=== PATIENT | male | born 1965 | race Hispanic/Latino ===

== ENCOUNTER 2017-08-18 05:31 | Emergency (ER) | payer OTHER ==
[~2017-08-18 05:31] MED LIST: ALBU90AE IH; ALPR0.255 PO; BENZ200C53 PO; BUDE0.5A3 IH; CODE10LI PO; DILT120T15 PO; ENOX40DI9 SQ; FAMO20TA8 PO; INSLAN SQ; LEVO750P7 IV; PIPE3.379 IV; POLY17PO3 PO; PRED20TA3 PO; TIOT18CA3 IH; TRAZ150T79 PO
[2017-08-18] MEDS ORDERED: ONDANSETRON HCL 4 MG/2 ML VIAL ONE (05:44)
[2017-08-18] MEDS ORDERED: METHYLPREDNISOLONE SOD SUCC 125MG/2ML VIAL ONE (05:44)
[2017-08-18] MEDS ORDERED: IPRATROPIUM/ALBUTEROL SULFATE 3 ML SOLUTION IH ONE ×2 (05:49→06:21)
[2017-08-18 05:55] LABS: BASOPHILS % (AUTO) 0.5 % (0.0-5.0); EOSINOPHILS % (AUTO) 0.4 % (0.0-8.0); HEMATOCRIT 38.7 % (42-54); LYMPHOCYTES % (AUTO) 16.2 % (21.0-51.0); MEAN CORPUSCULAR HEMOGLOBIN 30.5 pg (27.0-33.0); MEAN CORPUSCULAR HGB CONC 34.5 g/dL (32.0-36.0); MEAN CORPUSCULAR VOLUME 88.3 fL (79-99); MONOCYTES % (AUTO) 13.1 % (3.0-13.0); NEUTROPHILS % (AUTO) 69.8 % (40.0-77.0); NUCLEATED RED BLOOD CELLS 0.1 % (0.0-0.19); PLATELET COUNT (AUTO) 183 K/uL (130-400); RED BLOOD CELL COUNT(AUTO) 4.39 MIL/uL (4.50-6.20); RED CELL DISTRIBUTION WIDTH 16.9 % (11.0-15.5); WHITE BLOOD COUNT (AUTO) 6.8 K/uL (4.8-10.8)
[2017-08-18 06:07] LABS: CREATININE 0.8 mg/dL (0.5-1.5); POTASSIUM 4.5 mmol/L (3.5-5.1)
[2017-08-18 06:15] LABS: B-TYPE NATRIURETIC PEPTIDE 43 pg/mL (0-100)
[2017-08-18] MEDS ORDERED: MORPHINE SULFATE 4 MG/1ML SYG ONE (06:22)
[2017-08-18] MEDS ORDERED: LEVOFLOXACIN 750 MG/D5W 150 ML 150 ML ONE (07:41)
[2017-08-18] MEDS ORDERED: ALBUTEROL SULFATE 0.083% 2.5 MG/3 ML INH IH ONE (07:54)
[2017-08-18] MEDS ORDERED: ACETAMINOPHEN-CODEINE ELIXIR 5 ML UDCUP ONE (08:00)
[2017-12-27] MEDS ORDERED: TRAZ-147 PO (11:13)
== END 2017-08-18 10:31 | disposition home or self-care (01) ==
LOC: EDH 05:31
DX: J44.1 Chronic obstructive pulmonary disease with (acute) exacerbation (principal); I11.0 Hypertensive heart disease with heart failure; I50.9 Heart failure, unspecified; E11.9 Type 2 diabetes mellitus without complications; Z98.890 Other specified postprocedural states; Z88.8 Allergy status to other drugs, medicaments and biological substances
CPT/HCPCS: 36415; 71010; 80048; 83880; 84484; 85025; 87804 ×2; 93005; 94640 ×3; 96365; 96374; 96375; 99285; J1956; J2270; J2405; J2930

== ENCOUNTER 2017-08-23 13:04 | Inpatient (IN) | payer OTHER ==
[~2017-08-23] VITALS: Ht 182.9 cm; Wt 120.8 kg
[2017-08-23 13:38] LABS: BASOPHILS % (AUTO) 0.1 % (0.0-5.0); HEMATOCRIT 42.2 % (42-54); LYMPHOCYTES % (AUTO) 3.5 % (21.0-51.0); MEAN CORPUSCULAR HEMOGLOBIN 29.6 pg (27.0-33.0); MEAN CORPUSCULAR HGB CONC 33.9 g/dL (32.0-36.0); MEAN CORPUSCULAR VOLUME 87.2 fL (79-99); MONOCYTES % (AUTO) 10.5 % (3.0-13.0); NEUTROPHILS % (AUTO) 85.9 % (40.0-77.0); PLATELET COUNT (AUTO) 170 K/uL (130-400); RED BLOOD CELL COUNT(AUTO) 4.84 MIL/uL (4.50-6.20); WHITE BLOOD COUNT (AUTO) 9.1 K/uL (4.8-10.8)
[2017-08-23 13:45] LABS: POTASSIUM 3.9 mmol/L (3.5-5.1)
[2017-08-23 13:52] LABS: ABG BASE EXCESS 3.5 mmol/L (-2.0-3.0); ABG HCO3 27.6 mmol/L (21.0-28.0); ABG OXYGEN SATURATION 97.2 % (95.0-99.0); ABG PCO2 40 mmHg (35-48)
[2017-08-23] MEDS ORDERED: 1/2 NORMAL SALINE 1,000 ML IV ONE (15:00)
[2017-08-23] MEDS ORDERED: LEVOFLOXACIN 750 MG/D5W 150 ML 150 ML ONE (15:00)
[2017-08-23] MEDS ORDERED: IPRATROPIUM 0.5 MG/2.5 ML INH IH ONE (15:09)
[2017-08-23] MEDS ORDERED: ALBUTEROL SULFATE 0.083% 2.5 MG/3 ML INH IH ONE (15:09)
[2017-08-23] MEDS ORDERED: VANCOMYCIN 1GM+NS 250ML 250 ML IV ONE (16:35)
[2017-08-23] MEDS ORDERED: HYDROMORPHONE HCL 0.5 MG/0.5 ML ML ONE ×2 (17:07→21:18)
[2017-08-23] MEDS ORDERED: IPRATROPIUM/ALBUTEROL SULFATE 3 ML SOLUTION IH ONE ×2 (18:12→23:40)
[2017-08-23 19:27] LABS: APPEARANCE,URINE Clear (CLEAR); BILIRUBIN,URINE Negative (NEGATIVE); COLOR,URINE Yellow (YELLOW); GLUCOSE, URINE (UA) 250 mg/dL (NEGATIVE); KETONES,URINE Negative (NEGATIVE); LEUKOCYTE ESTERASE ,URINE Negative (NEGATIVE); NITRATE,URINE Negative (NEGATIVE); OCCULT BLOOD,URINE Negative (NEGATIVE); PROTEIN,URINE Negative (NEGATIVE)
[2017-08-23 19:36] LABS: BACTERIA,URINE None Seen /HPF (None Seen); RBC,URINE None Seen /HPF (0-1); SQUAMOUS EPITHELIAL CELL,UR 0-2 /LPF (0-2); WBC,URINE 0-1 /HPF (0-1)
[2017-08-24] MEDS ORDERED: HYDROMORPHONE HCL 0.5 MG/0.5 ML ML ONE ×2 (01:27→04:59)
[2017-08-24] MEDS ORDERED: ISOVUE-370 50ML VIAL IV ONE (03:52)
[2017-08-24 05:42] LABS: BASOPHILS % (AUTO) 0.5 % (0.0-5.0); EOSINOPHILS % (AUTO) 0.7 % (0.0-8.0); HEMATOCRIT 41.2 % (42-54); LYMPHOCYTES % (AUTO) 11.7 % (21.0-51.0); MEAN CORPUSCULAR HEMOGLOBIN 29.6 pg (27.0-33.0); MEAN CORPUSCULAR HGB CONC 33.9 g/dL (32.0-36.0); MEAN CORPUSCULAR VOLUME 87.4 fL (79-99); MONOCYTES % (AUTO) 14.7 % (3.0-13.0); NEUTROPHILS % (AUTO) 72.4 % (40.0-77.0); NUCLEATED RED BLOOD CELLS 0.1 % (0.0-0.19); PLATELET COUNT (AUTO) 149 K/uL (130-400); RED BLOOD CELL COUNT(AUTO) 4.72 MIL/uL (4.50-6.20); RED CELL DISTRIBUTION WIDTH 17.3 % (11.0-15.5); WHITE BLOOD COUNT (AUTO) 7.2 K/uL (4.8-10.8)
[2017-08-24 05:51] LABS: CREATININE 0.8 mg/dL (0.5-1.5)
[2017-08-24] MEDS ORDERED: SODIUM CHLORIDE 3% FOR INHALATION 4 ML/AMP VIAL.NEB IH ONE (06:43)
[2017-08-24] MEDS ORDERED: IPRATROPIUM 0.5 MG/2.5 ML INH IH ONE ×2 (06:52→11:24)
[2017-08-24] MEDS ORDERED: ALBUTEROL SULFATE 0.083% 2.5 MG/3 ML INH IH ONE ×2 (06:52→11:24)
[2017-08-24] MEDS ORDERED: DOCUSATE SODIUM 100 MG CAP PO PRN (07:30)
[2017-08-24] MEDS: INSULIN R PO SSI SQ SCH ×4 (07:30→21:00)
[2017-08-24] MEDS ORDERED: DEXTROSE 50%-WATER 50 ML DISP.SYRIN IV PRN (07:30)
[2017-08-24] MEDS ORDERED: GLUCAGON 1MG KIT 1 MG ML IM PRN (07:30)
[2017-08-24] MEDS ORDERED: HYDROMORPHONE 1 MG/1 ML AMP ONE ×2 (08:41→12:43)
[2017-08-24] MEDS ORDERED: ACETAMINOPHEN 325 MG TAB ONE (10:34)
[2017-08-24] MEDS ORDERED: IPRATROPIUM/ALBUTEROL SULFATE 3 ML SOLUTION IH ONE (11:25)
[2017-08-24] MEDS: IPRATROPIUM/ALBUTEROL SULFATE 3 ML SOLUTION IH SCH ×2 (11:29→18:52)
[2017-08-24 14:30] VITALS: BP 118/72
[2017-08-24 16:00] VITALS: BP 108/70
[2017-08-24] MEDS ORDERED: HYDROMORPHONE HCL 0.5 MG/0.5 ML ML IVP PRN (18:00)
[2017-08-24 19:39] VITALS: BP 132/82
[2017-08-24] MEDS: 1/2 NORMAL SALINE 1,000 ML IV SCH (20:37)
[2017-08-24] MEDS: ACETAMINOPHEN 325 MG TAB PO PRN (20:44)
[2017-08-24] MEDS ORDERED: MORPHINE SULFATE 2 MG/ML 1ML SYG IM PRN (23:30)
[2017-08-24 23:48] VITALS: BP 118/73
[2017-08-25] MEDS: IPRATROPIUM/ALBUTEROL SULFATE 3 ML SOLUTION IH SCH ×5 (00:07→23:14)
[2017-08-25] MEDS ORDERED: SODIUM CHLORIDE 0.9% 1000ML 1,000 ML IV ONE ×2 (03:15→04:02)
[2017-08-25 03:40] VITALS: BP 104/64
[2017-08-25] MEDS: 1/2 NORMAL SALINE 1,000 ML IV SCH ×2 (05:56→15:34)
[2017-08-25] MEDS: INSULIN R PO SSI SQ SCH ×4 (05:57→20:28)
[2017-08-25] MEDS: MORPHINE SULFATE 2 MG/ML 1ML SYG IV PRN ×5 (06:43→22:19)
[2017-08-25] MEDS ORDERED: DILTIAZEM 125MG+100 ML NS 125 ML IV SCH (06:45)
[2017-08-25 07:25] VITALS: BP 126/76
[2017-08-25] MEDS: LEVOFLOXACIN 750 MG/D5W 150 ML 150 ML IV SCH (10:05)
[2017-08-25 11:01] VITALS: BP 90/57
[2017-08-25] MEDS ORDERED: TRAZODONE HCL 100 MG TABLET PO PRN (14:15)
[2017-08-25] MEDS ORDERED: DILTIAZEM HCL 120 MG CAP.SR.24H PO ONE (14:49)
[2017-08-25] MEDS ORDERED: LEVOFLOXACIN 750 MG/D5W 150 ML 150 ML IV SCH (15:00)
[2017-08-25] MEDS ORDERED: DILTIAZEM HCL 120 MG CAP.SR.24H PO SCH (15:00)
[2017-08-25 16:37] VITALS: BP 132/59
[2017-08-25] MEDS ORDERED: PHARMACY COMMUNICATION MISC SCH (17:15)
[2017-08-25] MEDS: ALPRAZOLAM 0.25 MG TABLET PO SCH ×2 (17:32→20:42)
[2017-08-25] MEDS: ACETAMINOPHEN 325 MG TAB PO PRN ×2 (17:33→20:42)
[2017-08-25] MEDS: GUAIFENESIN-CODEINE 5 ML SYRUP PO SCH ×2 (17:33→20:43)
[2017-08-25] MEDS: DILTIAZEM HCL 120 MG CAP.SR.24H PO SCH (17:33)
[2017-08-25] MEDS ORDERED: OSELTAMIVIR PHOSPHATE 75 MG CAP PO SCH (18:30)
[2017-08-25 18:52] LABS: APPEARANCE,URINE Clear (CLEAR); BILIRUBIN,URINE Negative (NEGATIVE); COLOR,URINE Yellow (YELLOW); GLUCOSE, URINE (UA) Negative (NEGATIVE); KETONES,URINE Negative (NEGATIVE); LEUKOCYTE ESTERASE ,URINE Trace (NEGATIVE); NITRATE,URINE Negative (NEGATIVE); OCCULT BLOOD,URINE Negative (NEGATIVE); PH,URINE 7.5 (5.0-8.0); PROTEIN,URINE Negative (NEGATIVE)
[2017-08-25 19:18] LABS: BACTERIA,URINE None Seen /HPF (None Seen); RBC,URINE None Seen /HPF (0-1); SQUAMOUS EPITHELIAL CELL,UR 0-2 /LPF (0-2); WBC,URINE 0-1 /HPF (0-1)
[2017-08-25 19:33] VITALS: BP 108/56
[2017-08-25] MEDS ORDERED: CEFEPIME 1GM+NS 50ML 50 ML IV SCH ×2 (20:00→22:00)
[2017-08-25] MEDS: FAMOTIDINE 20MG TAB 20 MG TAB PO SCH (20:41)
[2017-08-25] MEDS: PREDNISONE 20 MG TABLET PO SCH (20:42)
[2017-08-25] MEDS: OSELTAMIVIR PHOSPHATE 75 MG CAP PO SCH (20:42)
[2017-08-25] MEDS: BENZONATATE 100 MG CAPSULE PO SCH (20:43)
[2017-08-25] MEDS: CEFEPIME HCL 1 GM VIAL IVP SCH (22:19)
[2017-08-25 23:32] VITALS: BP 121/71
[2017-08-26] VITALS (7 sets, daily range): BP systolic 109–154; BP diastolic 62–91
[2017-08-26] MEDS: 1/2 NORMAL SALINE 1,000 ML IV SCH ×2 (01:00→21:00)
[2017-08-26] MEDS: IPRATROPIUM/ALBUTEROL SULFATE 3 ML SOLUTION IH SCH ×5 (01:58→23:33)
[2017-08-26 04:31] LABS: HEMATOCRIT 41.7 % (42-54); MEAN CORPUSCULAR HEMOGLOBIN 29.7 pg (27.0-33.0); MEAN CORPUSCULAR HGB CONC 33.9 g/dL (32.0-36.0); MEAN CORPUSCULAR VOLUME 87.6 fL (79-99); PLATELET COUNT (AUTO) 105 K/uL (130-400); RED BLOOD CELL COUNT(AUTO) 4.76 MIL/uL (4.50-6.20); RED CELL DISTRIBUTION WIDTH 17.5 % (11.0-15.5); WHITE BLOOD COUNT (AUTO) 6.3 K/uL (4.8-10.8)
[2017-08-26] MEDS: CEFEPIME HCL 1 GM VIAL IVP SCH ×3 (04:33→22:32)
[2017-08-26] MEDS: MORPHINE SULFATE 2 MG/ML 1ML SYG IV PRN ×5 (04:34→22:44)
[2017-08-26 05:03] LABS: POTASSIUM 4.5 mmol/L (3.5-5.1)
[2017-08-26] MEDS: INSULIN R PO SSI SQ SCH ×4 (07:06→21:00)
[2017-08-26] MEDS: ALPRAZOLAM 0.25 MG TABLET PO SCH ×4 (08:19→22:33)
[2017-08-26] MEDS: DILTIAZEM HCL 120 MG CAP.SR.24H PO SCH ×2 (08:20→17:05)
[2017-08-26] MEDS: SPIRIVA IH SCH (08:20)
[2017-08-26] MEDS: PREDNISONE 20 MG TABLET PO SCH ×2 (08:20→22:33)
[2017-08-26] MEDS: GUAIFENESIN-CODEINE 5 ML SYRUP PO SCH ×4 (08:20→22:34)
[2017-08-26] MEDS: OSELTAMIVIR PHOSPHATE 75 MG CAP PO SCH ×2 (08:20→22:33)
[2017-08-26] MEDS: BENZONATATE 100 MG CAPSULE PO SCH ×3 (08:20→22:33)
[2017-08-26] MEDS: INSULIN GLARGINE 100 UNITS/ML 10 ML VIAL SQ SCH (08:37)
[2017-08-26] MEDS: LEVOFLOXACIN 750 MG/D5W 150 ML 150 ML IV SCH (09:38)
[2017-08-26] MEDS: FAMOTIDINE 20MG TAB 20 MG TAB PO SCH (22:33)
[2017-08-27 04:00] VITALS: BP 117/84
[2017-08-27] MEDS: 1/2 NORMAL SALINE 1,000 ML IV SCH ×3 (04:13→22:20)
[2017-08-27] MEDS: MORPHINE SULFATE 2 MG/ML 1ML SYG IV PRN ×5 (04:14→20:45)
[2017-08-27] MEDS: CEFEPIME HCL 1 GM VIAL IVP SCH ×3 (06:02→22:21)
[2017-08-27] MEDS: INSULIN R PO SSI SQ SCH ×4 (06:15→20:49)
[2017-08-27] MEDS: INSULIN GLARGINE 100 UNITS/ML 10 ML VIAL SQ SCH (06:16)
[2017-08-27] MEDS ORDERED: INSULIN GLARGINE 100 UNITS/ML 10 ML VIAL SQ ONE (06:19)
[2017-08-27] MEDS: IPRATROPIUM/ALBUTEROL SULFATE 3 ML SOLUTION IH SCH ×3 (06:20→19:25)
[2017-08-27 07:01] LABS: HEMATOCRIT 40.6 % (42-54); MEAN CORPUSCULAR HEMOGLOBIN 29.8 pg (27.0-33.0); MEAN CORPUSCULAR HGB CONC 33.7 g/dL (32.0-36.0); MEAN CORPUSCULAR VOLUME 88.4 fL (79-99); PLATELET COUNT (AUTO) 104 K/uL (130-400); RED BLOOD CELL COUNT(AUTO) 4.59 MIL/uL (4.50-6.20); RED CELL DISTRIBUTION WIDTH 17.3 % (11.0-15.5); WHITE BLOOD COUNT (AUTO) 5.9 K/uL (4.8-10.8)
[2017-08-27 07:26] LABS: ALBUMIN 2.6 g/dL (3.5-5.0); BILIRUBIN,TOTAL 0.3 mg/dL (0.2-1.0); CREATININE 0.8 mg/dL (0.5-1.5); POTASSIUM 4.5 mmol/L (3.5-5.1); TOTAL PROTEIN, SERUM 5.8 g/dL (6.0-8.3)
[2017-08-27 08:00] VITALS: BP 125/77
[2017-08-27] MEDS: SPIRIVA IH SCH (09:00)
[2017-08-27] MEDS: GUAIFENESIN-CODEINE 5 ML SYRUP PO SCH ×4 (09:03→20:44)
[2017-08-27] MEDS: LEVOFLOXACIN 750 MG/D5W 150 ML 150 ML IV SCH (09:04)
[2017-08-27] MEDS: BENZONATATE 100 MG CAPSULE PO SCH ×3 (09:04→20:44)
[2017-08-27] MEDS: ALPRAZOLAM 0.25 MG TABLET PO SCH ×4 (09:04→20:45)
[2017-08-27] MEDS: PREDNISONE 20 MG TABLET PO SCH ×2 (09:04→20:45)
[2017-08-27] MEDS: DILTIAZEM HCL 120 MG CAP.SR.24H PO SCH ×2 (09:04→17:33)
[2017-08-27] MEDS: OSELTAMIVIR PHOSPHATE 75 MG CAP PO SCH ×2 (09:04→20:44)
[2017-08-27 12:00] VITALS: BP 130/86
[2017-08-27 16:00] VITALS: BP 134/71
[2017-08-27 20:00] VITALS: BP 122/70
[2017-08-27] MEDS: FAMOTIDINE 20MG TAB 20 MG TAB PO SCH (20:45)
[2017-08-27 23:45] VITALS: BP 122/76
[2017-08-28] MEDS: IPRATROPIUM/ALBUTEROL SULFATE 3 ML SOLUTION IH SCH ×5 (00:38→23:52)
[2017-08-28] MEDS: MORPHINE SULFATE 2 MG/ML 1ML SYG IV PRN ×8 (00:50→22:38)
[2017-08-28] MEDS: 1/2 NORMAL SALINE 1,000 ML IV SCH ×3 (03:00→20:22)
[2017-08-28 03:54] VITALS: BP 127/75
[2017-08-28] MEDS: CEFEPIME HCL 1 GM VIAL IVP SCH ×3 (06:07→22:29)
[2017-08-28] MEDS: INSULIN R PO SSI SQ SCH ×4 (06:08→20:30)
[2017-08-28 08:00] VITALS: BP 128/85
[2017-08-28] MEDS: GUAIFENESIN-CODEINE 5 ML SYRUP PO SCH ×4 (08:46→20:23)
[2017-08-28] MEDS: PREDNISONE 20 MG TABLET PO SCH ×2 (08:47→20:24)
[2017-08-28] MEDS: ALPRAZOLAM 0.25 MG TABLET PO SCH ×4 (08:47→20:23)
[2017-08-28] MEDS: OSELTAMIVIR PHOSPHATE 75 MG CAP PO SCH ×2 (08:47→20:23)
[2017-08-28] MEDS: BENZONATATE 100 MG CAPSULE PO SCH ×3 (08:47→20:23)
[2017-08-28] MEDS: DILTIAZEM HCL 120 MG CAP.SR.24H PO SCH ×2 (08:47→17:29)
[2017-08-28] MEDS: SPIRIVA IH SCH (08:48)
[2017-08-28] MEDS: LEVOFLOXACIN 750 MG/D5W 150 ML 150 ML IV SCH (09:00)
[2017-08-28] MEDS: INSULIN GLARGINE 100 UNITS/ML 10 ML VIAL SQ SCH (09:09)
[2017-08-28 12:00] VITALS: BP 128/84
[2017-08-28 16:00] VITALS: BP 136/79
[2017-08-28 20:00] VITALS: BP 117/65
[2017-08-28] MEDS: FAMOTIDINE 20MG TAB 20 MG TAB PO SCH (20:23)
[2017-08-28 23:40] VITALS: BP 122/76
[2017-08-29] MEDS: MORPHINE SULFATE 2 MG/ML 1ML SYG IV PRN ×5 (03:23→14:44)
[2017-08-29 03:54] VITALS: BP 110/86
[2017-08-29] MEDS: CEFEPIME HCL 1 GM VIAL IVP SCH ×3 (05:31→22:19)
[2017-08-29] MEDS: 1/2 NORMAL SALINE 1,000 ML IV SCH ×2 (05:31→17:54)
[2017-08-29] MEDS: INSULIN R PO SSI SQ SCH ×4 (06:13→20:56)
[2017-08-29] MEDS: INSULIN GLARGINE 100 UNITS/ML 10 ML VIAL SQ SCH (06:14)
[2017-08-29] MEDS: IPRATROPIUM/ALBUTEROL SULFATE 3 ML SOLUTION IH SCH ×4 (07:01→23:48)
[2017-08-29 08:00] VITALS: BP 134/81
[2017-08-29] MEDS: DILTIAZEM HCL 120 MG CAP.SR.24H PO SCH ×2 (08:35→17:42)
[2017-08-29] MEDS: ALPRAZOLAM 0.25 MG TABLET PO SCH ×4 (08:35→20:12)
[2017-08-29] MEDS: OSELTAMIVIR PHOSPHATE 75 MG CAP PO SCH ×2 (08:35→20:11)
[2017-08-29] MEDS: BENZONATATE 100 MG CAPSULE PO SCH ×3 (08:35→20:11)
[2017-08-29] MEDS: GUAIFENESIN-CODEINE 5 ML SYRUP PO SCH ×4 (08:36→20:12)
[2017-08-29] MEDS: PREDNISONE 20 MG TABLET PO SCH (08:36)
[2017-08-29] MEDS: LEVOFLOXACIN 750 MG/D5W 150 ML 150 ML IV SCH (08:36)
[2017-08-29] MEDS: SPIRIVA IH SCH (08:41)
[2017-08-29 12:00] VITALS: BP 141/84
[2017-08-29 16:00] VITALS: BP 140/92
[2017-08-29] MEDS ORDERED: HYDROMORPHONE HCL 2 MG/ML VIAL ONE (17:14)
[2017-08-29] MEDS: HYDROMORPHONE HCL 2 MG/ML VIAL IVP PRN ×3 (17:43→23:57)
[2017-08-29 20:00] VITALS: BP 150/89
[2017-08-29] MEDS: FAMOTIDINE 20MG TAB 20 MG TAB PO SCH (20:11)
[2017-08-29] MEDS: PREDNISONE 10 MG TABLET PO SCH (20:11)
[2017-08-29 23:38] VITALS: BP 130/78
[2017-08-30] VITALS (21 sets, daily range): BP systolic 104–152; BP diastolic 58–104
[2017-08-30] MEDS: HYDROMORPHONE HCL 2 MG/ML VIAL IVP PRN ×5 (03:22→22:55)
[2017-08-30 05:21] LABS: INR 0.94 (0.85-1.15); PARTIAL THROMBOPLASTIN TIME 25.3 SEC (26.3-35.5); PROTHROMBIN TIME 9.9 SEC (9.6-11.6)
[2017-08-30 05:39] LABS: CREATININE 0.9 mg/dL (0.5-1.5); POTASSIUM 4.2 mmol/L (3.5-5.1)
[2017-08-30] MEDS: INSULIN R PO SSI SQ SCH ×4 (05:55→21:00)
[2017-08-30] MEDS: 1/2 NORMAL SALINE 1,000 ML IV SCH (05:56)
[2017-08-30] MEDS: CEFEPIME HCL 1 GM VIAL IVP SCH ×3 (05:56→21:53)
[2017-08-30 06:02] LABS: HEMATOCRIT 41.5 % (42-54); MEAN CORPUSCULAR HEMOGLOBIN 29.5 pg (27.0-33.0); MEAN CORPUSCULAR HGB CONC 33.8 g/dL (32.0-36.0); MEAN CORPUSCULAR VOLUME 87.4 fL (79-99); PLATELET COUNT (AUTO) 125 K/uL (130-400); RED BLOOD CELL COUNT(AUTO) 4.75 MIL/uL (4.50-6.20); WHITE BLOOD COUNT (AUTO) 11.8 K/uL (4.8-10.8)
[2017-08-30] MEDS: METOCLOPRAMIDE 10 MG/2 ML VIAL IVP PRN (06:06)
[2017-08-30] MEDS: IPRATROPIUM/ALBUTEROL SULFATE 3 ML SOLUTION IH SCH ×4 (06:12→23:30)
[2017-08-30] MEDS: INSULIN GLARGINE 100 UNITS/ML 10 ML VIAL SQ SCH (08:00)
[2017-08-30] MEDS: LEVOFLOXACIN 750 MG/D5W 150 ML 150 ML IV SCH (08:59)
[2017-08-30] MEDS: SPIRIVA IH SCH (09:00)
[2017-08-30] MEDS: DILTIAZEM HCL 120 MG CAP.SR.24H PO SCH ×2 (09:08→17:56)
[2017-08-30] MEDS: OSELTAMIVIR PHOSPHATE 75 MG CAP PO SCH (09:09)
[2017-08-30] MEDS: ALPRAZOLAM 0.25 MG TABLET PO SCH ×4 (09:09→21:42)
[2017-08-30] MEDS: BENZONATATE 100 MG CAPSULE PO SCH ×3 (09:09→21:42)
[2017-08-30] MEDS: GUAIFENESIN-CODEINE 5 ML SYRUP PO SCH ×5 (09:09→21:42)
[2017-08-30] MEDS: PREDNISONE 10 MG TABLET PO SCH ×2 (09:09→21:42)
[2017-08-30] MEDS ORDERED: MIDAZOLAM HCL 1 MG/ML 2ML VIAL ONE (12:40)
[2017-08-30] MEDS ORDERED: SUCCINYLCHOLINE 200MG/10ML SYR ONE (12:40)
[2017-08-30] MEDS ORDERED: ONDANSETRON HCL 4 MG/2 ML VIAL ONE (12:40)
[2017-08-30] MEDS ORDERED: FENTANYL CITRATE PF 50 MCG/1 ML 2ML VIAL ONE (12:40)
[2017-08-30] MEDS ORDERED: LIDOCAINE PF 2% 5ML ABBOJECT ONE (12:40)
[2017-08-30] MEDS ORDERED: NEOSTIGMINE METHYLSULFATE 1MG/ML IV ONE (12:40)
[2017-08-30] MEDS ORDERED: DEXAMETHASONE SOD PHOSPHATE 10MG/ML 1ML VIAL ONE (12:40)
[2017-08-30] MEDS ORDERED: GLYCOPYRROLATE 0.2 MG/ML 5 ML VIAL ONE (12:40)
[2017-08-30] MEDS ORDERED: PROPOFOL 10 MG/ML 20ML VIAL IV ONE ×2 (12:40→13:02)
[2017-08-30 18:25] LABS: APPEARANCE BODY FLUID CLOUDY (CLEAR); COLOR,BODY FLUID LT YELLOW (LT YELLOW); SPECIMENTYPE,BODY FLUID LAVAGE; TOTAL VOLUME,BODY FLUID 28 mL
[2017-08-30 18:26] LABS: BODY FLUID RBC 33 /cu. mm.; BODY FLUID WBC 182 /cu. mm.
[2017-08-30 18:41] LABS: BF EOSINOPHIL 4 %; BF LYMPHOCYTE 4 %; BF MONOCYTE 1 %
[2017-08-30] MEDS: FAMOTIDINE 20MG TAB 20 MG TAB PO SCH (21:41)
[2017-08-31] MEDS: HYDROMORPHONE HCL 2 MG/ML VIAL IVP PRN ×5 (01:37→14:01)
[2017-08-31 03:00] VITALS: BP 137/81
[2017-08-31] MEDS: INSULIN R PO SSI SQ SCH ×4 (05:29→21:00)
[2017-08-31] MEDS: IPRATROPIUM/ALBUTEROL SULFATE 3 ML SOLUTION IH SCH ×4 (06:14→23:45)
[2017-08-31] MEDS: CEFEPIME HCL 1 GM VIAL IVP SCH ×3 (06:38→22:06)
[2017-08-31 08:00] VITALS: BP 113/82
[2017-08-31] MEDS: SPIRIVA IH SCH (09:00)
[2017-08-31] MEDS: PREDNISONE 10 MG TABLET PO SCH ×2 (09:18→22:05)
[2017-08-31] MEDS: ALPRAZOLAM 0.25 MG TABLET PO SCH ×4 (09:18→22:05)
[2017-08-31] MEDS: GUAIFENESIN-CODEINE 5 ML SYRUP PO SCH ×3 (09:18→22:05)
[2017-08-31] MEDS: BENZONATATE 100 MG CAPSULE PO SCH ×3 (09:19→22:05)
[2017-08-31] MEDS: LEVOFLOXACIN 750 MG/D5W 150 ML 150 ML IV SCH (09:19)
[2017-08-31] MEDS: DILTIAZEM HCL 120 MG CAP.SR.24H PO SCH ×2 (09:19→16:46)
[2017-08-31] MEDS: INSULIN GLARGINE 100 UNITS/ML 10 ML VIAL SQ SCH (10:37)
[2017-08-31 11:00] VITALS: BP 126/76
[2017-08-31 12:12] LABS: HEMATOCRIT 42.6 % (42-54); MEAN CORPUSCULAR HEMOGLOBIN 29.2 pg (27.0-33.0); MEAN CORPUSCULAR HGB CONC 33.7 g/dL (32.0-36.0); MEAN CORPUSCULAR VOLUME 86.7 fL (79-99); PLATELET COUNT (AUTO) 124 K/uL (130-400); RED BLOOD CELL COUNT(AUTO) 4.91 MIL/uL (4.50-6.20); RED CELL DISTRIBUTION WIDTH 16.9 % (11.0-15.5); WHITE BLOOD COUNT (AUTO) 14.2 K/uL (4.8-10.8)
[2017-08-31 12:21] LABS: POTASSIUM 3.7 mmol/L (3.5-5.1)
[2017-08-31 16:00] VITALS: BP 137/76
[2017-08-31] MEDS: HYDROCODONE/ACETAMINOPHEN 7.5/325 MG TAB PO PRN (16:03)
[2017-08-31] MEDS ORDERED: MORPHINE SULFATE 4 MG/1ML SYG ONE ×2 (17:40→21:04)
[2017-08-31 19:00] VITALS: BP 136/75
[2017-08-31] MEDS: FAMOTIDINE 20MG TAB 20 MG TAB PO SCH (22:05)
[2017-08-31] MEDS: GABAPENTIN 100 MG CAPSULE PO SCH (22:05)
[2017-08-31 23:00] VITALS: BP 133/77
[2017-09-01 03:00] VITALS: BP 124/74
[2017-09-01] MEDS: INSULIN R PO SSI SQ SCH ×4 (06:08→21:00)
[2017-09-01] MEDS: CEFEPIME HCL 1 GM VIAL IVP SCH ×3 (06:09→22:36)
[2017-09-01] MEDS: MORPHINE SULFATE 4 MG/1ML SYG ONE ×2 (06:41→06:43)
[2017-09-01] MEDS: IPRATROPIUM/ALBUTEROL SULFATE 3 ML SOLUTION IH SCH ×4 (07:07→23:49)
[2017-09-01 08:00] VITALS: BP 133/84
[2017-09-01] MEDS: INSULIN GLARGINE 100 UNITS/ML 10 ML VIAL SQ SCH (08:00)
[2017-09-01] MEDS: SPIRIVA IH SCH (09:00)
[2017-09-01] MEDS: LEVOFLOXACIN 750 MG/D5W 150 ML 150 ML IV SCH (09:58)
[2017-09-01] MEDS: GUAIFENESIN-CODEINE 5 ML SYRUP PO SCH ×4 (09:58→20:09)
[2017-09-01] MEDS: METOCLOPRAMIDE 10 MG/2 ML VIAL IVP PRN ×2 (09:59→16:57)
[2017-09-01] MEDS: BENZONATATE 100 MG CAPSULE PO SCH ×3 (09:59→20:08)
[2017-09-01] MEDS: GABAPENTIN 100 MG CAPSULE PO SCH ×3 (10:00→20:08)
[2017-09-01] MEDS: DILTIAZEM HCL 120 MG CAP.SR.24H PO SCH ×2 (10:00→16:57)
[2017-09-01] MEDS: PREDNISONE 10 MG TABLET PO SCH ×2 (10:00→20:08)
[2017-09-01] MEDS: ALPRAZOLAM 0.25 MG TABLET PO SCH ×4 (10:00→20:08)
[2017-09-01] MEDS: HYDROCODONE/ACETAMINOPHEN 7.5/325 MG TAB PO PRN ×3 (10:13→20:13)
[2017-09-01 12:00] VITALS: BP 103/51
[2017-09-01 16:00] VITALS: BP 134/85
[2017-09-01] MEDS: FAMOTIDINE 20MG TAB 20 MG TAB PO SCH (20:08)
[2017-09-01 20:37] VITALS: BP 125/85
[2017-09-02] VITALS (7 sets, daily range): BP systolic 118–137; BP diastolic 74–89
[2017-09-02] MEDS: HYDROCODONE/ACETAMINOPHEN 7.5/325 MG TAB PO PRN ×6 (00:29→21:54)
[2017-09-02] MEDS: CEFEPIME HCL 1 GM VIAL IVP SCH ×3 (05:43→21:28)
[2017-09-02] MEDS: METOCLOPRAMIDE 10 MG/2 ML VIAL IVP PRN (05:43)
[2017-09-02] MEDS: IPRATROPIUM/ALBUTEROL SULFATE 3 ML SOLUTION IH SCH ×3 (06:40→19:45)
[2017-09-02] MEDS: INSULIN R PO SSI SQ SCH ×4 (07:29→21:00)
[2017-09-02] MEDS: SPIRIVA IH SCH (09:00)
[2017-09-02] MEDS: BENZONATATE 100 MG CAPSULE PO SCH ×3 (10:12→19:50)
[2017-09-02] MEDS: LEVOFLOXACIN 750 MG/D5W 150 ML 150 ML IV SCH (10:12)
[2017-09-02] MEDS: GUAIFENESIN-CODEINE 5 ML SYRUP PO SCH ×4 (10:12→19:51)
[2017-09-02] MEDS: GABAPENTIN 100 MG CAPSULE PO SCH ×3 (10:13→19:57)
[2017-09-02] MEDS: DILTIAZEM HCL 120 MG CAP.SR.24H PO SCH ×2 (10:13→17:43)
[2017-09-02] MEDS: ALPRAZOLAM 0.25 MG TABLET PO SCH ×4 (10:13→19:57)
[2017-09-02] MEDS: PREDNISONE 10 MG TABLET PO SCH ×2 (10:13→19:50)
[2017-09-02] MEDS: INSULIN GLARGINE 100 UNITS/ML 10 ML VIAL SQ SCH (10:32)
[2017-09-02] MEDS: FAMOTIDINE 20MG TAB 20 MG TAB PO SCH (19:56)
[2017-09-03] MEDS: IPRATROPIUM/ALBUTEROL SULFATE 3 ML SOLUTION IH SCH ×3 (00:57→11:24)
[2017-09-03] MEDS: HYDROCODONE/ACETAMINOPHEN 7.5/325 MG TAB PO PRN ×2 (01:58→05:56)
[2017-09-03 03:00] VITALS: BP 115/74
[2017-09-03] MEDS: CEFEPIME HCL 1 GM VIAL IVP SCH (05:36)
[2017-09-03] MEDS: INSULIN R PO SSI SQ SCH (06:44)
[2017-09-03 07:00] VITALS: BP_SYST 137; BP_SYST 141; BP_DIAS 67; BP_DIAS 84
[2017-09-03] MEDS: SPIRIVA IH SCH (09:00)
[2017-09-03] MEDS: INSULIN GLARGINE 100 UNITS/ML 10 ML VIAL SQ SCH (10:38)
[2017-09-03] MEDS: BENZONATATE 100 MG CAPSULE PO SCH (10:49)
[2017-09-03] MEDS: LEVOFLOXACIN 750 MG/D5W 150 ML 150 ML IV SCH (10:49)
[2017-09-03] MEDS: DILTIAZEM HCL 120 MG CAP.SR.24H PO SCH (10:50)
[2017-09-03] MEDS: GABAPENTIN 100 MG CAPSULE PO SCH (10:50)
[2017-09-03] MEDS: PREDNISONE 10 MG TABLET PO SCH (10:50)
[2017-09-03] MEDS: ALPRAZOLAM 0.25 MG TABLET PO SCH (10:50)
[2017-09-03] MEDS: GUAIFENESIN-CODEINE 5 ML SYRUP PO SCH (10:51)
[2017-09-03 12:00] VITALS: BP 140/85
[2017-12-27] MEDS ORDERED: TRAZ-147 PO (11:13)
== END 2017-09-03 14:30 | DRG 853 ==
LOC: EDH 13:04 → EDHIP 14:43 → 2AH 08-24 14:09 → 3CH 08-25 23:19 → 3BH 09-02 12:57
PROVIDERS: ADMIT Internal Medicine; ATTEND Internal Medicine
PROC: 0B9G8ZX Drainage of Left Upper Lung Lobe, Via Natural or Artificial Opening Endoscopic, Diagnostic (ICD-10-PCS; principal; 2017-08-30)
PROC: 0BJ08ZZ Inspection of Tracheobronchial Tree, Via Natural or Artificial Opening Endoscopic (ICD-10-PCS; 2017-08-30)
DX: A41.9 Sepsis, unspecified organism (principal); J18.9 Pneumonia, unspecified organism; J96.01 Acute respiratory failure with hypoxia; B37.0 Candidal stomatitis; N39.0 Urinary tract infection, site not specified; J44.1 Chronic obstructive pulmonary disease with (acute) exacerbation; J44.0 Chronic obstructive pulmonary disease with (acute) lower respiratory infection; E11.40 Type 2 diabetes mellitus with diabetic neuropathy, unspecified; Y95 Nosocomial condition; G47.33 Obstructive sleep apnea (adult) (pediatric); E66.01 Morbid (severe) obesity due to excess calories; E78.5 Hyperlipidemia, unspecified; I10 Essential (primary) hypertension; Z68.36 Body mass index [BMI] 36.0-36.9, adult; Z88.8 Allergy status to other drugs, medicaments and biological substances
CPT/HCPCS: 36415; 36600; 71045; 71046; 71270; 76000; 80048; 80053; 81001; 82803; 82948; 85025; 85027; 85610; 85730; 87040; 87071; 87077; 87101; 87116; 87205; 87206; 87804; 89051; 94640; 94660; 94664; 94667; 94668; A4218; J0330; J0692; J1100; J1170; J1815; J1956; J2001; J2250; J2270; J2405; J2704; J2710; J2765; J3010; J3370; J3490; J7030; J7512; Q9967

== ENCOUNTER 2017-12-19 22:08 | Inpatient (IN) | payer OTHER ==
[~2017-12-19] VITALS: Ht 182.9 cm; Wt 114.3 kg
[~2017-12-19 22:08] MED LIST changes: -ENOX40DI9 SQ; -LEVO750P7 IV; -PIPE3.379 IV
[2017-12-19] MEDS ORDERED: ASPIRIN 325 MG TABLET ONE (22:19)
[2017-12-19 22:21] LABS: BASOPHILS % (AUTO) 0.5 % (0.0-5.0); EOSINOPHILS % (AUTO) 1.1 % (0.0-8.0); HEMATOCRIT 45.7 % (42-54); LYMPHOCYTES % (AUTO) 10.1 % (21.0-51.0); MEAN CORPUSCULAR HEMOGLOBIN 28.7 pg (27.0-33.0); MEAN CORPUSCULAR HGB CONC 34.1 g/dL (32.0-36.0); MEAN CORPUSCULAR VOLUME 84.2 fL (79-99); MONOCYTES % (AUTO) 8.5 % (3.0-13.0); NEUTROPHILS % (AUTO) 79.8 % (40.0-77.0); NUCLEATED RED BLOOD CELLS 0.1 % (0.0-0.19); PLATELET COUNT (AUTO) 224 K/uL (130-400); RED BLOOD CELL COUNT(AUTO) 5.43 MIL/uL (4.50-6.20); RED CELL DISTRIBUTION WIDTH 15.8 % (11.0-15.5); WHITE BLOOD COUNT (AUTO) 8.1 K/uL (4.8-10.8)
[2017-12-19] MEDS ORDERED: NITROGLYCERIN 0.4 MG SL TAB SL ONE (22:41)
[2017-12-19] MEDS ORDERED: ONDANSETRON HCL MDV 20ML 2 MG/ML VIAL ONE (22:42)
[2017-12-19] MEDS ORDERED: SODIUM CHLORIDE 0.9% 1000ML 1,000 ML IV ONE (22:42)
[2017-12-19 22:53] LABS: AMYLASE 32 U/L (25-115); LIPASE 51 U/L (114-286)
[2017-12-19 22:54] LABS: CREATININE 0.9 mg/dL (0.5-1.5); INR 0.97 (0.85-1.15); PARTIAL THROMBOPLASTIN TIME 28.3 SEC (26.3-35.5); POTASSIUM 3.5 mmol/L (3.5-5.1); PROTHROMBIN TIME 10.2 SEC (9.6-11.6)
[2017-12-19 23:08] LABS: ALBUMIN 2.8 g/dL (3.5-5.0); BILIRUBIN,TOTAL 0.8 mg/dL (0.2-1.0); CREATINE KINASE MB 0.8 ng/mL (0.5-3.6); TOTAL PROTEIN, SERUM 6.5 g/dL (6.0-8.3)
[2017-12-19] MEDS ORDERED: MORPHINE SULFATE 4 MG/1ML SYG ONE (23:24)
[2017-12-20] VITALS (7 sets, daily range): BP systolic 116–139; BP diastolic 74–96
[2017-12-20] MEDS ORDERED: DICYCLOMINE HCL 10 MG/ML 2ML AMP IM ONE (00:10)
[2017-12-20] MEDS ORDERED: MORPHINE SULFATE 4 MG/1ML SYG ONE (00:16)
[2017-12-20] MEDS ORDERED: NITROGLYCERIN 0.4 MG SL TAB SL PRN (00:45)
[2017-12-20] MEDS ORDERED: POTASSIUM CHLORIDE 10% ELIXIR 20 MEQ/15 ML UDCUP PO PRN (00:45)
[2017-12-20] MEDS ORDERED: POTASSIUM CHLORIDE 20 MEQ ERTAB PO PRN (00:45)
[2017-12-20] MEDS: SODIUM CHLORIDE 0.9% 1000ML 1,000 ML IV SCH ×4 (01:15→13:28)
[2017-12-20] MEDS ORDERED: GLUCAGON 1MG KIT 1 MG ML IM PRN (01:30)
[2017-12-20] MEDS ORDERED: HYDRALAZINE HCL 20 MG/ML VIAL IV PRN (01:30)
[2017-12-20] MEDS: POTASSIUM CHLORIDE 20MEQ/100ML 100 ML IV PRN (03:22)
[2017-12-20] MEDS: LORAZEPAM 2 MG/ML 1 ML VIAL IVP PRN ×2 (03:22→21:23)
[2017-12-20] MEDS: LIDOCAINE HCL-MPF 1% 2ML VIAL IVP PRN (03:22)
[2017-12-20] MEDS: MORPHINE SULFATE 4 MG/1ML SYG IV PRN ×4 (05:35→21:14)
[2017-12-20] MEDS: INSULIN HUMULIN R 100 UNIT/ML 3ML SQ SCH ×3 (06:00→18:00)
[2017-12-20] MEDS ORDERED: ONDANSETRON HCL 4 MG/2 ML VIAL ONE (06:11)
[2017-12-20] MEDS: IPRATROPIUM/ALBUTEROL SULFATE 3 ML SOLUTION IH SCH ×2 (06:30→18:47)
[2017-12-20] MEDS ORDERED: PANTOPRAZOLE SODIUM 40 MG TABLET.DR PO SCH (09:00)
[2017-12-20] MEDS ORDERED: DIATR MEGLU/DIATRIZOATE SODIUM 30 ML BOTTLE ONE (09:43)
[2017-12-20] MEDS: FAMOTIDINE/PF 20 MG/2 ML VIAL IV SCH ×2 (10:00→21:14)
[2017-12-20] MEDS: OLANZAPINE 10MG/ML 1ML VIAL IM SCH (10:47)
[2017-12-20] MEDS: ONDANSETRON HCL MDV 20ML 2 MG/ML VIAL IVP PRN ×2 (14:51→22:05)
[2017-12-20] MEDS: ZOSYN 3.375GM+NS 50ML 50 ML IV SCH (18:39)
[2017-12-20] MEDS: METRONIDAZOLE 500MG/100ML BAG 100 ML IV SCH (21:14)
[2017-12-21] MEDS: ZOSYN 3.375GM+NS 50ML 50 ML IV SCH ×3 (02:29→17:23)
[2017-12-21] MEDS: MORPHINE SULFATE 4 MG/1ML SYG IV PRN ×5 (02:29→21:23)
[2017-12-21 03:50] VITALS: BP 115/68
[2017-12-21 04:44] LABS: BASOPHILS % (AUTO) 0.3 % (0.0-5.0); EOSINOPHILS % (AUTO) 0.5 % (0.0-8.0); HEMATOCRIT 44.4 % (42-54); LYMPHOCYTES % (AUTO) 8.9 % (21.0-51.0); MEAN CORPUSCULAR HEMOGLOBIN 28.7 pg (27.0-33.0); MEAN CORPUSCULAR HGB CONC 33.8 g/dL (32.0-36.0); MEAN CORPUSCULAR VOLUME 84.8 fL (79-99); MONOCYTES % (AUTO) 10.6 % (3.0-13.0); NEUTROPHILS % (AUTO) 79.7 % (40.0-77.0); PLATELET COUNT (AUTO) 202 K/uL (130-400); RED BLOOD CELL COUNT(AUTO) 5.24 MIL/uL (4.50-6.20); RED CELL DISTRIBUTION WIDTH 16.3 % (11.0-15.5)
[2017-12-21 04:59] LABS: INR 1.06 (0.85-1.15); PARTIAL THROMBOPLASTIN TIME 31.1 SEC (26.3-35.5); PROTHROMBIN TIME 11.1 SEC (9.6-11.6)
[2017-12-21 05:00] LABS: CREATININE 1.1 mg/dL (0.5-1.5); MAGNESIUM 2.3 mg/dL (1.80-2.40); POTASSIUM 3.9 mmol/L (3.5-5.1)
[2017-12-21] MEDS: INSULIN HUMULIN R 100 UNIT/ML 3ML SQ SCH ×4 (06:00→18:00)
[2017-12-21] MEDS: LORAZEPAM 2 MG/ML 1 ML VIAL IVP PRN ×2 (06:11→22:57)
[2017-12-21] MEDS: METRONIDAZOLE 500MG/100ML BAG 100 ML IV SCH ×3 (06:12→21:14)
[2017-12-21] MEDS: ONDANSETRON HCL MDV 20ML 2 MG/ML VIAL IVP PRN ×3 (06:14→22:57)
[2017-12-21] MEDS: IPRATROPIUM/ALBUTEROL SULFATE 3 ML SOLUTION IH SCH ×2 (06:45→18:28)
[2017-12-21 08:00] VITALS: BP 130/89
[2017-12-21] MEDS: FAMOTIDINE/PF 20 MG/2 ML VIAL IV SCH ×2 (10:08→21:14)
[2017-12-21] MEDS: SODIUM CHLORIDE 0.9% 1000ML 1,000 ML IV SCH ×2 (10:27→17:23)
[2017-12-21 12:00] VITALS: BP 143/75
[2017-12-21] MEDS: OLANZAPINE 10MG/ML 1ML VIAL IM SCH (13:03)
[2017-12-21 16:00] VITALS: BP 121/75
[2017-12-21 20:00] VITALS: BP 130/89
[2017-12-21 23:57] VITALS: BP 106/72
[2017-12-22] MEDS: SODIUM CHLORIDE 0.9% 1000ML 1,000 ML IV SCH ×3 (01:27→22:22)
[2017-12-22] MEDS: ZOSYN 3.375GM+NS 50ML 50 ML IV SCH ×3 (01:27→18:25)
[2017-12-22] MEDS: MORPHINE SULFATE 4 MG/1ML SYG IV PRN ×5 (01:32→20:00)
[2017-12-22 04:00] VITALS: BP 128/87
[2017-12-22 04:40] LABS: BASOPHILS % (AUTO) 0.4 % (0.0-5.0); EOSINOPHILS % (AUTO) 4.1 % (0.0-8.0); HEMATOCRIT 43.5 % (42-54); LYMPHOCYTES % (AUTO) 7.9 % (21.0-51.0); MEAN CORPUSCULAR HEMOGLOBIN 28.1 pg (27.0-33.0); MEAN CORPUSCULAR HGB CONC 33.1 g/dL (32.0-36.0); MEAN CORPUSCULAR VOLUME 84.8 fL (79-99); MONOCYTES % (AUTO) 15.1 % (3.0-13.0); NEUTROPHILS % (AUTO) 72.5 % (40.0-77.0); PLATELET COUNT (AUTO) 177 K/uL (130-400); RED BLOOD CELL COUNT(AUTO) 5.13 MIL/uL (4.50-6.20); RED CELL DISTRIBUTION WIDTH 16.2 % (11.0-15.5); WHITE BLOOD COUNT (AUTO) 4.9 K/uL (4.8-10.8)
[2017-12-22 05:11] LABS: CREATININE 1.2 mg/dL (0.5-1.5); POTASSIUM 3.4 mmol/L (3.5-5.1)
[2017-12-22] MEDS: INSULIN HUMULIN R 100 UNIT/ML 3ML SQ SCH ×5 (06:00→22:49)
[2017-12-22] MEDS: METRONIDAZOLE 500MG/100ML BAG 100 ML IV SCH ×3 (06:00→22:00)
[2017-12-22] MEDS: IPRATROPIUM/ALBUTEROL SULFATE 3 ML SOLUTION IH SCH ×2 (06:16→18:36)
[2017-12-22 08:00] VITALS: BP 122/67
[2017-12-22] MEDS: FAMOTIDINE/PF 20 MG/2 ML VIAL IV SCH ×2 (09:21→20:00)
[2017-12-22] MEDS: OLANZAPINE 10MG/ML 1ML VIAL IM SCH (09:52)
[2017-12-22 12:00] VITALS: BP 129/85
[2017-12-22] MEDS: LORAZEPAM 2 MG/ML 1 ML VIAL IVP PRN ×2 (13:43→21:23)
[2017-12-22] MEDS: POTASSIUM CHLORIDE 20MEQ/100ML 100 ML IV PRN (14:30)
[2017-12-22] MEDS: LIDOCAINE HCL-MPF 1% 2ML VIAL IVP PRN (14:30)
[2017-12-22 16:00] VITALS: BP 126/88
[2017-12-22 19:14] VITALS: BP_SYST 122; BP_SYST 138; BP_DIAS 63; BP_DIAS 88
[2017-12-22 23:16] VITALS: BP 127/77
[2017-12-23] MEDS: MORPHINE SULFATE 4 MG/1ML SYG IV PRN ×4 (00:03→13:44)
[2017-12-23] MEDS: ZOSYN 3.375GM+NS 50ML 50 ML IV SCH ×3 (02:00→17:50)
[2017-12-23 03:15] VITALS: BP 109/64
[2017-12-23 04:31] LABS: BASOPHILS % (AUTO) 0.5 % (0.0-5.0); EOSINOPHILS % (AUTO) 4.1 % (0.0-8.0); HEMATOCRIT 37.7 % (42-54); LYMPHOCYTES % (AUTO) 12.1 % (21.0-51.0); MEAN CORPUSCULAR HEMOGLOBIN 29.6 pg (27.0-33.0); MEAN CORPUSCULAR HGB CONC 34.9 g/dL (32.0-36.0); MEAN CORPUSCULAR VOLUME 84.6 fL (79-99); MONOCYTES % (AUTO) 15.5 % (3.0-13.0); NEUTROPHILS % (AUTO) 67.8 % (40.0-77.0); PLATELET COUNT (AUTO) 174 K/uL (130-400); RED BLOOD CELL COUNT(AUTO) 4.45 MIL/uL (4.50-6.20); RED CELL DISTRIBUTION WIDTH 16.3 % (11.0-15.5); WHITE BLOOD COUNT (AUTO) 4.9 K/uL (4.8-10.8)
[2017-12-23 04:39] LABS: CREATININE 0.8 mg/dL (0.5-1.5); POTASSIUM 3.2 mmol/L (3.5-5.1)
[2017-12-23] MEDS: DEXTROSE 50%-WATER 50 ML DISP.SYRIN IV PRN (05:46)
[2017-12-23] MEDS: INSULIN HUMULIN R 100 UNIT/ML 3ML SQ SCH ×3 (05:46→17:52)
[2017-12-23] MEDS: METRONIDAZOLE 500MG/100ML BAG 100 ML IV SCH ×3 (05:46→22:47)
[2017-12-23] MEDS: IPRATROPIUM/ALBUTEROL SULFATE 3 ML SOLUTION IH SCH ×2 (06:04→18:18)
[2017-12-23] MEDS: POTASSIUM CHLORIDE 20MEQ/100ML 100 ML IV PRN ×2 (06:38→11:38)
[2017-12-23 08:00] VITALS: BP 122/77
[2017-12-23] MEDS: FAMOTIDINE/PF 20 MG/2 ML VIAL IV SCH ×2 (08:39→21:08)
[2017-12-23] MEDS: OLANZAPINE 10MG/ML 1ML VIAL IM SCH (08:40)
[2017-12-23] MEDS: SODIUM CHLORIDE 0.9% 1000ML 1,000 ML IV SCH (08:40)
[2017-12-23] MEDS: LORAZEPAM 2 MG/ML 1 ML VIAL IVP PRN (11:36)
[2017-12-23] MEDS: LIDOCAINE HCL-MPF 1% 2ML VIAL IVP PRN (11:39)
[2017-12-23 12:00] VITALS: BP 131/77
[2017-12-23] MEDS ORDERED: CHLORPROMAZINE HCL 25 MG/ML 1ML AMP IV SCH (14:30)
[2017-12-23 16:00] VITALS: BP 124/80
[2017-12-23 19:11] VITALS: BP_SYST 125; BP_SYST 130; BP_DIAS 70; BP_DIAS 74
[2017-12-23 23:27] VITALS: BP 116/80
[2017-12-24] MEDS: MORPHINE SULFATE 4 MG/1ML SYG IV PRN ×4 (00:12→20:28)
[2017-12-24 03:09] VITALS: BP 126/72
[2017-12-24] MEDS: ZOSYN 3.375GM+NS 50ML 50 ML IV SCH ×3 (03:23→17:58)
[2017-12-24] MEDS: DEXTROSE 50%-WATER 50 ML DISP.SYRIN IV PRN ×3 (03:23→14:02)
[2017-12-24] MEDS: SODIUM CHLORIDE 0.9% 1000ML 1,000 ML IV SCH ×2 (03:29→17:57)
[2017-12-24] MEDS: INSULIN HUMULIN R 100 UNIT/ML 3ML SQ SCH ×3 (06:00→18:00)
[2017-12-24 06:03] LABS: BASOPHILS % (AUTO) 0.2 % (0.0-5.0); EOSINOPHILS % (AUTO) 4.2 % (0.0-8.0); HEMATOCRIT 36.6 % (42-54); LYMPHOCYTES % (AUTO) 10.3 % (21.0-51.0); MEAN CORPUSCULAR HEMOGLOBIN 28.3 pg (27.0-33.0); MEAN CORPUSCULAR HGB CONC 33.4 g/dL (32.0-36.0); MEAN CORPUSCULAR VOLUME 84.5 fL (79-99); MONOCYTES % (AUTO) 12.7 % (3.0-13.0); NEUTROPHILS % (AUTO) 72.6 % (40.0-77.0); PLATELET COUNT (AUTO) 173 K/uL (130-400); RED BLOOD CELL COUNT(AUTO) 4.33 MIL/uL (4.50-6.20); RED CELL DISTRIBUTION WIDTH 16.2 % (11.0-15.5); WHITE BLOOD COUNT (AUTO) 6.4 K/uL (4.8-10.8)
[2017-12-24 06:15] LABS: CREATININE 0.7 mg/dL (0.5-1.5); POTASSIUM 3.1 mmol/L (3.5-5.1)
[2017-12-24] MEDS: IPRATROPIUM/ALBUTEROL SULFATE 3 ML SOLUTION IH SCH ×2 (06:28→18:23)
[2017-12-24] MEDS: METRONIDAZOLE 500MG/100ML BAG 100 ML IV SCH ×3 (06:41→21:39)
[2017-12-24 08:00] VITALS: BP 121/68
[2017-12-24] MEDS: FAMOTIDINE/PF 20 MG/2 ML VIAL IV SCH ×2 (08:41→20:24)
[2017-12-24] MEDS: OLANZAPINE 10MG/ML 1ML VIAL IM SCH (08:41)
[2017-12-24] MEDS: POTASSIUM CHLORIDE 20MEQ/100ML 100 ML IV PRN ×2 (09:52→23:09)
[2017-12-24] MEDS: LIDOCAINE HCL-MPF 1% 2ML VIAL IVP PRN (09:52)
[2017-12-24 12:00] VITALS: BP 136/73
[2017-12-24 16:00] VITALS: BP 130/86
[2017-12-24] MEDS: LORAZEPAM 2 MG/ML 1 ML VIAL IVP PRN (17:59)
[2017-12-24 19:27] VITALS: BP 127/81
[2017-12-24] MEDS: DEXTROSE 5%-WATER 1,000 ML IV SCH (21:39)
[2017-12-24 23:20] VITALS: BP 106/69
[2017-12-25] MEDS: LORAZEPAM 2 MG/ML 1 ML VIAL IVP PRN ×2 (00:07→14:20)
[2017-12-25] MEDS: ZOSYN 3.375GM+NS 50ML 50 ML IV SCH ×3 (02:16→17:49)
[2017-12-25 03:31] VITALS: BP 114/89
[2017-12-25] MEDS: METRONIDAZOLE 500MG/100ML BAG 100 ML IV SCH ×3 (05:37→22:02)
[2017-12-25] MEDS: INSULIN HUMULIN R 100 UNIT/ML 3ML SQ SCH ×4 (05:54→21:00)
[2017-12-25 06:02] LABS: BASOPHILS % (AUTO) 0.6 % (0.0-5.0); EOSINOPHILS % (AUTO) 6.2 % (0.0-8.0); HEMATOCRIT 35.9 % (42-54); LYMPHOCYTES % (AUTO) 20.5 % (21.0-51.0); MEAN CORPUSCULAR HGB CONC 34.5 g/dL (32.0-36.0); MEAN CORPUSCULAR VOLUME 84.1 fL (79-99); MONOCYTES % (AUTO) 14.9 % (3.0-13.0); NEUTROPHILS % (AUTO) 57.8 % (40.0-77.0); PLATELET COUNT (AUTO) 178 K/uL (130-400); RED BLOOD CELL COUNT(AUTO) 4.27 MIL/uL (4.50-6.20); RED CELL DISTRIBUTION WIDTH 16.7 % (11.0-15.5); WHITE BLOOD COUNT (AUTO) 5.2 K/uL (4.8-10.8)
[2017-12-25 06:06] LABS: CREATININE 0.8 mg/dL (0.5-1.5)
[2017-12-25] MEDS: IPRATROPIUM/ALBUTEROL SULFATE 3 ML SOLUTION IH SCH ×2 (06:29→18:10)
[2017-12-25] MEDS ORDERED: DIATR MEGLU/DIATRIZOATE SODIUM 30 ML BOTTLE ONE ×2 (07:56→11:24)
[2017-12-25 08:00] VITALS: BP 142/91
[2017-12-25] MEDS: MORPHINE SULFATE 4 MG/1ML SYG IV PRN ×3 (09:13→17:49)
[2017-12-25] MEDS: FAMOTIDINE/PF 20 MG/2 ML VIAL IV SCH ×2 (09:13→22:02)
[2017-12-25] MEDS: DEXTROSE 5%-WATER 1,000 ML IV SCH ×2 (09:14→17:53)
[2017-12-25] MEDS: OLANZAPINE 10MG/ML 1ML VIAL IM SCH (10:26)
[2017-12-25 13:08] VITALS: BP 108/68
[2017-12-25] MEDS ORDERED: IOPAMIDOL-370 75 ML VIAL IV ONE (13:46)
[2017-12-25 17:32] VITALS: BP 109/63
[2017-12-25] MEDS: ONDANSETRON HCL MDV 20ML 2 MG/ML VIAL IVP PRN (17:49)
[2017-12-25] MEDS ORDERED: HYDROMORPHONE 1 MG/1 ML AMP IVP SCH (19:00)
[2017-12-25 19:12] VITALS: BP 128/82
[2017-12-25] MEDS ORDERED: LORAZEPAM 0.5 MG TABLET PO ONE (21:00)
[2017-12-26] VITALS (21 sets, daily range): BP systolic 93–139; BP diastolic 49–104
[2017-12-26] MEDS: ZOSYN 3.375GM+NS 50ML 50 ML IV SCH ×3 (03:27→21:09)
[2017-12-26] MEDS: DEXTROSE 5%-WATER 1,000 ML IV SCH ×3 (03:31→21:09)
[2017-12-26] MEDS: MORPHINE SULFATE 4 MG/1ML SYG IV PRN ×4 (03:34→21:49)
[2017-12-26 05:03] LABS: BASOPHILS % (AUTO) 0.7 % (0.0-5.0); EOSINOPHILS % (AUTO) 3.9 % (0.0-8.0); HEMATOCRIT 40.6 % (42-54); LYMPHOCYTES % (AUTO) 15.7 % (21.0-51.0); MEAN CORPUSCULAR HEMOGLOBIN 28.1 pg (27.0-33.0); MEAN CORPUSCULAR HGB CONC 33.7 g/dL (32.0-36.0); MEAN CORPUSCULAR VOLUME 83.5 fL (79-99); MONOCYTES % (AUTO) 15.9 % (3.0-13.0); NEUTROPHILS % (AUTO) 63.8 % (40.0-77.0); PLATELET COUNT (AUTO) 212 K/uL (130-400); RED BLOOD CELL COUNT(AUTO) 4.86 MIL/uL (4.50-6.20); RED CELL DISTRIBUTION WIDTH 16.4 % (11.0-15.5); WHITE BLOOD COUNT (AUTO) 5.3 K/uL (4.8-10.8)
[2017-12-26 05:07] LABS: CREATININE 0.9 mg/dL (0.5-1.5); POTASSIUM 3.9 mmol/L (3.5-5.1)
[2017-12-26] MEDS: INSULIN HUMULIN R 100 UNIT/ML 3ML SQ SCH ×4 (05:45→21:00)
[2017-12-26] MEDS: METRONIDAZOLE 500MG/100ML BAG 100 ML IV SCH ×4 (06:04→22:07)
[2017-12-26] MEDS: IPRATROPIUM/ALBUTEROL SULFATE 3 ML SOLUTION IH SCH ×2 (06:30→22:13)
[2017-12-26] MEDS: FAMOTIDINE/PF 20 MG/2 ML VIAL IV SCH ×2 (08:28→21:47)
[2017-12-26] MEDS: OLANZAPINE 5 MG TAB PO SCH (09:00)
[2017-12-26] MEDS: ONDANSETRON HCL MDV 20ML 2 MG/ML VIAL IVP PRN (11:56)
[2017-12-26] MEDS: LORAZEPAM 2 MG/ML 1 ML VIAL IVP PRN ×2 (13:46→22:18)
[2017-12-26] MEDS ORDERED: MIDAZOLAM HCL 1 MG/ML 2ML VIAL ONE (14:38)
[2017-12-26] MEDS ORDERED: PROPOFOL 10 MG/ML 20ML VIAL IV ONE (14:38)
[2017-12-26] MEDS ORDERED: FENTANYL CITRATE PF 50 MCG/1 ML 2ML VIAL ONE ×3 (14:38→16:46)
[2017-12-26] MEDS ORDERED: ONDANSETRON HCL MDV 20ML 2 MG/ML VIAL ONE (15:42)
[2017-12-26] MEDS ORDERED: SUCCINYLCHOLINE CHLORIDE 20 MG/ML 10 ML VIAL ONE (15:42)
[2017-12-26] MEDS ORDERED: ROCURONIUM BROMIDE 10MG/1ML 5ML VL ONE (15:42)
[2017-12-26] MEDS ORDERED: DEXAMETHASONE SOD PHOSPHATE 10MG/ML 1ML VIAL ONE (15:42)
[2017-12-26] MEDS ORDERED: FENTANYL CITRATE PF 50 MCG/1 ML 5ML AMP IV ONE (18:13)
[2017-12-26] MEDS ORDERED: HYDROCODONE/ACETAMINOPHEN 5/325 MG TAB PO PRN ×2 (20:00)
[2017-12-26] MEDS ORDERED: EPHEDRINE SULFATE 50 MG/ML AMPULE IVP PRN (20:00)
[2017-12-26] MEDS ORDERED: PROMETHAZINE HCL 25 MG/ML 1ML AMPULE IM PRN (20:00)
[2017-12-26] MEDS ORDERED: ONDANSETRON HCL 4 MG/2 ML VIAL IVP PRN ×2 (20:00)
[2017-12-26] MEDS ORDERED: NALOXONE HCL 0.4 MG/1 ML ML IVP PRN ×2 (20:00)
[2017-12-26] MEDS ORDERED: ONDANSETRON HCL 4 MG/2 ML 8 MG in SODIUM CHLORIDE 0.9% 50 ML IVP NR (20:00)
[2017-12-26] MEDS: ROPIVACAINE 0.2%200ML EPIDURAL 200 ML EP SCH (20:02)
[2017-12-26 21:17] LABS: HEMATOCRIT 45.6 % (42-54); MEAN CORPUSCULAR HGB CONC 33.2 g/dL (32.0-36.0); MEAN CORPUSCULAR VOLUME 84.4 fL (79-99); PLATELET COUNT (AUTO) 225 K/uL (130-400); RED BLOOD CELL COUNT(AUTO) 5.41 MIL/uL (4.50-6.20); RED CELL DISTRIBUTION WIDTH 16.3 % (11.0-15.5); WHITE BLOOD COUNT (AUTO) 7.1 K/uL (4.8-10.8)
[2017-12-26 21:31] LABS: MAGNESIUM 1.5 mg/dL (1.80-2.40); POTASSIUM 4.1 mmol/L (3.5-5.1)
[2017-12-26 21:46] LABS: BAND NEUTROPHILS % (MANUAL) 50 % (0-2); LYMPHOCYTES % (MANUAL) 5 % (22-44); MAN.DIFF COMMENT-IMPRESSION MANUAL DIFFERENTIAL; MONOCYTES % (MANUAL) 6 % (2-9); SEGMENTED NEUTROPHILS % 39 % (40-70)
[2017-12-26 22:16] LABS: ABG BASE EXCESS -3.9 mmol/L (-2.0-3.0); ABG HCO3 19.2 mmol/L (21.0-28.0); ABG OXYGEN SATURATION 99.8 % (95.0-99.0); ABG PCO2 30 mmHg (35-48)
[2017-12-26] MEDS ORDERED: LACTATED RINGERS 1000ML 1,000 ML IV ONE (22:35)
[2017-12-27] VITALS (41 sets, daily range): BP systolic 77–135; BP diastolic 33–93
[2017-12-27] MEDS: MORPHINE SULFATE 4 MG/1ML SYG IV PRN ×2 (01:16→02:56)
[2017-12-27] MEDS: LACTATED RINGERS 1000ML IV PRN ×2 (01:43→06:21)
[2017-12-27 02:16] LABS: ABG BASE EXCESS -3.6 mmol/L (-2.0-3.0); ABG HCO3 18.6 mmol/L (21.0-28.0); ABG OXYGEN SATURATION 97.5 % (95.0-99.0); ABG PCO2 27 mmHg (35-48)
[2017-12-27] MEDS: ZOSYN 3.375GM+NS 50ML 50 ML IV SCH ×3 (03:38→17:27)
[2017-12-27] MEDS ORDERED: MAGNESIUM 2GM PREMIX 50ML 50 ML IV PRN (03:45)
[2017-12-27 03:53] LABS: HEMATOCRIT 42.1 % (42-54); LYMPHOCYTES % (AUTO) 3.3 % (21.0-51.0); MEAN CORPUSCULAR HEMOGLOBIN 28.9 pg (27.0-33.0); MEAN CORPUSCULAR VOLUME 84.8 fL (79-99); MONOCYTES % (AUTO) 2.4 % (3.0-13.0); NEUTROPHILS % (AUTO) 94.3 % (40.0-77.0); PLATELET COUNT (AUTO) 230 K/uL (130-400); RED BLOOD CELL COUNT(AUTO) 4.96 MIL/uL (4.50-6.20); RED CELL DISTRIBUTION WIDTH 16.6 % (11.0-15.5)
[2017-12-27] MEDS: MORPHINE SULFATE 2 MG/ML 1ML SYG IVP PRN ×2 (04:05→05:12)
[2017-12-27 04:07] LABS: CREATININE 1.3 mg/dL (0.5-1.5); MAGNESIUM 1.4 mg/dL (1.80-2.40); PHOSPHORUS 3.3 mg/dL (2.5-4.9); POTASSIUM 4.1 mmol/L (3.5-5.1)
[2017-12-27] MEDS: MAGNESIUM 2GM PREMIX 50ML 50 ML IV PRN ×2 (04:29→09:43)
[2017-12-27] MEDS: INSULIN HUMULIN R 100 UNIT/ML 3ML SQ SCH ×4 (06:19→20:12)
[2017-12-27] MEDS: METRONIDAZOLE 500MG/100ML BAG 100 ML IV SCH ×3 (06:20→21:31)
[2017-12-27] MEDS: DEXTROSE 5%-WATER 1,000 ML IV SCH (06:23)
[2017-12-27] MEDS: ROPIVACAINE 0.2%200ML EPIDURAL 200 ML EP SCH ×2 (07:34→19:53)
[2017-12-27] MEDS: NOREPINEPHRINE 4MG/NS 250ML 250 ML IV PRN (07:56)
[2017-12-27] MEDS ORDERED: MAGNESIUM SULFATE 1 GM in SODIUM CHLORIDE 0.9% 50 ML IV SCH (08:00)
[2017-12-27] MEDS: FAMOTIDINE/PF 20 MG/2 ML VIAL IV SCH ×2 (08:54→20:07)
[2017-12-27] MEDS: OLANZAPINE 5 MG TAB PO SCH (09:42)
[2017-12-27] MEDS ORDERED: HYDROMORPHONE HCL 0.5 MG/0.5 ML ML ONE ×2 (10:03→14:52)
[2017-12-27] MEDS ORDERED: BENZ-51 PO (11:13)
[2017-12-27] MEDS ORDERED: ALBU8.5H8 PUFF (11:13)
[2017-12-27] MEDS ORDERED: INSU3INS3 SQ (11:13)
[2017-12-27] MEDS ORDERED: TIOT18CA3 IH (11:13)
[2017-12-27] MEDS ORDERED: TRAZ-187 PO (11:13)
[2017-12-27] MEDS ORDERED: PRED20TA3 PO (11:13)
[2017-12-27] MEDS ORDERED: DILT120T PO (11:13)
[2017-12-27] MEDS ORDERED: OMEP40CA37 PO (11:13)
[2017-12-27] MEDS ORDERED: OLAN2.5T3 PO (11:13)
[2017-12-27] MEDS ORDERED: IPRA0.2S54 IH (11:13)
[2017-12-27] MEDS ORDERED: GABA-529 PO (11:13)
[2017-12-27] MEDS: DEXTROSE 5%-LACTATED RINGERS 1,000 ML IV SCH ×3 (11:17→23:30)
[2017-12-27] MEDS ORDERED: SODIUM CHLORIDE 0.9% 1000ML 1,000 ML IV SCH (12:15)
[2017-12-27] MEDS: SODIUM CHLORIDE 0.9% 1000ML 1,000 ML IV SCH ×3 (12:15→21:34)
[2017-12-27] MEDS ORDERED: ONDANSETRON HCL MDV 20ML 2 MG/ML VIAL IVP PRN (13:06)
[2017-12-27] MEDS: HYDROMORPHONE 1 MG/1 ML AMP IVP PRN ×2 (14:53→20:08)
[2017-12-27 15:42] LABS: CREATININE 1.6 mg/dL (0.5-1.5); POTASSIUM 4.4 mmol/L (3.5-5.1)
[2017-12-27] MEDS: LORAZEPAM 2 MG/ML 1 ML VIAL IM PRN (17:35)
[2017-12-27] MEDS: IPRATROPIUM/ALBUTEROL SULFATE 3 ML SOLUTION IH SCH (19:07)
[2017-12-27] MEDS: DiphenhydrAMINE HCL 50 MG/ML VIAL IVP PRN (20:30)
[2017-12-28] VITALS (41 sets, daily range): BP systolic 82–145; BP diastolic 42–112
[2017-12-28] MEDS: ZOSYN 3.375GM+NS 50ML 50 ML IV SCH (00:49)
[2017-12-28] MEDS: DiphenhydrAMINE HCL 50 MG/ML VIAL IVP PRN ×2 (00:49→04:52)
[2017-12-28] MEDS: HYDROMORPHONE 1 MG/1 ML AMP IVP PRN ×3 (00:49→21:28)
[2017-12-28] MEDS: NOREPINEPHRINE 4MG/NS 250ML 250 ML IV PRN (02:32)
[2017-12-28 04:19] LABS: BASOPHILS % (AUTO) 0.1 % (0.0-5.0); HEMATOCRIT 38.4 % (42-54); LYMPHOCYTES % (AUTO) 4.2 % (21.0-51.0); MEAN CORPUSCULAR HEMOGLOBIN 28.1 pg (27.0-33.0); MEAN CORPUSCULAR HGB CONC 33.1 g/dL (32.0-36.0); MEAN CORPUSCULAR VOLUME 84.8 fL (79-99); NEUTROPHILS % (AUTO) 91.7 % (40.0-77.0); PLATELET COUNT (AUTO) 209 K/uL (130-400); RED BLOOD CELL COUNT(AUTO) 4.53 MIL/uL (4.50-6.20); WHITE BLOOD COUNT (AUTO) 20.7 K/uL (4.8-10.8)
[2017-12-28 04:39] LABS: ALBUMIN 1.7 g/dL (3.5-5.0); BILIRUBIN,DIRECT 0.2 mg/dL (0.0-0.3); BILIRUBIN,TOTAL 0.5 mg/dL (0.2-1.0); CREATININE 1.6 mg/dL (0.5-1.5); MAGNESIUM 2.5 mg/dL (1.80-2.40); POTASSIUM 4.6 mmol/L (3.5-5.1); TOTAL PROTEIN, SERUM 4.8 g/dL (6.0-8.3)
[2017-12-28] MEDS: INSULIN HUMULIN R 100 UNIT/ML 3ML SQ SCH ×4 (05:51→21:00)
[2017-12-28] MEDS: METRONIDAZOLE 500MG/100ML BAG 100 ML IV SCH ×4 (05:51→23:50)
[2017-12-28] MEDS: IPRATROPIUM/ALBUTEROL SULFATE 3 ML SOLUTION IH SCH ×2 (06:20→18:27)
[2017-12-28] MEDS: ROPIVACAINE 0.2%200ML EPIDURAL 200 ML EP SCH (07:20)
[2017-12-28] MEDS: SODIUM CHLORIDE 0.9% 1000ML 1,000 ML IV SCH ×3 (08:15→20:15)
[2017-12-28] MEDS: FAMOTIDINE/PF 20 MG/2 ML VIAL IV SCH ×2 (10:00→21:21)
[2017-12-28] MEDS: OLANZAPINE 5 MG TAB PO SCH (10:00)
[2017-12-28] MEDS ORDERED: SUCCINYLCHOLINE CHLORIDE 20 MG/ML 10 ML VIAL ONE (10:09)
[2017-12-28] MEDS ORDERED: ROCURONIUM BROMIDE 10MG/1ML 5ML VL ONE (10:09)
[2017-12-28] MEDS ORDERED: PROPOFOL 10 MG/ML 20ML VIAL IV ONE (10:09)
[2017-12-28] MEDS ORDERED: LIDOCAINE PF 2% 5ML ABBOJECT ONE (10:09)
[2017-12-28] MEDS ORDERED: FENTANYL CITRATE PF 50 MCG/1 ML 2ML VIAL ONE (10:10)
[2017-12-28] MEDS ORDERED: SODIUM CHLORIDE 0.9% 1000ML 1,000 ML IV ONE ×2 (11:30→17:00)
[2017-12-28] MEDS: MEPERIDINE-PF 25 MG/ML SYG IVP SCH (12:10)
[2017-12-28] MEDS ORDERED: CEFTAZIDIME 1GM+NS 50ML 50 ML IV SCH (14:00)
[2017-12-28] MEDS ORDERED: MEPERIDINE HCL/PF 25 MG/0.5 ML AMPUL IVP PRN (15:00)
[2017-12-28] MEDS: METOCLOPRAMIDE 10 MG/2 ML VIAL IVP PRN (15:03)
[2017-12-28] MEDS: CEFTAZIDIME PENTAHYDRATE 1 GM/VIAL IVP SCH ×2 (15:46→23:01)
[2017-12-28] MEDS ORDERED: TRAMADOL HCL 50 MG TABLET PO PRN (16:00)
[2017-12-28] MEDS ORDERED: ACETAMINOPHEN 325 MG TAB PO PRN (16:00)
[2017-12-29] VITALS (18 sets, daily range): BP systolic 107–169; BP diastolic 60–99
[2017-12-29] MEDS: HYDROMORPHONE 1 MG/1 ML AMP IVP PRN (01:47)
[2017-12-29] MEDS: ONDANSETRON HCL MDV 20ML 2 MG/ML VIAL IVP PRN ×2 (02:13→17:21)
[2017-12-29] MEDS: METOCLOPRAMIDE 10 MG/2 ML VIAL IVP PRN (03:10)
[2017-12-29 04:14] LABS: HEMATOCRIT 32.3 % (42-54); MEAN CORPUSCULAR HEMOGLOBIN 29.4 pg (27.0-33.0); MEAN CORPUSCULAR HGB CONC 35.3 g/dL (32.0-36.0); MEAN CORPUSCULAR VOLUME 83.3 fL (79-99); PLATELET COUNT (AUTO) 166 K/uL (130-400); RED BLOOD CELL COUNT(AUTO) 3.87 MIL/uL (4.50-6.20); RED CELL DISTRIBUTION WIDTH 16.9 % (11.0-15.5); WHITE BLOOD COUNT (AUTO) 13.8 K/uL (4.8-10.8)
[2017-12-29 04:28] LABS: ALBUMIN 1.5 g/dL (3.5-5.0); BILIRUBIN,TOTAL 0.6 mg/dL (0.2-1.0); CREATININE 0.8 mg/dL (0.5-1.5); POTASSIUM 3.8 mmol/L (3.5-5.1); TOTAL PROTEIN, SERUM 4.5 g/dL (6.0-8.3)
[2017-12-29] MEDS: CEFTAZIDIME PENTAHYDRATE 1 GM/VIAL IVP SCH ×3 (05:13→21:45)
[2017-12-29] MEDS: METRONIDAZOLE 500MG/100ML BAG 100 ML IV SCH ×3 (05:13→17:39)
[2017-12-29] MEDS: INSULIN HUMULIN R 100 UNIT/ML 3ML SQ SCH ×3 (05:22→18:39)
[2017-12-29] MEDS: IPRATROPIUM/ALBUTEROL SULFATE 3 ML SOLUTION IH SCH ×2 (06:45→18:48)
[2017-12-29] MEDS: FAMOTIDINE/PF 20 MG/2 ML VIAL IV SCH ×2 (08:15→21:27)
[2017-12-29] MEDS: SODIUM CHLORIDE 0.9% 1000ML 1,000 ML IV SCH (08:15)
[2017-12-29] MEDS: LIDOCAINE HCL-MPF 1% 2ML VIAL IVP PRN (08:15)
[2017-12-29] MEDS: POTASSIUM CHLORIDE 20MEQ/100ML 100 ML IV PRN (08:16)
[2017-12-29] MEDS ORDERED: MEPERIDINE-PF 25 MG/ML SYG ONE ×2 (08:59→12:02)
[2017-12-29] MEDS: MEPERIDINE-PF 25 MG/ML SYG IVP SCH (09:01)
[2017-12-29] MEDS ORDERED: MEPERIDINE-PF 25 MG/ML SYG IVP PRN (12:15)
[2017-12-29] MEDS: LACTATED RINGERS 1000ML IV SCH ×2 (18:27→18:31)
[2017-12-29] MEDS: HYDROMORPHONE PCA 10 MG/50 ML 50 ML IV PRN (19:27)
[2017-12-29] MEDS: LACTATED RINGERS 1000ML 1,000 ML IV SCH (19:27)
[2017-12-30] VITALS (7 sets, daily range): BP systolic 99–130; BP diastolic 53–87
[2017-12-30] MEDS: METRONIDAZOLE 500MG/100ML BAG 100 ML IV SCH ×5 (01:24→23:10)
[2017-12-30] MEDS: LACTATED RINGERS 1000ML 1,000 ML IV SCH ×2 (01:25→07:35)
[2017-12-30] MEDS: LORAZEPAM 2 MG/ML 1 ML VIAL IM PRN ×2 (01:36→12:37)
[2017-12-30 05:23] LABS: HEMATOCRIT 32.9 % (42-54); MEAN CORPUSCULAR HEMOGLOBIN 28.5 pg (27.0-33.0); MEAN CORPUSCULAR HGB CONC 33.8 g/dL (32.0-36.0); MEAN CORPUSCULAR VOLUME 84.3 fL (79-99); NUCLEATED RED BLOOD CELLS 0.1 % (0.0-0.19); PLATELET COUNT (AUTO) 147 K/uL (130-400); RED CELL DISTRIBUTION WIDTH 17.1 % (11.0-15.5); WHITE BLOOD COUNT (AUTO) 8.4 K/uL (4.8-10.8)
[2017-12-30 05:34] LABS: CREATININE 0.8 mg/dL (0.5-1.5); MAGNESIUM 2.2 mg/dL (1.80-2.40); POTASSIUM 3.5 mmol/L (3.5-5.1)
[2017-12-30 05:39] LABS: BAND NEUTROPHILS % (MANUAL) 12 % (0-2); BASOPHILS % (MANUAL) 2 % (0-2); EOSINOPHILS % (MANUAL) 1 % (1-6); LYMPHOCYTES % (MANUAL) 16 % (22-44); MAN.DIFF COMMENT-IMPRESSION MANUAL DIFFERENTIAL; MONOCYTES % (MANUAL) 2 % (2-9); PLATELET MORPHOLOGY COMMENT ADEQUATE; SEGMENTED NEUTROPHILS % 67 % (40-70)
[2017-12-30 05:41] LABS: B-TYPE NATRIURETIC PEPTIDE 91 pg/mL (0-100)
[2017-12-30] MEDS: INSULIN HUMULIN R 100 UNIT/ML 3ML SQ SCH ×4 (06:00→16:38)
[2017-12-30] MEDS: DEXTROSE 50%-WATER 50 ML DISP.SYRIN IV PRN (06:09)
[2017-12-30] MEDS: CEFTAZIDIME PENTAHYDRATE 1 GM/VIAL IVP SCH ×3 (06:10→21:35)
[2017-12-30] MEDS: IPRATROPIUM/ALBUTEROL SULFATE 3 ML SOLUTION IH SCH ×2 (07:03→18:01)
[2017-12-30] MEDS: FAMOTIDINE/PF 20 MG/2 ML VIAL IV SCH ×2 (09:08→20:55)
[2017-12-30] MEDS ORDERED: DEXTROSE 5 %-0.45 % NACL 1,000 ML IV ONE (09:39)
[2017-12-30] MEDS: DEXTROSE 5 %-0.45 % NACL 1,000 ML IV SCH ×2 (09:45→23:23)
[2017-12-30] MEDS: HEPARIN SODIUM 5000UNIT/ML 1ML VIAL SQ SCH (14:51)
[2017-12-31] MEDS: HEPARIN SODIUM 5000UNIT/ML 1ML VIAL SQ SCH ×2 (01:19→14:38)
[2017-12-31] MEDS: LORAZEPAM 2 MG/ML 1 ML VIAL IM PRN ×3 (01:19→14:36)
[2017-12-31 03:55] VITALS: BP 117/72
[2017-12-31] MEDS: CEFTAZIDIME PENTAHYDRATE 1 GM/VIAL IVP SCH ×3 (05:13→23:11)
[2017-12-31] MEDS: METRONIDAZOLE 500MG/100ML BAG 100 ML IV SCH ×4 (05:13→23:11)
[2017-12-31] MEDS: DEXTROSE 5 %-0.45 % NACL 1,000 ML IV SCH ×2 (05:13→15:45)
[2017-12-31 05:58] LABS: HEMATOCRIT 31.9 % (42-54); MEAN CORPUSCULAR HEMOGLOBIN 29.1 pg (27.0-33.0); MEAN CORPUSCULAR HGB CONC 34.8 g/dL (32.0-36.0); MEAN CORPUSCULAR VOLUME 83.6 fL (79-99); PLATELET COUNT (AUTO) 153 K/uL (130-400); RED BLOOD CELL COUNT(AUTO) 3.81 MIL/uL (4.50-6.20); WHITE BLOOD COUNT (AUTO) 10.1 K/uL (4.8-10.8)
[2017-12-31] MEDS: INSULIN HUMULIN R 100 UNIT/ML 3ML SQ SCH ×4 (06:00→17:37)
[2017-12-31 06:25] LABS: CREATININE 0.7 mg/dL (0.5-1.5); MAGNESIUM 1.9 mg/dL (1.80-2.40); POTASSIUM 3.5 mmol/L (3.5-5.1)
[2017-12-31] MEDS: IPRATROPIUM/ALBUTEROL SULFATE 3 ML SOLUTION IH SCH ×2 (06:47→18:18)
[2017-12-31 08:00] VITALS: BP 114/63
[2017-12-31] MEDS ORDERED: LACTULOSE 20 GM/30 ML UDCUP NG SCH (10:00)
[2017-12-31] MEDS ORDERED: MAGNESIUM HYDROXIDE 30 ML/UDCUP NG SCH (10:00)
[2017-12-31] MEDS: FAMOTIDINE/PF 20 MG/2 ML VIAL IV SCH ×2 (10:13→21:18)
[2017-12-31] MEDS: METOCLOPRAMIDE 10 MG/2 ML VIAL IVP SCH ×2 (10:14→21:18)
[2017-12-31 11:00] VITALS: BP 105/69
[2017-12-31] MEDS ORDERED: POTASSIUM PHOS 15 mMOL+NS250ML 250 ML IV SCH (11:30)
[2017-12-31 16:00] VITALS: BP 109/61
[2017-12-31 20:00] VITALS: BP 114/72
[2018-01-01] VITALS: BP 100/56
[2018-01-01] MEDS: DEXTROSE 5 %-0.45 % NACL 1,000 ML IV SCH ×2 (01:57→15:40)
[2018-01-01] MEDS: HEPARIN SODIUM 5000UNIT/ML 1ML VIAL SQ SCH ×2 (01:58→15:49)
[2018-01-01 04:00] VITALS: BP 103/71
[2018-01-01] MEDS: CEFTAZIDIME PENTAHYDRATE 1 GM/VIAL IVP SCH ×3 (05:35→22:00)
[2018-01-01] MEDS: METRONIDAZOLE 500MG/100ML BAG 100 ML IV SCH ×3 (05:36→17:03)
[2018-01-01] MEDS: INSULIN HUMULIN R 100 UNIT/ML 3ML SQ SCH ×4 (06:00→20:46)
[2018-01-01 06:29] LABS: HEMATOCRIT 32.3 % (42-54); MEAN CORPUSCULAR HEMOGLOBIN 28.2 pg (27.0-33.0); MEAN CORPUSCULAR HGB CONC 33.9 g/dL (32.0-36.0); PLATELET COUNT (AUTO) 160 K/uL (130-400); RED BLOOD CELL COUNT(AUTO) 3.89 MIL/uL (4.50-6.20); RED CELL DISTRIBUTION WIDTH 17.2 % (11.0-15.5); WHITE BLOOD COUNT (AUTO) 8.7 K/uL (4.8-10.8)
[2018-01-01] MEDS: HYDROMORPHONE PCA 10 MG/50 ML 50 ML IV PRN (06:40)
[2018-01-01 06:41] LABS: CREATININE 0.7 mg/dL (0.5-1.5); MAGNESIUM 2.1 mg/dL (1.80-2.40); PHOSPHORUS 2.3 mg/dL (2.5-4.9); POTASSIUM 3.4 mmol/L (3.5-5.1)
[2018-01-01] MEDS: IPRATROPIUM/ALBUTEROL SULFATE 3 ML SOLUTION IH SCH ×2 (07:08→18:28)
[2018-01-01 07:30] VITALS: BP 110/61
[2018-01-01 11:00] VITALS: BP 124/63
[2018-01-01] MEDS: METOCLOPRAMIDE 10 MG/2 ML VIAL IVP SCH ×2 (11:22→20:42)
[2018-01-01] MEDS: FAMOTIDINE/PF 20 MG/2 ML VIAL IV SCH ×2 (11:22→20:42)
[2018-01-01] MEDS: ONDANSETRON HCL MDV 20ML 2 MG/ML VIAL IVP PRN (11:23)
[2018-01-01] MEDS: LORAZEPAM 2 MG/ML 1 ML VIAL IM PRN (11:24)
[2018-01-01] MEDS ORDERED: VANCOMYCIN PROTOCOL PER PHARMACY IV SCH (18:15)
[2018-01-01 20:00] VITALS: BP 119/77
[2018-01-01] MEDS ORDERED: VANCOMYCIN 1.75 GM in SODIUM CHLORIDE 0.9% 250 ML IV ONE (20:00)
[2018-01-01 23:46] VITALS: BP_SYST 113; BP_SYST 117; BP_DIAS 64; BP_DIAS 69
[2018-01-02] MEDS: METRONIDAZOLE 500MG/100ML BAG 100 ML IV SCH ×4 (00:03→18:16)
[2018-01-02] MEDS: HYDROMORPHONE 1 MG/1 ML AMP IVP PRN ×2 (00:43→22:26)
[2018-01-02] MEDS: HEPARIN SODIUM 5000UNIT/ML 1ML VIAL SQ SCH ×2 (02:11→14:00)
[2018-01-02 03:51] VITALS: BP 107/63
[2018-01-02] MEDS: VANCOMYCIN 1.25 GM in SODIUM CHLORIDE 0.9% 250 ML IV SCH ×2 (03:59→13:31)
[2018-01-02 04:32] LABS: HEMATOCRIT 28.6 % (42-54); MEAN CORPUSCULAR HEMOGLOBIN 28.5 pg (27.0-33.0); MEAN CORPUSCULAR HGB CONC 34.6 g/dL (32.0-36.0); MEAN CORPUSCULAR VOLUME 82.1 fL (79-99); NUCLEATED RED BLOOD CELLS 0.1 % (0.0-0.19); PLATELET COUNT (AUTO) 151 K/uL (130-400); RED BLOOD CELL COUNT(AUTO) 3.48 MIL/uL (4.50-6.20); RED CELL DISTRIBUTION WIDTH 17.1 % (11.0-15.5); WHITE BLOOD COUNT (AUTO) 6.8 K/uL (4.8-10.8)
[2018-01-02 05:09] LABS: CREATININE 0.6 mg/dL (0.5-1.5); POTASSIUM 3.1 mmol/L (3.5-5.1)
[2018-01-02] MEDS: CEFTAZIDIME PENTAHYDRATE 1 GM/VIAL IVP SCH ×3 (05:58→22:14)
[2018-01-02] MEDS: INSULIN HUMULIN R 100 UNIT/ML 3ML SQ SCH ×4 (06:00→17:31)
[2018-01-02] MEDS: IPRATROPIUM/ALBUTEROL SULFATE 3 ML SOLUTION IH SCH ×2 (07:32→18:13)
[2018-01-02 09:26] VITALS: BP 92/48
[2018-01-02] MEDS: METOCLOPRAMIDE 10 MG/2 ML VIAL IVP SCH ×2 (10:37→21:21)
[2018-01-02] MEDS: DEXTROSE 5 %-0.45 % NACL 1,000 ML IV SCH ×2 (10:37→17:45)
[2018-01-02] MEDS: FAMOTIDINE/PF 20 MG/2 ML VIAL IV SCH ×2 (10:37→21:21)
[2018-01-02] MEDS: LIDOCAINE HCL-MPF 1% 2ML VIAL IVP PRN ×2 (10:38→21:25)
[2018-01-02] MEDS: POTASSIUM CHLORIDE 20MEQ/100ML 100 ML IV PRN ×2 (10:38→21:25)
[2018-01-02] MEDS ORDERED: COMPOUND IV REFRIGERATED 1 EACH IVSOLN MISC PRN (11:30)
[2018-01-02 12:56] VITALS: BP 118/73
[2018-01-02] MEDS ORDERED: DIATR MEGLU/DIATRIZOATE SODIUM 30 ML BOTTLE ONE (13:46)
[2018-01-02 14:40] LABS: INR 1.58 (0.85-1.15); PARTIAL THROMBOPLASTIN TIME 49.2 SEC (26.3-35.5); PROTHROMBIN TIME 16.4 SEC (9.6-11.6)
[2018-01-02 16:42] VITALS: BP 138/83
[2018-01-02] MEDS ORDERED: PHARMACY COMMUNICATION MISC SCH (16:45)
[2018-01-02 20:12] VITALS: BP 108/67
[2018-01-02] MEDS ORDERED: CLINIMIX E 4.25%-5% SOLUTION 2,000 ML IV ONE (21:00)
[2018-01-02] MEDS: DEXTROSE 10%-WATER 1,000 ML IV SCH (21:00)
[2018-01-03] MEDS: INSULIN HUMULIN R 100 UNIT/ML 3ML SQ SCH
[2018-01-03] MEDS: METRONIDAZOLE 500MG/100ML BAG 100 ML IV SCH ×4 (00:01→19:50)
[2018-01-03 00:12] VITALS: BP 121/77
[2018-01-03] MEDS: DEXTROSE 5 %-0.45 % NACL 1,000 ML IV SCH ×3 (01:27→20:30)
[2018-01-03] MEDS: HEPARIN SODIUM 5000UNIT/ML 1ML VIAL SQ SCH ×2 (01:50→15:30)
[2018-01-03] MEDS: VANCOMYCIN 1GM+NS 250ML 250 ML IV SCH ×3 (01:51→20:44)
[2018-01-03 04:12] VITALS: BP 120/77
[2018-01-03 04:59] LABS: CREATININE 0.6 mg/dL (0.5-1.5); MAGNESIUM 1.9 mg/dL (1.80-2.40); POTASSIUM 3.1 mmol/L (3.5-5.1)
[2018-01-03] MEDS: CEFTAZIDIME PENTAHYDRATE 1 GM/VIAL IVP SCH ×2 (05:54→15:00)
[2018-01-03] MEDS: IPRATROPIUM/ALBUTEROL SULFATE 3 ML SOLUTION IH SCH ×2 (06:26→18:58)
[2018-01-03 08:19] VITALS: BP 116/69
[2018-01-03] MEDS: DEXTROSE 10%-WATER 1,000 ML IV SCH (09:03)
[2018-01-03] MEDS ORDERED: LIDOCAINE HCL-MPF 1% 2ML VIAL IVP PRN (10:15)
[2018-01-03] MEDS ORDERED: POTASSIUM CHLORIDE 20MEQ/100ML 100 ML IV PRN (10:15)
[2018-01-03] MEDS ORDERED: POTASSIUM CHLORIDE 10% ELIXIR 20 MEQ/15 ML UDCUP PO PRN (10:15)
[2018-01-03] MEDS: METOCLOPRAMIDE 10 MG/2 ML VIAL IVP SCH ×2 (10:30→20:28)
[2018-01-03] MEDS: FAMOTIDINE/PF 20 MG/2 ML VIAL IV SCH ×2 (10:30→20:29)
[2018-01-03] MEDS: LIDOCAINE HCL-MPF 1% 2ML VIAL IVP PRN ×2 (11:13→13:55)
[2018-01-03] MEDS: POTASSIUM CHLORIDE 20MEQ/100ML 100 ML IV PRN ×2 (11:14→13:56)
[2018-01-03 11:42] VITALS: BP 134/77
[2018-01-03 16:00] VITALS: BP 110/71
[2018-01-03] MEDS ORDERED: LACTATED RINGERS 1000ML 1,000 ML IV SCH (17:00)
[2018-01-03 19:00] VITALS: BP 146/78
[2018-01-03] MEDS: FAT EMULSIONS 20% 250ML 250 ML IV SCH (20:30)
[2018-01-04] VITALS (25 sets, daily range): BP systolic 114–162; BP diastolic 69–95
[2018-01-04] MEDS: CEFTAZIDIME PENTAHYDRATE 1 GM/VIAL IVP SCH ×4 (00:15→20:57)
[2018-01-04] MEDS: METRONIDAZOLE 500MG/100ML BAG 100 ML IV SCH ×5 (00:15→23:27)
[2018-01-04] MEDS: INSULIN HUMULIN R 100 UNIT/ML 3ML SQ SCH ×7 (00:19→18:00)
[2018-01-04] MEDS: HEPARIN SODIUM 5000UNIT/ML 1ML VIAL SQ SCH ×2 (02:19→14:00)
[2018-01-04] MEDS: VANCOMYCIN 1GM+NS 250ML 250 ML IV SCH ×4 (02:42→23:27)
[2018-01-04 04:54] LABS: HEMATOCRIT 28.1 % (42-54); MEAN CORPUSCULAR HEMOGLOBIN 29.2 pg (27.0-33.0); MEAN CORPUSCULAR HGB CONC 35.6 g/dL (32.0-36.0); PLATELET COUNT (AUTO) 177 K/uL (130-400); RED BLOOD CELL COUNT(AUTO) 3.42 MIL/uL (4.50-6.20); RED CELL DISTRIBUTION WIDTH 17.4 % (11.0-15.5)
[2018-01-04 05:13] LABS: CREATININE 0.5 mg/dL (0.5-1.5); POTASSIUM 3.1 mmol/L (3.5-5.1)
[2018-01-04] MEDS: IPRATROPIUM/ALBUTEROL SULFATE 3 ML SOLUTION IH SCH ×2 (07:01→18:54)
[2018-01-04] MEDS: LIDOCAINE HCL-MPF 1% 2ML VIAL IVP PRN ×2 (07:17→20:39)
[2018-01-04] MEDS: POTASSIUM CHLORIDE 20MEQ/100ML 100 ML IV PRN ×2 (07:17→20:39)
[2018-01-04] MEDS: FAMOTIDINE/PF 20 MG/2 ML VIAL IV SCH ×2 (09:45→20:38)
[2018-01-04] MEDS: METOCLOPRAMIDE 10 MG/2 ML VIAL IVP SCH ×2 (09:45→21:00)
[2018-01-04] MEDS: DEXTROSE 5 %-0.45 % NACL 1,000 ML IV SCH (14:01)
[2018-01-04] MEDS ORDERED: GLYCOPYRROLATE 0.2 MG/ML 5 ML VIAL ONE (14:43)
[2018-01-04] MEDS ORDERED: LIDOCAINE PF 2% 5ML ABBOJECT ONE (14:43)
[2018-01-04] MEDS ORDERED: MIDAZOLAM HCL 1 MG/ML 2ML VIAL ONE (14:43)
[2018-01-04] MEDS ORDERED: FENTANYL CITRATE PF 50 MCG/1 ML 2ML VIAL ONE ×6 (14:43→17:31)
[2018-01-04] MEDS ORDERED: DEXAMETHASONE SOD PHOSPHATE 10MG/ML 1ML VIAL ONE (14:43)
[2018-01-04] MEDS ORDERED: PROPOFOL 10 MG/ML 20ML VIAL IV ONE (14:43)
[2018-01-04] MEDS ORDERED: NEOSTIGMINE 5MG/5ML SYR IV ONE (14:43)
[2018-01-04] MEDS ORDERED: EPHEDRINE SULFATE 50 MG/ML AMPULE ONE (15:00)
[2018-01-04] MEDS ORDERED: ESMOLOL HCL 10 MG/ML 10 ML VIAL ONE (15:44)
[2018-01-04] MEDS ORDERED: MEPERIDINE-PF 50 MG/ML SYG ONE ×2 (17:10→17:18)
[2018-01-04] MEDS: LACTATED RINGERS 1000ML 1,000 ML IV SCH (20:38)
[2018-01-04] MEDS ORDERED: LORAZEPAM 2 MG/ML 1 ML VIAL ONE (20:55)
[2018-01-04] MEDS ORDERED: LORAZEPAM 2 MG/ML 1 ML VIAL IM PRN (21:30)
[2018-01-04] MEDS: CLINIMIX E 4.25%-5% SOLUTION 2,000 ML IV SCH (22:16)
[2018-01-05] MEDS: HEPARIN SODIUM 5000UNIT/ML 1ML VIAL SQ SCH ×2 (02:35→14:37)
[2018-01-05 04:00] VITALS: BP 154/95
[2018-01-05] MEDS: METRONIDAZOLE 500MG/100ML BAG 100 ML IV SCH ×3 (04:58→19:53)
[2018-01-05] MEDS: CEFTAZIDIME PENTAHYDRATE 1 GM/VIAL IVP SCH ×3 (04:58→21:58)
[2018-01-05 04:59] LABS: CREATININE 0.7 mg/dL (0.5-1.5); MAGNESIUM 1.9 mg/dL (1.80-2.40); POTASSIUM 4.6 mmol/L (3.5-5.1)
[2018-01-05] MEDS ORDERED: PHARMACY COMMUNICATION MISC SCH ×2 (05:45→14:30)
[2018-01-05] MEDS: INSULIN HUMULIN R 100 UNIT/ML 3ML SQ SCH ×4 (06:00→18:00)
[2018-01-05] MEDS: IPRATROPIUM/ALBUTEROL SULFATE 3 ML SOLUTION IH SCH ×2 (06:17→18:26)
[2018-01-05 08:39] VITALS: BP 143/73
[2018-01-05] MEDS ORDERED: CEFTRIAXONE 1GM/D5W 50ML 50 ML IV SCH (09:00)
[2018-01-05] MEDS: FAMOTIDINE/PF 20 MG/2 ML VIAL IV SCH ×2 (09:32→20:06)
[2018-01-05] MEDS: METOCLOPRAMIDE 10 MG/2 ML VIAL IVP SCH ×2 (09:33→20:06)
[2018-01-05] MEDS: FAT EMULSIONS 20% 250ML 250 ML IV SCH (09:35)
[2018-01-05] MEDS: VANCOMYCIN 1GM+NS 250ML 250 ML IV SCH (09:43)
[2018-01-05 12:52] VITALS: BP 143/88
[2018-01-05] MEDS: MAGNESIUM 2GM PREMIX 50ML 50 ML IV PRN (14:44)
[2018-01-05 17:11] VITALS: BP 134/79
[2018-01-05 19:31] VITALS: BP 141/87
[2018-01-05] MEDS: VANCOMYCIN 1.75 GM in SODIUM CHLORIDE 0.9% 250 ML IV SCH (20:06)
[2018-01-05] MEDS: CLINIMIX E 4.25%-5% SOLUTION 2,000 ML IV SCH (20:12)
[2018-01-05] MEDS: HYDROMORPHONE PCA 10 MG/50 ML 50 ML IV PRN (21:45)
[2018-01-05 23:32] VITALS: BP 127/78
[2018-01-06] MEDS: METRONIDAZOLE 500MG/100ML BAG 100 ML IV SCH ×5 (00:27→23:33)
[2018-01-06] MEDS: HEPARIN SODIUM 5000UNIT/ML 1ML VIAL SQ SCH ×3 (03:18→22:40)
[2018-01-06 03:37] VITALS: BP 155/83
[2018-01-06 05:01] LABS: HEMATOCRIT 25.4 % (42-54); MEAN CORPUSCULAR HEMOGLOBIN 28.9 pg (27.0-33.0); MEAN CORPUSCULAR HGB CONC 35.1 g/dL (32.0-36.0); MEAN CORPUSCULAR VOLUME 82.4 fL (79-99); PLATELET COUNT (AUTO) 194 K/uL (130-400); RED BLOOD CELL COUNT(AUTO) 3.08 MIL/uL (4.50-6.20); RED CELL DISTRIBUTION WIDTH 17.2 % (11.0-15.5); WHITE BLOOD COUNT (AUTO) 10.3 K/uL (4.8-10.8)
[2018-01-06 05:21] LABS: ALBUMIN 1.1 g/dL (3.5-5.0); BILIRUBIN,TOTAL 0.5 mg/dL (0.2-1.0); CREATININE 0.5 mg/dL (0.5-1.5); PHOSPHORUS 1.9 mg/dL (2.5-4.9); POTASSIUM 3.7 mmol/L (3.5-5.1)
[2018-01-06] MEDS: CEFTAZIDIME PENTAHYDRATE 1 GM/VIAL IVP SCH ×3 (05:50→22:36)
[2018-01-06] MEDS: INSULIN HUMULIN R 100 UNIT/ML 3ML SQ SCH ×5 (05:51→23:33)
[2018-01-06] MEDS: IPRATROPIUM/ALBUTEROL SULFATE 3 ML SOLUTION IH SCH ×2 (06:49→19:26)
[2018-01-06] MEDS: VANCOMYCIN 1.75 GM in SODIUM CHLORIDE 0.9% 250 ML IV SCH ×2 (07:53→20:02)
[2018-01-06] MEDS: METOCLOPRAMIDE 10 MG/2 ML VIAL IVP SCH ×2 (07:54→20:02)
[2018-01-06] MEDS: FAMOTIDINE/PF 20 MG/2 ML VIAL IV SCH ×2 (07:54→20:02)
[2018-01-06 08:00] VITALS: BP 182/120
[2018-01-06] MEDS ORDERED: POTASSIUM PHOS 15 mMOL+NS250ML 250 ML IV SCH (09:30)
[2018-01-06] MEDS ORDERED: LACTATED RINGERS 1000ML IV SCH (09:45)
[2018-01-06] MEDS ORDERED: LACTULOSE 20 GM/30 ML UDCUP PO SCH (09:45)
[2018-01-06] MEDS ORDERED: ACETAMINOPHEN 325 MG TAB PO PRN (09:45)
[2018-01-06] MEDS ORDERED: MAGNESIUM HYDROXIDE 30 ML/UDCUP PO SCH (09:45)
[2018-01-06] MEDS ORDERED: LACTATED RINGERS 1000ML 1,000 ML IV SCH (10:00)
[2018-01-06 11:00] VITALS: BP 133/73
[2018-01-06] MEDS: TRAMADOL HCL 50 MG TABLET PO PRN ×2 (12:35→18:12)
[2018-01-06 15:56] VITALS: BP 132/74
[2018-01-06 19:54] VITALS: BP 122/62
[2018-01-06] MEDS: DOCUSATE SODIUM 100 MG CAP PO SCH (20:02)
[2018-01-06] MEDS: CLINIMIX E 4.25%-5% SOLUTION 2,000 ML IV SCH (20:05)
[2018-01-06 23:42] VITALS: BP 132/80
[2018-01-07 04:00] VITALS: BP 130/81
[2018-01-07] MEDS: INSULIN HUMULIN R 100 UNIT/ML 3ML SQ SCH ×4 (06:00→23:08)
[2018-01-07] MEDS: CEFTAZIDIME PENTAHYDRATE 1 GM/VIAL IVP SCH ×3 (06:08→23:06)
[2018-01-07] MEDS: METRONIDAZOLE 500MG/100ML BAG 100 ML IV SCH ×4 (06:08→23:06)
[2018-01-07] MEDS: IPRATROPIUM/ALBUTEROL SULFATE 3 ML SOLUTION IH SCH ×3 (06:11→23:08)
[2018-01-07] MEDS: HEPARIN SODIUM 5000UNIT/ML 1ML VIAL SQ SCH ×3 (06:16→23:07)
[2018-01-07 06:58] LABS: BASOPHILS % (AUTO) 1.5 % (0.0-5.0); EOSINOPHILS % (AUTO) 1.2 % (0.0-8.0); HEMATOCRIT 24.2 % (42-54); LYMPHOCYTES % (AUTO) 9.2 % (21.0-51.0); MEAN CORPUSCULAR HGB CONC 33.9 g/dL (32.0-36.0); MEAN CORPUSCULAR VOLUME 82.6 fL (79-99); MONOCYTES % (AUTO) 10.5 % (3.0-13.0); NEUTROPHILS % (AUTO) 77.6 % (40.0-77.0); PLATELET COUNT (AUTO) 224 K/uL (130-400); RED BLOOD CELL COUNT(AUTO) 2.93 MIL/uL (4.50-6.20); RED CELL DISTRIBUTION WIDTH 17.7 % (11.0-15.5); WHITE BLOOD COUNT (AUTO) 8.6 K/uL (4.8-10.8)
[2018-01-07 07:12] LABS: CREATININE 0.5 mg/dL (0.5-1.5); PHOSPHORUS 2.4 mg/dL (2.5-4.9); POTASSIUM 3.8 mmol/L (3.5-5.1)
[2018-01-07 08:00] VITALS: BP 152/78
[2018-01-07] MEDS: TRAMADOL HCL 50 MG TABLET PO PRN ×2 (08:03→15:55)
[2018-01-07] MEDS: DOCUSATE SODIUM 100 MG CAP PO SCH ×2 (08:03→20:01)
[2018-01-07] MEDS: FAMOTIDINE/PF 20 MG/2 ML VIAL IV SCH ×2 (08:03→20:01)
[2018-01-07] MEDS: VANCOMYCIN 1.75 GM in SODIUM CHLORIDE 0.9% 250 ML IV SCH ×2 (08:28→20:01)
[2018-01-07] MEDS: METOCLOPRAMIDE 10 MG/2 ML VIAL IVP SCH ×2 (08:28→20:01)
[2018-01-07] MEDS: LACTATED RINGERS 1000ML 1,000 ML IV SCH (08:30)
[2018-01-07] MEDS ORDERED: POTASSIUM PHOS 15 mMOL+NS250ML 250 ML IV SCH (10:30)
[2018-01-07 11:00] VITALS: BP 125/76
[2018-01-07 16:00] VITALS: BP 176/95
[2018-01-07] MEDS: ACETYLCYSTEINE 10% 100MG/ML 4ML VIAL IH SCH ×2 (18:34→23:08)
[2018-01-07 19:36] VITALS: BP 139/85
[2018-01-07] MEDS: CLINIMIX E 4.25%-5% SOLUTION 2,000 ML IV SCH (20:07)
[2018-01-07 23:54] VITALS: BP 144/77
[2018-01-08] MEDS: TRAMADOL HCL 50 MG TABLET PO PRN (00:46)
[2018-01-08] MEDS: LORAZEPAM 2 MG/ML 1 ML VIAL IM PRN ×2 (00:47→18:49)
[2018-01-08 04:00] VITALS: BP 144/68
[2018-01-08] MEDS: CEFTAZIDIME PENTAHYDRATE 1 GM/VIAL IVP SCH ×3 (05:32→21:04)
[2018-01-08] MEDS: METRONIDAZOLE 500MG/100ML BAG 100 ML IV SCH ×3 (05:32→17:17)
[2018-01-08] MEDS: HEPARIN SODIUM 5000UNIT/ML 1ML VIAL SQ SCH ×3 (05:32→21:17)
[2018-01-08] MEDS: INSULIN HUMULIN R 100 UNIT/ML 3ML SQ SCH ×3 (05:48→18:00)
[2018-01-08] MEDS: IPRATROPIUM/ALBUTEROL SULFATE 3 ML SOLUTION IH SCH ×3 (06:44→18:15)
[2018-01-08] MEDS: ACETYLCYSTEINE 10% 100MG/ML 4ML VIAL IH SCH ×3 (06:44→18:00)
[2018-01-08 07:04] LABS: BASOPHILS % (AUTO) 1.2 % (0.0-5.0); EOSINOPHILS % (AUTO) 1.8 % (0.0-8.0); LYMPHOCYTES % (AUTO) 10.1 % (21.0-51.0); MEAN CORPUSCULAR HEMOGLOBIN 28.5 pg (27.0-33.0); MEAN CORPUSCULAR HGB CONC 34.9 g/dL (32.0-36.0); MEAN CORPUSCULAR VOLUME 81.7 fL (79-99); MONOCYTES % (AUTO) 12.5 % (3.0-13.0); NEUTROPHILS % (AUTO) 74.4 % (40.0-77.0); PLATELET COUNT (AUTO) 240 K/uL (130-400); RED BLOOD CELL COUNT(AUTO) 2.82 MIL/uL (4.50-6.20); RED CELL DISTRIBUTION WIDTH 17.3 % (11.0-15.5); WHITE BLOOD COUNT (AUTO) 7.2 K/uL (4.8-10.8)
[2018-01-08 08:00] VITALS: BP 152/76
[2018-01-08 08:14] LABS: ABG HCO3 22.7 mmol/L (21.0-28.0); ABG OXYGEN SATURATION 96.5 % (95.0-99.0); ABG PCO2 32 mmHg (35-48)
[2018-01-08 08:22] LABS: CREATININE 0.5 mg/dL (0.5-1.5); PHOSPHORUS 2.7 mg/dL (2.5-4.9); POTASSIUM 3.9 mmol/L (3.5-5.1)
[2018-01-08] MEDS: METOCLOPRAMIDE 10 MG/2 ML VIAL IVP SCH (09:00)
[2018-01-08] MEDS: DOCUSATE SODIUM 100 MG CAP PO SCH ×2 (10:02→21:03)
[2018-01-08] MEDS: FAMOTIDINE/PF 20 MG/2 ML VIAL IV SCH ×2 (10:02→21:03)
[2018-01-08] MEDS: VANCOMYCIN 2 GM in SODIUM CHLORIDE 0.9% 500ML 500 ML IV SCH ×2 (10:02→21:04)
[2018-01-08 11:00] VITALS: BP 161/98
[2018-01-08] MEDS: FAT EMULSIONS 20% 250ML 250 ML IV SCH (11:55)
[2018-01-08 16:00] VITALS: BP 163/87
[2018-01-08] MEDS: METOCLOPRAMIDE 10 MG TABLET PO SCH (17:15)
[2018-01-08] MEDS: CLINIMIX E 4.25%-5% SOLUTION 2,000 ML IV SCH (17:16)
[2018-01-08 19:58] VITALS: BP 156/75
[2018-01-08 23:18] VITALS: BP 153/79
[2018-01-09] MEDS: METRONIDAZOLE 500MG/100ML BAG 100 ML IV SCH ×4 (00:23→18:04)
[2018-01-09] MEDS: LACTATED RINGERS 1000ML 1,000 ML IV SCH (00:24)
[2018-01-09] MEDS: IPRATROPIUM/ALBUTEROL SULFATE 3 ML SOLUTION IH SCH ×5 (00:44→23:35)
[2018-01-09] MEDS: TRAMADOL HCL 50 MG TABLET PO PRN ×2 (03:32→10:21)
[2018-01-09 04:00] VITALS: BP 147/94
[2018-01-09 05:34] LABS: BASOPHILS % (AUTO) 0.5 % (0.0-5.0); EOSINOPHILS % (AUTO) 2.5 % (0.0-8.0); HEMATOCRIT 24.1 % (42-54); LYMPHOCYTES % (AUTO) 10.6 % (21.0-51.0); MEAN CORPUSCULAR HEMOGLOBIN 28.1 pg (27.0-33.0); MEAN CORPUSCULAR HGB CONC 34.2 g/dL (32.0-36.0); MONOCYTES % (AUTO) 12.7 % (3.0-13.0); NEUTROPHILS % (AUTO) 73.7 % (40.0-77.0); NUCLEATED RED BLOOD CELLS 0.1 % (0.0-0.19); PLATELET COUNT (AUTO) 269 K/uL (130-400); RED BLOOD CELL COUNT(AUTO) 2.94 MIL/uL (4.50-6.20); RED CELL DISTRIBUTION WIDTH 16.9 % (11.0-15.5); WHITE BLOOD COUNT (AUTO) 7.4 K/uL (4.8-10.8)
[2018-01-09] MEDS: CEFTAZIDIME PENTAHYDRATE 1 GM/VIAL IVP SCH ×3 (05:38→21:40)
[2018-01-09] MEDS: HEPARIN SODIUM 5000UNIT/ML 1ML VIAL SQ SCH ×3 (05:39→21:49)
[2018-01-09 05:57] LABS: CREATININE 0.5 mg/dL (0.5-1.5); POTASSIUM 3.6 mmol/L (3.5-5.1)
[2018-01-09] MEDS: INSULIN HUMULIN R 100 UNIT/ML 3ML SQ SCH ×4 (05:58→18:00)
[2018-01-09] MEDS: ACETYLCYSTEINE 10% 100MG/ML 4ML VIAL IH SCH ×3 (06:00→18:00)
[2018-01-09 08:00] VITALS: BP 136/82
[2018-01-09] MEDS: FAMOTIDINE/PF 20 MG/2 ML VIAL IV SCH ×2 (10:04→21:40)
[2018-01-09] MEDS: DOCUSATE SODIUM 100 MG CAP PO SCH ×2 (10:04→21:40)
[2018-01-09] MEDS: METOCLOPRAMIDE 10 MG TABLET PO SCH ×3 (10:06→18:03)
[2018-01-09] MEDS: VANCOMYCIN 2 GM in SODIUM CHLORIDE 0.9% 500ML 500 ML IV SCH ×2 (10:16→21:39)
[2018-01-09 12:00] VITALS: BP 157/93
[2018-01-09 16:00] VITALS: BP 141/77
[2018-01-09 19:40] VITALS: BP 140/77
[2018-01-09] MEDS: POTASSIUM CHLORIDE 20 MEQ ERTAB PO PRN (21:40)
[2018-01-09] MEDS: LORAZEPAM 2 MG/ML 1 ML VIAL IM PRN (21:55)
[2018-01-09 23:25] VITALS: BP 131/92
[2018-01-10] MEDS: LACTATED RINGERS 1000ML 1,000 ML IV SCH (00:37)
[2018-01-10] MEDS: METRONIDAZOLE 500MG/100ML BAG 100 ML IV SCH ×4 (00:37→18:09)
[2018-01-10 03:45] VITALS: BP 161/87
[2018-01-10] MEDS: TRAMADOL HCL 50 MG TABLET PO PRN (03:58)
[2018-01-10] MEDS: CEFTAZIDIME PENTAHYDRATE 1 GM/VIAL IVP SCH ×3 (05:34→22:03)
[2018-01-10] MEDS: HEPARIN SODIUM 5000UNIT/ML 1ML VIAL SQ SCH ×3 (05:37→22:14)
[2018-01-10] MEDS: INSULIN HUMULIN R 100 UNIT/ML 3ML SQ SCH ×4 (06:00→21:00)
[2018-01-10] MEDS: IPRATROPIUM/ALBUTEROL SULFATE 3 ML SOLUTION IH SCH ×4 (06:14→23:28)
[2018-01-10 07:11] VITALS: BP 154/74
[2018-01-10 11:00] VITALS: BP 148/98
[2018-01-10] MEDS: VANCOMYCIN 2 GM in SODIUM CHLORIDE 0.9% 500ML 500 ML IV SCH ×2 (11:05→22:02)
[2018-01-10] MEDS: DOCUSATE SODIUM 100 MG CAP PO SCH ×2 (11:06→22:03)
[2018-01-10] MEDS: GABAPENTIN 100 MG CAPSULE PO SCH ×3 (11:06→22:02)
[2018-01-10] MEDS: METOCLOPRAMIDE 10 MG TABLET PO SCH ×3 (11:07→16:20)
[2018-01-10] MEDS: FAMOTIDINE/PF 20 MG/2 ML VIAL IV SCH ×2 (11:07→22:03)
[2018-01-10] MEDS: DILTIAZEM HCL 60 MG TABLET PO SCH ×2 (11:07→22:03)
[2018-01-10] MEDS: OLANZAPINE 5 MG TAB PO SCH (11:07)
[2018-01-10 15:00] VITALS: BP 131/77
[2018-01-10] MEDS: ACETYLCYSTEINE 10% 100MG/ML 4ML VIAL IH SCH ×2 (18:00→23:29)
[2018-01-10 19:30] VITALS: BP 148/99
[2018-01-10] MEDS ORDERED: TRAZODONE HCL 100 MG TABLET PO SCH (21:00)
[2018-01-10 23:30] VITALS: BP 131/82
[2018-01-11] MEDS: METRONIDAZOLE 500MG/100ML BAG 100 ML IV SCH ×4 (01:02→19:12)
[2018-01-11 03:50] VITALS: BP 145/90
[2018-01-11] MEDS: CEFTAZIDIME PENTAHYDRATE 1 GM/VIAL IVP SCH ×2 (05:45→13:55)
[2018-01-11] MEDS: ACETYLCYSTEINE 10% 100MG/ML 4ML VIAL IH SCH (06:00)
[2018-01-11 06:02] LABS: BASOPHILS % (AUTO) 1.1 % (0.0-5.0); EOSINOPHILS % (AUTO) 2.7 % (0.0-8.0); HEMATOCRIT 25.2 % (42-54); LYMPHOCYTES % (AUTO) 9.1 % (21.0-51.0); MEAN CORPUSCULAR HEMOGLOBIN 27.5 pg (27.0-33.0); MEAN CORPUSCULAR HGB CONC 33.7 g/dL (32.0-36.0); MEAN CORPUSCULAR VOLUME 81.7 fL (79-99); MONOCYTES % (AUTO) 12.2 % (3.0-13.0); NEUTROPHILS % (AUTO) 74.9 % (40.0-77.0); NUCLEATED RED BLOOD CELLS 0.1 % (0.0-0.19); PLATELET COUNT (AUTO) 258 K/uL (130-400); RED BLOOD CELL COUNT(AUTO) 3.08 MIL/uL (4.50-6.20); RED CELL DISTRIBUTION WIDTH 16.7 % (11.0-15.5); WHITE BLOOD COUNT (AUTO) 8.4 K/uL (4.8-10.8)
[2018-01-11] MEDS: HEPARIN SODIUM 5000UNIT/ML 1ML VIAL SQ SCH ×2 (06:05→13:53)
[2018-01-11 06:17] LABS: ALBUMIN 1.4 g/dL (3.5-5.0); BILIRUBIN,TOTAL 0.3 mg/dL (0.2-1.0); CREATININE 0.6 mg/dL (0.5-1.5); MAGNESIUM 1.8 mg/dL (1.80-2.40); PHOSPHORUS 2.9 mg/dL (2.5-4.9); POTASSIUM 3.2 mmol/L (3.5-5.1); TOTAL PROTEIN, SERUM 5.9 g/dL (6.0-8.3)
[2018-01-11] MEDS: INSULIN HUMULIN R 100 UNIT/ML 3ML SQ SCH ×3 (06:52→16:30)
[2018-01-11] MEDS: IPRATROPIUM/ALBUTEROL SULFATE 3 ML SOLUTION IH SCH ×3 (07:23→18:07)
[2018-01-11] MEDS: MAGNESIUM 2GM PREMIX 50ML 50 ML IV PRN (08:49)
[2018-01-11] MEDS: METOCLOPRAMIDE 10 MG TABLET PO SCH ×2 (08:50→12:00)
[2018-01-11] MEDS: OLANZAPINE 5 MG TAB PO SCH (08:50)
[2018-01-11] MEDS: DOCUSATE SODIUM 100 MG CAP PO SCH (08:50)
[2018-01-11] MEDS: FAMOTIDINE/PF 20 MG/2 ML VIAL IV SCH (08:51)
[2018-01-11] MEDS: GABAPENTIN 100 MG CAPSULE PO SCH ×2 (08:51→13:59)
[2018-01-11] MEDS: DILTIAZEM HCL 60 MG TABLET PO SCH (08:51)
[2018-01-11 08:53] VITALS: BP 144/75
[2018-01-11] MEDS: POTASSIUM CHLORIDE 20 MEQ ERTAB PO PRN ×2 (08:54→11:58)
[2018-01-11] MEDS: TRAMADOL HCL 50 MG TABLET PO PRN (09:05)
[2018-01-11] MEDS: VANCOMYCIN 2 GM in SODIUM CHLORIDE 0.9% 500ML 500 ML IV SCH (10:19)
[2018-01-11 12:00] VITALS: BP 153/99
[2018-01-11 16:00] VITALS: BP 138/81
== END 2018-01-11 19:55 | DRG 853 ==
LOC: EDH 22:08 → EDHIP 23:40 → 3DH 12-20 00:14 → 2CH 12-26 18:38 → 3DH 12-29 23:42
PROVIDERS: ADMIT Internal Medicine Nephrology; ATTEND Internal Medicine Nephrology
PROC: 0DBU0ZZ Excision of Omentum, Open Approach (ICD-10-PCS; principal; 2017-12-26 15:00)
PROC: 3E1M38Z Irrigation of Peritoneal Cavity using Irrigating Substance, Percutaneous Approach (ICD-10-PCS; 2018-01-04)
PROC: 0D1M0Z4 Bypass Descending Colon to Cutaneous, Open Approach (ICD-10-PCS; 2018-01-04 15:09)
PROC: 0DTG0ZZ Resection of Left Large Intestine, Open Approach (ICD-10-PCS; 2018-01-04 15:09)
PROC: 0WJF0ZZ Inspection of Abdominal Wall, Open Approach (ICD-10-PCS; 2018-01-04 15:09)
DX: A41.9 Sepsis, unspecified organism (principal); J96.01 Acute respiratory failure with hypoxia; E43 Unspecified severe protein-calorie malnutrition; R65.21 Severe sepsis with septic shock; K56.600 Partial intestinal obstruction, unspecified as to cause; K56.7 Ileus, unspecified; K57.32 Diverticulitis of large intestine without perforation or abscess without bleeding; I82.611 Acute embolism and thrombosis of superficial veins of right upper extremity; K57.20 Diverticulitis of large intestine with perforation and abscess without bleeding; L03.113 Cellulitis of right upper limb; T81.31XA Disruption of external operation (surgical) wound, not elsewhere classified, initial encounter; D69.6 Thrombocytopenia, unspecified; I11.0 Hypertensive heart disease with heart failure; I50.9 Heart failure, unspecified; E66.01 Morbid (severe) obesity due to excess calories; E11.9 Type 2 diabetes mellitus without complications; F41.9 Anxiety disorder, unspecified; J44.9 Chronic obstructive pulmonary disease, unspecified; D64.9 Anemia, unspecified; K43.9 Ventral hernia without obstruction or gangrene; E78.5 Hyperlipidemia, unspecified; E83.39 Other disorders of phosphorus metabolism; E87.6 Hypokalemia; F41.1 Generalized anxiety disorder; G47.33 Obstructive sleep apnea (adult) (pediatric); I80.8 Phlebitis and thrombophlebitis of other sites; K66.0 Peritoneal adhesions (postprocedural) (postinfection); Z74.01 Bed confinement status; Z79.82 Long term (current) use of aspirin; Z87.01 Personal history of pneumonia (recurrent); Z87.891 Personal history of nicotine dependence; Z91.19 Patient's noncompliance with other medical treatment and regimen; Z88.8 Allergy status to other drugs, medicaments and biological substances; Z68.34 Body mass index [BMI] 34.0-34.9, adult
CPT/HCPCS: 36415; 36600; 71045; 74018; 74021; 74176; 74178; 80048; 80053; 80076; 80202; 82150; 82550; 82553; 82803; 82948; 83605; 83690; 83735; 83874; 83880; 84100; 84132; 84484; 85025; 85027; 85610; 85730; 87070; 87076; 87077; 87186; 88302; 88305; 88307; 88309; 93005; 93970; 93971; 94640; 94664; 94667; 94668; 97039; A4218; A4344; A6250; C1894; C9113; J0330; J0360; J0500; J0696; J0713; J1100; J1170; J1200; J1644; J2001; J2060; J2175; J2250; J2270; J2405; J2543; J2550; J2704; J2710; J2765; J2795; J3010; J3230; J3370; J3475; J3480; J3490; J7030; J7040; J7042; J7070; J7120; J7608; Q9963; Q9967

== ENCOUNTER 2018-01-26 11:27 | Inpatient (IN) | payer OTHER ==
[~2018-01-26] VITALS: Ht 182.9 cm; Wt 94.2 kg
[~2018-01-26 11:27] MED LIST changes: +ALBU8.5H8 PUFF; -ALBU90AE IH; -ALPR0.255 PO; +BENZ-51 PO; -BENZ200C53 PO; -BUDE0.5A3 IH; -CODE10LI PO; +DILT120T PO; -DILT120T15 PO; -FAMO20TA8 PO; +GABA-529 PO; -INSLAN SQ; +INSU3INS3 SQ; +IPRA0.2S54 IH; +OLAN2.5T3 PO; +OMEP40CA37 PO; -POLY17PO3 PO; +TRAZ-187 PO; -TRAZ150T79 PO
[2018-01-26] MEDS ORDERED: SODIUM CHLORIDE 0.9% 1000ML 1,000 ML IV ONE (11:40)
[2018-01-26] MEDS ORDERED: ZOSYN 3.375GM+NS 50ML 50 ML IV ONE (11:41)
[2018-01-26 12:33] LABS: BASOPHILS % (AUTO) 0.9 % (0.0-5.0); EOSINOPHILS % (AUTO) 5.1 % (0.0-8.0); HEMATOCRIT 28.9 % (42-54); MEAN CORPUSCULAR HEMOGLOBIN 28.9 pg (27.0-33.0); MEAN CORPUSCULAR HGB CONC 33.9 g/dL (32.0-36.0); MEAN CORPUSCULAR VOLUME 85.4 fL (79-99); MONOCYTES % (AUTO) 10.9 % (3.0-13.0); NEUTROPHILS % (AUTO) 74.1 % (40.0-77.0); PLATELET COUNT (AUTO) 249 K/uL (130-400); RED BLOOD CELL COUNT(AUTO) 3.38 MIL/uL (4.50-6.20); RED CELL DISTRIBUTION WIDTH 19.8 % (11.0-15.5); WHITE BLOOD COUNT (AUTO) 8.7 K/uL (4.8-10.8)
[2018-01-26 12:43] LABS: CARBON DIOXIDE 26 mmol/L (21-32); CHLORIDE 104 mmol/L (101-111); CREATININE 0.8 mg/dL (0.5-1.5); GLOMERULAR FILTR. RATE CALC 108 mL/min (>60); GLUCOSE,RANDOM 144 mg/dL (70-105); POTASSIUM 3.5 mmol/L (3.5-5.1); SODIUM SERUM 135 mmol/L (136-145); UREA NITROGEN, BLOOD 10 mg/dL (7-18)
[2018-01-26 12:48] LABS: INR 1.12 (0.85-1.15); PARTIAL THROMBOPLASTIN TIME 35.7 SEC (26.3-35.5); PROTHROMBIN TIME 11.7 SEC (9.6-11.6)
[2018-01-26 13:13] LABS: ALANINE AMINOTRANSFERASE 8 U/L (12-78); ALBUMIN 3.3 g/dL (3.5-5.0); ASPARTATE AMINOTRANSFERASE 8 U/L (10-37); BILIRUBIN,TOTAL 0.6 mg/dL (0.2-1.0); CREATINE KINASE MB < 0.5 ng/mL (0.5-3.6); CREATINE KINASE, TOTAL 17 U/L (21-232); MYOGLOBIN 13 ng/mL (10-92); TOTAL PROTEIN, SERUM 7.5 g/dL (6.0-8.3); TROPONIN I < 0.04 ng/mL (0.00-0.06)
[2018-01-26 13:16] LABS: ABG BASE EXCESS -3.6 mmol/L (-2.0-3.0); ABG HCO3 20.5 mmol/L (21.0-28.0); ABG OXYGEN SATURATION 98.9 % (95.0-99.0); ABG PCO2 35 mmHg (35-48)
[2018-01-26] MEDS ORDERED: NOREPINEPHRINE BITARTRATE 1 MG/1 ML ML IV ONE (13:17)
[2018-01-26] MEDS ORDERED: SODIUM CHLORIDE 0.9% 100 ML IV ONE (13:18)
[2018-01-26] MEDS ORDERED: SODIUM CHLORIDE 0.9% 250 ML IV ONE (13:19)
[2018-01-26] MEDS ORDERED: EPINEPHRINE 1 MG/ML AMPULE ONE (13:19)
[2018-01-26] MEDS ORDERED: DIATR MEGLU/DIATRIZOATE SODIUM 30 ML BOTTLE ONE (14:09)
[2018-01-26] MEDS ORDERED: LEVOFLOXACIN 500 MG/D5W 100 ML 100 ML ONE (14:55)
[2018-01-26] MEDS ORDERED: IOPAMIDOL-370 75 ML VIAL IV ONE (15:32)
[2018-01-26] MEDS ORDERED: IOPAMIDOL-370 100 ML VIAL IV ONE (15:52)
[2018-01-26] MEDS ORDERED: ACETAMINOPHEN 650 MG SUPPOSITORY RC ONE (16:46)
[2018-01-26] MEDS ORDERED: METRONIDAZOLE 500MG/100ML BAG 100 ML ONE (17:40)
[2018-01-26 21:01] VITALS: BP 114/69
[2018-01-26 23:51] VITALS: BP 121/64
[2018-01-27 01:44] LABS: APPEARANCE,URINE Clear (CLEAR); BILIRUBIN,URINE Small (NEGATIVE); COLOR,URINE Dark Yellow (YELLOW); GLUCOSE, URINE (UA) Negative (NEGATIVE); KETONES,URINE Trace mg/dL (NEGATIVE); LEUKOCYTE ESTERASE ,URINE Trace (NEGATIVE); NITRATE,URINE Positive (NEGATIVE); OCCULT BLOOD,URINE Negative (NEGATIVE); PH,URINE 5.5 (5.0-8.0); PROTEIN,URINE POS 1+ (NEGATIVE)
[2018-01-27 01:53] LABS: BACTERIA,URINE Few /HPF (None Seen)
[2018-01-27] MEDS ORDERED: MORPHINE SULFATE 2 MG/ML 1ML SYG IVP PRN (02:00)
[2018-01-27] MEDS ORDERED: ACETAMINOPHEN 650 MG SUPPOSITORY RC PRN (02:00)
[2018-01-27] MEDS ORDERED: METRONIDAZOLE 500MG/100ML BAG 100 ML IV SCH (02:00)
[2018-01-27] MEDS ORDERED: METRONIDAZOLE 500MG/100ML BAG 100 ML ONE (02:05)
[2018-01-27] MEDS: SODIUM CHLORIDE 0.9% 1000ML 1,000 ML IV SCH ×2 (02:13→15:20)
[2018-01-27] MEDS: METRONIDAZOLE 500MG/100ML BAG 100 ML IV SCH ×3 (02:14→17:35)
[2018-01-27 03:56] VITALS: BP 124/80
[2018-01-27 05:19] LABS: HEMATOCRIT 30.3 % (42-54); MEAN CORPUSCULAR HEMOGLOBIN 28.8 pg (27.0-33.0); MEAN CORPUSCULAR HGB CONC 33.6 g/dL (32.0-36.0); MEAN CORPUSCULAR VOLUME 85.6 fL (79-99); NUCLEATED RED BLOOD CELLS 0.1 % (0.0-0.19); PLATELET COUNT (AUTO) 235 K/uL (130-400); RED BLOOD CELL COUNT(AUTO) 3.54 MIL/uL (4.50-6.20); RED CELL DISTRIBUTION WIDTH 19.7 % (11.0-15.5); WHITE BLOOD COUNT (AUTO) 14.3 K/uL (4.8-10.8)
[2018-01-27 05:32] LABS: ALANINE AMINOTRANSFERASE 11 U/L (12-78); ALBUMIN 2.8 g/dL (3.5-5.0); ASPARTATE AMINOTRANSFERASE 9 U/L (10-37); BILIRUBIN,TOTAL 0.8 mg/dL (0.2-1.0); CARBON DIOXIDE 23 mmol/L (21-32); CHLORIDE 102 mmol/L (101-111); CREATININE 1.2 mg/dL (0.5-1.5); GLOMERULAR FILTR. RATE CALC 68 mL/min (>60); GLUCOSE,RANDOM 136 mg/dL (70-105); POTASSIUM 3.8 mmol/L (3.5-5.1); SODIUM SERUM 134 mmol/L (136-145); TOTAL PROTEIN, SERUM 6.8 g/dL (6.0-8.3); UREA NITROGEN, BLOOD 19 mg/dL (7-18)
[2018-01-27 05:40] LABS: AMMONIA < 3 umol/L (11-32)
[2018-01-27 07:00] VITALS: BP 168/73
[2018-01-27] MEDS ORDERED: HYDRALAZINE HCL 20 MG/ML VIAL IV PRN (10:00)
[2018-01-27 11:00] VITALS: BP 162/104
[2018-01-27] MEDS: INSULIN HUMULIN R 100 UNIT/ML 3ML SQ SCH ×3 (11:30→21:00)
[2018-01-27] MEDS: LACTATED RINGERS 1000ML 1,000 ML IV SCH ×2 (12:21→17:35)
[2018-01-27] MEDS ORDERED: VANCOMYCIN PROTOCOL PER PHARMACY IV SCH (12:45)
[2018-01-27] MEDS ORDERED: MEROPENEM 1GM IVPB PREMIXED 1 GM IV SCH (12:45)
[2018-01-27] MEDS ORDERED: COMPOUND IV REFRIGERATED 1 EACH IVSOLN MISC PRN (13:30)
[2018-01-27] MEDS ORDERED: VANCOMYCIN 1.5 GM in N.S. 250 ML IV SCH (13:30)
[2018-01-27] MEDS ORDERED: VANCOMYCIN 1.25 GM in SODIUM CHLORIDE 0.9% 250 ML IV SCH (14:17)
[2018-01-27] MEDS: MEROPENEM 1 GM VIAL IVP SCH ×2 (14:51→21:09)
[2018-01-27 16:00] VITALS: BP 143/75
[2018-01-27] MEDS: LEVOFLOXACIN 500 MG/D5W 100 ML 100 ML IV SCH (16:11)
[2018-01-27 20:41] VITALS: BP 150/79
[2018-01-28] MEDS ORDERED: DEXTROSE 50%-WATER 50 ML DISP.SYRIN IV PRN
[2018-01-28] MEDS ORDERED: GLUCAGON 1MG KIT 1 MG ML IM PRN
[2018-01-28 00:40] VITALS: BP 135/94
[2018-01-28] MEDS: VANCOMYCIN 1.25 GM in N.S. 250 ML IV SCH ×2 (02:11→14:44)
[2018-01-28] MEDS: METRONIDAZOLE 500MG/100ML BAG 100 ML IV SCH ×3 (02:11→17:46)
[2018-01-28] MEDS: LACTATED RINGERS 1000ML 1,000 ML IV SCH ×2 (02:43→14:42)
[2018-01-28] MEDS: INSULIN HUMULIN R 100 UNIT/ML 3ML SQ SCH ×4 (06:00→17:30)
[2018-01-28 06:30] VITALS: BP 138/82
[2018-01-28 07:00] VITALS: BP 143/88
[2018-01-28] MEDS: MEROPENEM 1 GM VIAL IVP SCH ×3 (07:38→22:41)
[2018-01-28 11:00] VITALS: BP 136/55
[2018-01-28] MEDS: LEVOFLOXACIN 500 MG/D5W 100 ML 100 ML IV SCH (14:44)
[2018-01-28 16:00] VITALS: BP 133/81
[2018-01-28 20:12] VITALS: BP 137/74
[2018-01-28] MEDS ORDERED: MORPHINE SULFATE 4 MG/1ML SYG ONE (22:33)
[2018-01-29 00:33] VITALS: BP 145/79
[2018-01-29] MEDS: METRONIDAZOLE 500MG/100ML BAG 100 ML IV SCH ×3 (02:24→17:35)
[2018-01-29] MEDS: LACTATED RINGERS 1000ML 1,000 ML IV SCH ×3 (02:28→17:35)
[2018-01-29] MEDS: VANCOMYCIN 1.25 GM in N.S. 250 ML IV SCH (03:47)
[2018-01-29 04:17] VITALS: BP 133/66
[2018-01-29] MEDS: INSULIN HUMULIN R 100 UNIT/ML 3ML SQ SCH ×5 (06:00→21:00)
[2018-01-29] MEDS: MEROPENEM 1 GM VIAL IVP SCH ×3 (06:22→22:44)
[2018-01-29 08:10] LABS: BASOPHILS % (AUTO) 1.4 % (0.0-5.0); EOSINOPHILS % (AUTO) 8.4 % (0.0-8.0); HEMATOCRIT 23.7 % (42-54); LYMPHOCYTES % (AUTO) 11.7 % (21.0-51.0); MEAN CORPUSCULAR HEMOGLOBIN 28.3 pg (27.0-33.0); MEAN CORPUSCULAR HGB CONC 33.4 g/dL (32.0-36.0); MEAN CORPUSCULAR VOLUME 84.8 fL (79-99); MONOCYTES % (AUTO) 8.9 % (3.0-13.0); NEUTROPHILS % (AUTO) 69.6 % (40.0-77.0); PLATELET COUNT (AUTO) 174 K/uL (130-400); RED CELL DISTRIBUTION WIDTH 19.4 % (11.0-15.5); WHITE BLOOD COUNT (AUTO) 5.1 K/uL (4.8-10.8)
[2018-01-29 08:27] VITALS: BP 150/92
[2018-01-29 08:33] LABS: CREATININE 0.6 mg/dL (0.5-1.5)
[2018-01-29 08:42] LABS: POTASSIUM 2.8 mmol/L (3.5-5.1)
[2018-01-29] MEDS ORDERED: LIDOCAINE HCL-MPF 1% 2ML VIAL IVP PRN (11:30)
[2018-01-29 12:00] VITALS: BP 143/84
[2018-01-29] MEDS: POTASSIUM CHLORIDE 20MEQ/100ML 100 ML IV PRN ×2 (12:00→14:47)
[2018-01-29 16:00] VITALS: BP 145/90
[2018-01-29] MEDS: LEVOFLOXACIN 500 MG/D5W 100 ML 100 ML IV SCH (16:04)
[2018-01-29] MEDS: MORPHINE SULFATE 4 MG/1ML SYG IVP PRN ×2 (16:18→22:44)
[2018-01-29] MEDS: VANCOMYCIN 1.5 GM in SODIUM CHLORIDE 0.9% 250 ML IV SCH (17:34)
[2018-01-29 19:10] LABS: MEAN CORPUSCULAR HEMOGLOBIN 28.5 pg (27.0-33.0); MEAN CORPUSCULAR HGB CONC 33.6 g/dL (32.0-36.0); MEAN CORPUSCULAR VOLUME 85.1 fL (79-99); PLATELET COUNT (AUTO) 187 K/uL (130-400); RED CELL DISTRIBUTION WIDTH 19.3 % (11.0-15.5); WHITE BLOOD COUNT (AUTO) 4.7 K/uL (4.8-10.8)
[2018-01-29 19:20] LABS: MAGNESIUM 1.4 mg/dL (1.80-2.40); POTASSIUM 3.1 mmol/L (3.5-5.1)
[2018-01-29 19:45] VITALS: BP 141/88
[2018-01-29] MEDS ORDERED: MAGNESIUM 2GM PREMIX 50ML 50 ML IV SCH (19:45)
[2018-01-30] VITALS (7 sets, daily range): BP systolic 131–155; BP diastolic 80–101
[2018-01-30] MEDS: POTASSIUM CHLORIDE 20MEQ/100ML 100 ML IV PRN (01:14)
[2018-01-30] MEDS: METRONIDAZOLE 500MG/100ML BAG 100 ML IV SCH ×3 (02:59→18:11)
[2018-01-30] MEDS: LACTATED RINGERS 1000ML 1,000 ML IV SCH ×3 (05:21→14:55)
[2018-01-30 06:35] LABS: HEMATOCRIT 24.8 % (42-54); MEAN CORPUSCULAR HGB CONC 34.2 g/dL (32.0-36.0); MEAN CORPUSCULAR VOLUME 84.8 fL (79-99); PLATELET COUNT (AUTO) 193 K/uL (130-400); RED BLOOD CELL COUNT(AUTO) 2.92 MIL/uL (4.50-6.20); RED CELL DISTRIBUTION WIDTH 19.2 % (11.0-15.5); WHITE BLOOD COUNT (AUTO) 5.1 K/uL (4.8-10.8)
[2018-01-30 06:46] LABS: CREATININE 0.5 mg/dL (0.5-1.5); POTASSIUM 3.3 mmol/L (3.5-5.1)
[2018-01-30] MEDS: MEROPENEM 1 GM VIAL IVP SCH ×3 (06:46→19:56)
[2018-01-30] MEDS: INSULIN HUMULIN R 100 UNIT/ML 3ML SQ SCH ×4 (06:47→19:57)
[2018-01-30] MEDS: MORPHINE SULFATE 4 MG/1ML SYG IVP PRN ×4 (06:47→23:47)
[2018-01-30] MEDS: VANCOMYCIN 1.5 GM in SODIUM CHLORIDE 0.9% 250 ML IV SCH ×2 (06:47→16:32)
[2018-01-30] MEDS: POTASSIUM CHLORIDE 20 MEQ ERTAB PO PRN ×3 (09:50→16:35)
[2018-01-30] MEDS: LEVOFLOXACIN 500 MG/D5W 100 ML 100 ML IV SCH (14:55)
[2018-01-31] MEDS: LACTATED RINGERS 1000ML 1,000 ML IV SCH ×3 (02:00→20:08)
[2018-01-31] MEDS: METRONIDAZOLE 500MG/100ML BAG 100 ML IV SCH ×3 (02:18→18:50)
[2018-01-31 03:21] VITALS: BP 134/86
[2018-01-31] MEDS: MEROPENEM 1 GM VIAL IVP SCH ×3 (04:38→21:43)
[2018-01-31] MEDS: MORPHINE SULFATE 4 MG/1ML SYG IVP PRN ×4 (05:33→18:50)
[2018-01-31] MEDS: INSULIN HUMULIN R 100 UNIT/ML 3ML SQ SCH ×4 (06:11→21:00)
[2018-01-31 08:15] VITALS: BP 144/83
[2018-01-31] MEDS: VANCOMYCIN 1.5 GM in SODIUM CHLORIDE 0.9% 250 ML IV SCH ×2 (09:27→20:08)
[2018-01-31 11:36] VITALS: BP 142/88
[2018-01-31 16:00] VITALS: BP 138/77
[2018-01-31] MEDS: LEVOFLOXACIN 500 MG/D5W 100 ML 100 ML IV SCH (17:40)
[2018-01-31 21:02] VITALS: BP 146/90
[2018-02-01 00:23] VITALS: BP 138/94
[2018-02-01] MEDS: LACTATED RINGERS 1000ML 1,000 ML IV SCH ×2 (01:03→09:17)
[2018-02-01] MEDS: METRONIDAZOLE 500MG/100ML BAG 100 ML IV SCH ×3 (01:18→17:39)
[2018-02-01] MEDS: MORPHINE SULFATE 4 MG/1ML SYG IVP PRN ×5 (01:19→21:22)
[2018-02-01] MEDS: VANCOMYCIN 1.5 GM in SODIUM CHLORIDE 0.9% 250 ML IV SCH (05:27)
[2018-02-01] MEDS: MEROPENEM 1 GM VIAL IVP SCH ×3 (05:28→21:21)
[2018-02-01 06:17] VITALS: BP 128/94
[2018-02-01] MEDS: INSULIN HUMULIN R 100 UNIT/ML 3ML SQ SCH ×4 (06:54→21:00)
[2018-02-01 08:00] VITALS: BP 141/89
[2018-02-01 11:00] VITALS: BP 132/81
[2018-02-01 15:29] LABS: HEMATOCRIT 26.9 % (42-54); MEAN CORPUSCULAR HEMOGLOBIN 29.6 pg (27.0-33.0); MEAN CORPUSCULAR HGB CONC 34.4 g/dL (32.0-36.0); NUCLEATED RED BLOOD CELLS 0.1 % (0.0-0.19); PLATELET COUNT (AUTO) 173 K/uL (130-400); RED BLOOD CELL COUNT(AUTO) 3.12 MIL/uL (4.50-6.20); RED CELL DISTRIBUTION WIDTH 19.4 % (11.0-15.5); WHITE BLOOD COUNT (AUTO) 6.3 K/uL (4.8-10.8)
[2018-02-01] MEDS: LEVOFLOXACIN 500 MG/D5W 100 ML 100 ML IV SCH (15:34)
[2018-02-01 16:00] VITALS: BP 128/83
[2018-02-01] MEDS: VANCOMYCIN 1.25 GM in SODIUM CHLORIDE 0.9% 250 ML IV SCH (17:34)
[2018-02-01 20:53] VITALS: BP 137/91
[2018-02-02] VITALS (7 sets, daily range): BP systolic 121–147; BP diastolic 70–97
[2018-02-02] MEDS: LACTATED RINGERS 1000ML 1,000 ML IV SCH (00:06)
[2018-02-02] MEDS: METRONIDAZOLE 500MG/100ML BAG 100 ML IV SCH ×3 (02:02→18:02)
[2018-02-02] MEDS: MORPHINE SULFATE 4 MG/1ML SYG IVP PRN ×5 (02:06→21:06)
[2018-02-02] MEDS: MEROPENEM 1 GM VIAL IVP SCH ×3 (05:29→21:05)
[2018-02-02] MEDS: VANCOMYCIN 1.25 GM in SODIUM CHLORIDE 0.9% 250 ML IV SCH (05:30)
[2018-02-02 05:49] LABS: HEMATOCRIT 26.7 % (42-54); MEAN CORPUSCULAR HGB CONC 33.8 g/dL (32.0-36.0); MEAN CORPUSCULAR VOLUME 85.8 fL (79-99); PLATELET COUNT (AUTO) 188 K/uL (130-400); RED BLOOD CELL COUNT(AUTO) 3.11 MIL/uL (4.50-6.20); RED CELL DISTRIBUTION WIDTH 19.3 % (11.0-15.5); WHITE BLOOD COUNT (AUTO) 5.2 K/uL (4.8-10.8)
[2018-02-02 05:58] LABS: CREATININE 0.7 mg/dL (0.5-1.5); MAGNESIUM 1.7 mg/dL (1.80-2.40); POTASSIUM 3.6 mmol/L (3.5-5.1)
[2018-02-02] MEDS: INSULIN HUMULIN R 100 UNIT/ML 3ML SQ SCH ×4 (06:53→20:36)
[2018-02-02] MEDS: HYDROCODONE/ACETAMINOPHEN 7.5/325 MG TAB PO PRN (14:35)
[2018-02-02] MEDS: LEVOFLOXACIN 500 MG/D5W 100 ML 100 ML IV SCH (15:40)
[2018-02-02] MEDS ORDERED: PHARMACY COMMUNICATION MISC SCH (16:15)
[2018-02-02] MEDS ORDERED: ALTEPLASE 2 MG/2 ML IVCATH SCH (17:00)
[2018-02-03] MEDS: METRONIDAZOLE 500MG/100ML BAG 100 ML IV SCH ×3 (02:21→19:15)
[2018-02-03] MEDS: HYDROCODONE/ACETAMINOPHEN 7.5/325 MG TAB PO PRN ×4 (02:21→20:32)
[2018-02-03 03:52] VITALS: BP 115/44
[2018-02-03] MEDS: MEROPENEM 1 GM VIAL IVP SCH ×3 (05:18→20:32)
[2018-02-03] MEDS: VANCOMYCIN 1.25 GM in SODIUM CHLORIDE 0.9% 250 ML IV SCH ×2 (05:19→19:15)
[2018-02-03] MEDS: INSULIN HUMULIN R 100 UNIT/ML 3ML SQ SCH ×4 (05:22→20:32)
[2018-02-03 05:35] LABS: HEMATOCRIT 27.6 % (42-54); MEAN CORPUSCULAR HEMOGLOBIN 29.2 pg (27.0-33.0); MEAN CORPUSCULAR HGB CONC 33.9 g/dL (32.0-36.0); MEAN CORPUSCULAR VOLUME 86.1 fL (79-99); PLATELET COUNT (AUTO) 188 K/uL (130-400); RED BLOOD CELL COUNT(AUTO) 3.21 MIL/uL (4.50-6.20); RED CELL DISTRIBUTION WIDTH 19.4 % (11.0-15.5); WHITE BLOOD COUNT (AUTO) 5.7 K/uL (4.8-10.8)
[2018-02-03 05:52] LABS: ALBUMIN 2.3 g/dL (3.5-5.0); BILIRUBIN,TOTAL 0.3 mg/dL (0.2-1.0); CREATININE 0.6 mg/dL (0.5-1.5); POTASSIUM 3.3 mmol/L (3.5-5.1); TOTAL PROTEIN, SERUM 5.7 g/dL (6.0-8.3)
[2018-02-03] MEDS: IPRATROPIUM 0.5 MG/2.5 ML INH IH SCH ×4 (06:05→23:29)
[2018-02-03 07:53] VITALS: BP 120/71
[2018-02-03] MEDS: POTASSIUM CHLORIDE 20 MEQ ERTAB PO PRN (07:54)
[2018-02-03] MEDS: PANTOPRAZOLE SODIUM 40 MG TABLET.DR PO SCH (07:54)
[2018-02-03 11:38] VITALS: BP 141/85
[2018-02-03] MEDS: LEVOFLOXACIN 500 MG/D5W 100 ML 100 ML IV SCH (12:47)
[2018-02-03] MEDS ORDERED: MORPHINE SULFATE 4 MG/1ML SYG ONE ×2 (15:08→22:51)
[2018-02-03 16:40] VITALS: BP 128/64
[2018-02-03 19:47] VITALS: BP 128/68
[2018-02-04] VITALS (7 sets, daily range): BP systolic 129–144; BP diastolic 72–96
[2018-02-04] MEDS: METRONIDAZOLE 500MG/100ML BAG 100 ML IV SCH ×3 (01:28→17:32)
[2018-02-04] MEDS ORDERED: MORPHINE SULFATE 4 MG/1ML SYG ONE ×5 (05:54→22:16)
[2018-02-04] MEDS: VANCOMYCIN 1.25 GM in SODIUM CHLORIDE 0.9% 250 ML IV SCH ×2 (05:57→16:22)
[2018-02-04] MEDS: INSULIN HUMULIN R 100 UNIT/ML 3ML SQ SCH ×4 (05:57→20:25)
[2018-02-04] MEDS: MEROPENEM 1 GM VIAL IVP SCH ×3 (05:57→20:29)
[2018-02-04 06:08] LABS: BASOPHILS % (AUTO) 1.5 % (0.0-5.0); EOSINOPHILS % (AUTO) 10.4 % (0.0-8.0); HEMATOCRIT 28.6 % (42-54); LYMPHOCYTES % (AUTO) 17.1 % (21.0-51.0); MEAN CORPUSCULAR HGB CONC 33.7 g/dL (32.0-36.0); MEAN CORPUSCULAR VOLUME 86.1 fL (79-99); MONOCYTES % (AUTO) 13.4 % (3.0-13.0); NEUTROPHILS % (AUTO) 57.6 % (40.0-77.0); PLATELET COUNT (AUTO) 191 K/uL (130-400); RED BLOOD CELL COUNT(AUTO) 3.32 MIL/uL (4.50-6.20); RED CELL DISTRIBUTION WIDTH 19.8 % (11.0-15.5); WHITE BLOOD COUNT (AUTO) 4.8 K/uL (4.8-10.8)
[2018-02-04 06:15] LABS: CREATININE 0.6 mg/dL (0.5-1.5); MAGNESIUM 1.6 mg/dL (1.80-2.40); POTASSIUM 3.7 mmol/L (3.5-5.1)
[2018-02-04] MEDS: IPRATROPIUM 0.5 MG/2.5 ML INH IH SCH ×4 (06:41→23:35)
[2018-02-04] MEDS: PANTOPRAZOLE SODIUM 40 MG TABLET.DR PO SCH (09:54)
[2018-02-04] MEDS: MORPHINE SULFATE 2 MG/ML 1ML SYG IVP PRN ×2 (09:54→22:19)
[2018-02-04] MEDS: DIPHENHYDRAMINE HCL 25 MG CAPSULE PO PRN ×2 (11:41→19:49)
[2018-02-04] MEDS: LEVOFLOXACIN 500 MG/D5W 100 ML 100 ML IV SCH (13:40)
[2018-02-05] MEDS: METRONIDAZOLE 500MG/100ML BAG 100 ML IV SCH ×3 (01:53→18:47)
[2018-02-05] MEDS: DIPHENHYDRAMINE HCL 25 MG CAPSULE PO PRN ×2 (01:55→09:11)
[2018-02-05 04:24] VITALS: BP 136/95
[2018-02-05] MEDS: MEROPENEM 1 GM VIAL IVP SCH ×4 (05:09→21:28)
[2018-02-05] MEDS: VANCOMYCIN 1.25 GM in SODIUM CHLORIDE 0.9% 250 ML IV SCH ×2 (05:09→16:57)
[2018-02-05] MEDS: INSULIN HUMULIN R 100 UNIT/ML 3ML SQ SCH ×4 (06:06→21:00)
[2018-02-05] MEDS: IPRATROPIUM 0.5 MG/2.5 ML INH IH SCH ×4 (06:39→23:56)
[2018-02-05 08:00] VITALS: BP 142/88
[2018-02-05] MEDS ORDERED: MORPHINE SULFATE 4 MG/1ML SYG ONE (09:05)
[2018-02-05] MEDS: MORPHINE SULFATE 2 MG/ML 1ML SYG IVP PRN (09:11)
[2018-02-05] MEDS: PANTOPRAZOLE SODIUM 40 MG TABLET.DR PO SCH (09:11)
[2018-02-05] MEDS: LORAZEPAM 0.5 MG TABLET PO PRN ×2 (11:51→18:51)
[2018-02-05 12:00] VITALS: BP 133/92
[2018-02-05] MEDS: MORPHINE SULFATE 4 MG/1ML SYG IVP PRN ×3 (13:54→21:30)
[2018-02-05] MEDS: LEVOFLOXACIN 500 MG/D5W 100 ML 100 ML IV SCH (15:13)
[2018-02-05 16:00] VITALS: BP 121/82
[2018-02-05 19:58] VITALS: BP 117/77
[2018-02-05] MEDS: TRAZODONE HCL 100 MG TABLET PO SCH (21:27)
[2018-02-05] MEDS: HYDROXYZINE HCL 25 MG TABLET PO PRN (21:27)
[2018-02-06] VITALS (7 sets, daily range): BP systolic 122–147; BP diastolic 63–88
[2018-02-06] MEDS: MORPHINE SULFATE 4 MG/1ML SYG IVP PRN ×4 (01:38→18:08)
[2018-02-06] MEDS: METRONIDAZOLE 500MG/100ML BAG 100 ML IV SCH ×3 (01:39→18:08)
[2018-02-06] MEDS: MEROPENEM 1 GM VIAL IVP SCH ×3 (05:57→20:18)
[2018-02-06] MEDS: VANCOMYCIN 1.25 GM in SODIUM CHLORIDE 0.9% 250 ML IV SCH ×2 (05:57→17:55)
[2018-02-06] MEDS: INSULIN HUMULIN R 100 UNIT/ML 3ML SQ SCH ×4 (05:57→20:24)
[2018-02-06 06:13] LABS: BASOPHILS % (AUTO) 1.3 % (0.0-5.0); EOSINOPHILS % (AUTO) 8.5 % (0.0-8.0); HEMATOCRIT 27.4 % (42-54); LYMPHOCYTES % (AUTO) 13.6 % (21.0-51.0); MEAN CORPUSCULAR HEMOGLOBIN 30.8 pg (27.0-33.0); MEAN CORPUSCULAR HGB CONC 35.4 g/dL (32.0-36.0); MEAN CORPUSCULAR VOLUME 86.9 fL (79-99); MONOCYTES % (AUTO) 10.8 % (3.0-13.0); NEUTROPHILS % (AUTO) 65.8 % (40.0-77.0); PLATELET COUNT (AUTO) 184 K/uL (130-400); RED BLOOD CELL COUNT(AUTO) 3.15 MIL/uL (4.50-6.20); RED CELL DISTRIBUTION WIDTH 20.1 % (11.0-15.5); WHITE BLOOD COUNT (AUTO) 5.8 K/uL (4.8-10.8)
[2018-02-06 06:21] LABS: CREATININE 0.6 mg/dL (0.5-1.5); POTASSIUM 3.4 mmol/L (3.5-5.1)
[2018-02-06] MEDS: IPRATROPIUM 0.5 MG/2.5 ML INH IH SCH ×4 (06:23→23:09)
[2018-02-06] MEDS ORDERED: MORPHINE SULFATE 8 MG/ML VIAL ONE (07:38)
[2018-02-06] MEDS: OLANZAPINE 5 MG TAB PO SCH (08:38)
[2018-02-06] MEDS: PANTOPRAZOLE SODIUM 40 MG TABLET.DR PO SCH (08:38)
[2018-02-06] MEDS: POTASSIUM CHLORIDE 20 MEQ ERTAB PO PRN ×2 (11:03→14:14)
[2018-02-06] MEDS: POTASSIUM CHLORIDE 20 MEQ ERTAB PO SCH (14:30)
[2018-02-06] MEDS: LEVOFLOXACIN 500 MG/D5W 100 ML 100 ML IV SCH (16:16)
[2018-02-06] MEDS: TRAZODONE HCL 100 MG TABLET PO SCH (20:18)
[2018-02-07] MEDS: MORPHINE SULFATE 4 MG/1ML SYG IVP PRN ×3 (01:06→14:30)
[2018-02-07] MEDS: METRONIDAZOLE 500MG/100ML BAG 100 ML IV SCH ×2 (01:27→10:27)
[2018-02-07 03:00] VITALS: BP 126/78
[2018-02-07] MEDS: VANCOMYCIN 1.25 GM in SODIUM CHLORIDE 0.9% 250 ML IV SCH (05:22)
[2018-02-07] MEDS: MEROPENEM 1 GM VIAL IVP SCH ×2 (05:23→14:29)
[2018-02-07 05:50] LABS: BASOPHILS % (AUTO) 1.2 % (0.0-5.0); EOSINOPHILS % (AUTO) 8.4 % (0.0-8.0); HEMATOCRIT 25.5 % (42-54); LYMPHOCYTES % (AUTO) 13.7 % (21.0-51.0); MEAN CORPUSCULAR HEMOGLOBIN 29.2 pg (27.0-33.0); MEAN CORPUSCULAR HGB CONC 33.4 g/dL (32.0-36.0); MEAN CORPUSCULAR VOLUME 87.6 fL (79-99); MONOCYTES % (AUTO) 10.5 % (3.0-13.0); NEUTROPHILS % (AUTO) 66.2 % (40.0-77.0); PLATELET COUNT (AUTO) 175 K/uL (130-400); RED BLOOD CELL COUNT(AUTO) 2.91 MIL/uL (4.50-6.20); RED CELL DISTRIBUTION WIDTH 19.8 % (11.0-15.5); WHITE BLOOD COUNT (AUTO) 5.6 K/uL (4.8-10.8)
[2018-02-07] MEDS: INSULIN HUMULIN R 100 UNIT/ML 3ML SQ SCH ×2 (05:55→11:30)
[2018-02-07 06:12] LABS: CREATININE 0.8 mg/dL (0.5-1.5); POTASSIUM 3.2 mmol/L (3.5-5.1)
[2018-02-07] MEDS: IPRATROPIUM 0.5 MG/2.5 ML INH IH SCH ×2 (06:29→11:34)
[2018-02-07] MEDS: POTASSIUM CHLORIDE 20 MEQ ERTAB PO PRN (06:51)
[2018-02-07 07:00] VITALS: BP 134/80
[2018-02-07] MEDS: OLANZAPINE 5 MG TAB PO SCH (10:26)
[2018-02-07] MEDS: POTASSIUM CHLORIDE 10% ELIXIR 20 MEQ/15 ML UDCUP PO PRN ×2 (10:27→14:29)
[2018-02-07] MEDS: PANTOPRAZOLE SODIUM 40 MG TABLET.DR PO SCH (10:27)
[2018-02-07 12:12] VITALS: BP 133/84
[2018-02-07] MEDS: LEVOFLOXACIN 500 MG/D5W 100 ML 100 ML IV SCH (14:29)
[2018-02-07] MEDS: HYDROXYZINE HCL 25 MG TABLET PO PRN (14:29)
[2018-02-07] MEDS: POTASSIUM CHLORIDE 20 MEQ ERTAB PO SCH (14:30)
== END 2018-02-07 19:10 | DRG 391 ==
LOC: EDH 11:27 → EDHIP 14:30 → 3DH 18:59
PROVIDERS: ADMIT Family Medicine; ATTEND Family Medicine
DX: K52.9 Noninfective gastroenteritis and colitis, unspecified (principal); G93.40 Encephalopathy, unspecified; K57.80 Diverticulitis of intestine, part unspecified, with perforation and abscess without bleeding; T81.30XA Disruption of wound, unspecified, initial encounter; T78.2XXA Anaphylactic shock, unspecified, initial encounter; I50.9 Heart failure, unspecified; I11.0 Hypertensive heart disease with heart failure; G47.33 Obstructive sleep apnea (adult) (pediatric); E66.9 Obesity, unspecified; B99.9 Unspecified infectious disease; G89.29 Other chronic pain; E11.9 Type 2 diabetes mellitus without complications; J45.909 Unspecified asthma, uncomplicated; Y82.9 Unspecified medical devices associated with adverse incidents; F41.1 Generalized anxiety disorder; Y83.8 Other surgical procedures as the cause of abnormal reaction of the patient, or of later complication, without mention of misadventure at the time of the procedure; Y82.8 Other medical devices associated with adverse incidents; J44.9 Chronic obstructive pulmonary disease, unspecified; Z90.49 Acquired absence of other specified parts of digestive tract; Z93.3 Colostomy status; Z79.84 Long term (current) use of oral hypoglycemic drugs; Z68.28 Body mass index [BMI] 28.0-28.9, adult; Y92.89 Other specified places as the place of occurrence of the external cause; Z88.8 Allergy status to other drugs, medicaments and biological substances
CPT/HCPCS: 36415; 36600; 71045; 74177; 80048; 80053; 80202; 81001; 82140; 82550; 82553; 82803; 82948; 83605; 83735; 83874; 84132; 84484; 85025; 85027; 85610; 85730; 87040; 87088; 93005; 94640; 94664; 97039; 99291; A4218; C9113; J0171; J0360; J1956; J2185; J2270; J2543; J2997; J3370; J3475; J3480; J3490; J7030; J7120; Q0163; Q9963; Q9967

== ENCOUNTER 2018-06-16 23:13 | Emergency (ER) | payer OTHER ==
[2018-06-16] MEDS ORDERED: MORPHINE SULFATE 2 MG/ML 1ML SYG ONE (23:33)
== END 2018-06-17 00:37 | disposition home or self-care (01) ==
LOC: EDH 23:13
DX: T85.848A Pain due to other internal prosthetic devices, implants and grafts, initial encounter (principal); J44.9 Chronic obstructive pulmonary disease, unspecified; I11.0 Hypertensive heart disease with heart failure; E11.9 Type 2 diabetes mellitus without complications; I50.9 Heart failure, unspecified; Z88.8 Allergy status to other drugs, medicaments and biological substances; Z87.891 Personal history of nicotine dependence; Z79.4 Long term (current) use of insulin; Z98.890 Other specified postprocedural states; Z93.3 Colostomy status
CPT/HCPCS: 96372

== ENCOUNTER 2018-11-16 01:08 | Emergency (ER) | payer OTHER ==
[~2018-11-16 01:08] MED LIST changes: -ALBU8.5H8 PUFF; -BENZ-51 PO; +ERGO800010 PO; -GABA-529 PO; +HYDR-3421 PO; -INSU3INS3 SQ; -IPRA0.2S54 IH; +LEVO500T2 PO; +LORA0.5T2 PO; +LORA10TA7 PO; +OLAN2.5T29 PO; -OLAN2.5T3 PO; -OMEP40CA37 PO; -PRED20TA3 PO; +PRED5TAB44 PO; -TIOT18CA3 IH
[2018-11-16] MEDS ORDERED: ONDANSETRON HCL 4 MG/2 ML VIAL ONE (01:28)
[2018-11-16] MEDS ORDERED: KETOROLAC TROMETHAMINE 30MG/ML ONE (01:29)
[2018-11-16] MEDS ORDERED: METHYLPREDNISOLONE SOD SUCC 125MG/2ML VIAL ONE (01:29)
[2018-11-16] MEDS ORDERED: ASPIRIN 325 MG TABLET ONE (01:29)
[2018-11-16 01:34] LABS: BASOPHILS % (AUTO) 1.3 % (0.0-5.0); EOSINOPHILS % (AUTO) 6.1 % (0.0-8.0); LYMPHOCYTES % (AUTO) 16.3 % (21.0-51.0); MEAN CORPUSCULAR HEMOGLOBIN 28.7 pg (27.0-33.0); MEAN CORPUSCULAR HGB CONC 33.5 g/dL (32.0-36.0); MEAN CORPUSCULAR VOLUME 85.7 fL (79-99); MONOCYTES % (AUTO) 10.8 % (3.0-13.0); NEUTROPHILS % (AUTO) 65.5 % (40.0-77.0); NUCLEATED RED BLOOD CELLS 0.1 % (0.0-0.19); PLATELET COUNT (AUTO) 179 K/uL (130-400); RED BLOOD CELL COUNT(AUTO) 5.13 MIL/uL (4.50-6.20); RED CELL DISTRIBUTION WIDTH 14.9 % (11.0-15.5); WHITE BLOOD COUNT (AUTO) 8.6 K/uL (4.8-10.8)
[2018-11-16 01:37] LABS: INR 1.04 (0.85-1.15); PARTIAL THROMBOPLASTIN TIME 30.9 SEC (26.3-35.5); PROTHROMBIN TIME 10.9 SEC (9.6-11.6)
[2018-11-16] MEDS ORDERED: IPRATROPIUM/ALBUTEROL SULFATE 3 ML SOLUTION IH ONE (01:37)
[2018-11-16 01:39] LABS: CREATININE 1.5 mg/dL (0.5-1.5)
[2018-11-16 01:50] LABS: ALBUMIN 3.4 g/dL (3.5-5.0); BILIRUBIN,TOTAL 0.6 mg/dL (0.2-1.0); TOTAL PROTEIN, SERUM 8.2 g/dL (6.0-8.3)
[2018-11-16] MEDS ORDERED: LIDOCAINE 5% TOPICAL PATCH TP ONE (02:19)
[2018-11-16] MEDS ORDERED: LIDOCAINE HCL 2% VISCOUS 15 ML UDCUP ONE (02:19)
[2018-11-16] MEDS ORDERED: MAG HYDROX/AL HYDROX/SIMETH ES 30 ML SUSP UDCUP ONE (02:19)
[2018-11-16] MEDS ORDERED: ACETAMINOPHEN EXTRA STRENGTH 500 MG TABLET ONE (02:20)
[2018-11-16] MEDS ORDERED: ALBUTEROL SULFATE 0.083% 2.5 MG/3 ML INH IH ONE (02:30)
== END 2018-11-16 03:09 | disposition home or self-care (01) ==
LOC: EDH 01:08
DX: S29.011A Strain of muscle and tendon of front wall of thorax, initial encounter (principal); J44.1 Chronic obstructive pulmonary disease with (acute) exacerbation; J20.9 Acute bronchitis, unspecified; I11.0 Hypertensive heart disease with heart failure; I50.9 Heart failure, unspecified; E11.9 Type 2 diabetes mellitus without complications; Z88.3 Allergy status to other anti-infective agents; Z87.891 Personal history of nicotine dependence; X58.XXXA Exposure to other specified factors, initial encounter; Y93.89 Activity, other specified; Y92.89 Other specified places as the place of occurrence of the external cause; Y99.8 Other external cause status
CPT/HCPCS: 36415; 71045; 80053; 82550; 83605; 83690; 83874; 83880; 84484; 85025; 85610; 85730; 93005; 94640 ×2; 96374; 96375; 99284; J1885; J2405; J2930

== ENCOUNTER 2018-11-23 12:53 | Emergency (ER) | payer OTHER ==
[2018-11-23] MEDS ORDERED: ONDANSETRON HCL 4 MG/2 ML VIAL ONE (14:17)
[2018-11-23] MEDS ORDERED: MORPHINE SULFATE 4 MG/1ML SYG ONE (14:18)
[2018-11-23 14:27] LABS: BASOPHILS % (AUTO) 1.2 % (0.0-5.0); EOSINOPHILS % (AUTO) 9.8 % (0.0-8.0); HEMATOCRIT 38.5 % (42-54); LYMPHOCYTES % (AUTO) 18.7 % (21.0-51.0); MEAN CORPUSCULAR HEMOGLOBIN 28.7 pg (27.0-33.0); MEAN CORPUSCULAR HGB CONC 33.6 g/dL (32.0-36.0); MEAN CORPUSCULAR VOLUME 85.4 fL (79-99); MONOCYTES % (AUTO) 13.8 % (3.0-13.0); NEUTROPHILS % (AUTO) 56.5 % (40.0-77.0); NUCLEATED RED BLOOD CELLS 0.1 % (0.0-0.19); PLATELET COUNT (AUTO) 165 K/uL (130-400); RED BLOOD CELL COUNT(AUTO) 4.51 MIL/uL (4.50-6.20); RED CELL DISTRIBUTION WIDTH 15.3 % (11.0-15.5); WHITE BLOOD COUNT (AUTO) 6.5 K/uL (4.8-10.8)
[2018-11-23 15:00] LABS: POTASSIUM 3.4 mmol/L (3.5-5.1)
[2018-11-23 15:05] LABS: BILIRUBIN,TOTAL 0.9 mg/dL (0.2-1.0)
== END 2018-11-23 16:55 | disposition home or self-care (01) ==
LOC: EDH 12:53 → EEVIPCON 12:53 → EDH 16:55
DX: R10.9 Unspecified abdominal pain (principal); I11.0 Hypertensive heart disease with heart failure; I50.9 Heart failure, unspecified; J44.9 Chronic obstructive pulmonary disease, unspecified; E11.9 Type 2 diabetes mellitus without complications; Z93.3 Colostomy status; Z88.8 Allergy status to other drugs, medicaments and biological substances
CPT/HCPCS: 36415; 74176; 80053; 83690; 85025; 96374; 96375; 99284; J2270; J2405

== ENCOUNTER 2018-11-25 03:52 | Emergency (ER) | payer OTHER ==
[2018-11-25 04:15] LABS: BASOPHILS % (AUTO) 1.1 % (0.0-5.0); EOSINOPHILS % (AUTO) 3.7 % (0.0-8.0); HEMATOCRIT 35.8 % (42-54); LYMPHOCYTES % (AUTO) 17.8 % (21.0-51.0); MEAN CORPUSCULAR HGB CONC 33.3 g/dL (32.0-36.0); MEAN CORPUSCULAR VOLUME 87.3 fL (79-99); MONOCYTES % (AUTO) 10.3 % (3.0-13.0); NEUTROPHILS % (AUTO) 67.1 % (40.0-77.0); PLATELET COUNT (AUTO) 143 K/uL (130-400); RED CELL DISTRIBUTION WIDTH 15.6 % (11.0-15.5); WHITE BLOOD COUNT (AUTO) 7.1 K/uL (4.8-10.8)
[2018-11-25 04:22] LABS: INR 0.95 (0.85-1.15); PARTIAL THROMBOPLASTIN TIME 30.8 SEC (26.3-35.5)
[2018-11-25 04:23] LABS: CREATININE 0.8 mg/dL (0.5-1.5); POTASSIUM 3.8 mmol/L (3.5-5.1)
[2018-11-25 04:27] LABS: ALBUMIN 2.7 g/dL (3.5-5.0); BILIRUBIN,TOTAL 0.2 mg/dL (0.2-1.0); TOTAL PROTEIN, SERUM 5.2 g/dL (6.0-8.3)
[2018-11-25] MEDS ORDERED: IPRATROPIUM/ALBUTEROL SULFATE 3 ML SOLUTION IH ONE (04:32)
[2018-11-25] MEDS ORDERED: PANTOPRAZOLE SODIUM 40 MG TABLET.DR PO ONE (06:04)
[2018-11-25] MEDS ORDERED: FAMOTIDINE 20MG TAB 20 MG TAB ONE (06:04)
[2018-11-25 06:23] LABS: APPEARANCE,URINE Clear (CLEAR); BILIRUBIN,URINE Negative (NEGATIVE); COLOR,URINE Yellow (YELLOW); GLUCOSE, URINE (UA) Negative (NEGATIVE); KETONES,URINE Negative (NEGATIVE); LEUKOCYTE ESTERASE ,URINE Negative (NEGATIVE); NITRATE,URINE Negative (NEGATIVE); OCCULT BLOOD,URINE Negative (NEGATIVE); PROTEIN,URINE Negative (NEGATIVE); UROBILINOGEN,URINE 0.2 mg/dL (0.2-1.0)
== END 2018-11-25 07:07 | disposition home or self-care (01) ==
LOC: EDH 03:52
DX: J45.21 Mild intermittent asthma with (acute) exacerbation (principal); F10.10 Alcohol abuse, uncomplicated; I11.0 Hypertensive heart disease with heart failure; I50.9 Heart failure, unspecified; E11.9 Type 2 diabetes mellitus without complications; J44.9 Chronic obstructive pulmonary disease, unspecified; Z88.8 Allergy status to other drugs, medicaments and biological substances; Z98.890 Other specified postprocedural states; Z93.3 Colostomy status
CPT/HCPCS: 36415; 71045; 80053; 81003; 84484; 85025; 85610; 85730; 93005; 94640; 99284; G0480

== ENCOUNTER 2019-02-21 16:09 | Inpatient (IN) | payer OTHER ==
[~2019-02-21] VITALS: Ht 182.9 cm; Wt 98.0 kg
[2019-02-21] MEDS ORDERED: METHYLPREDNISOLONE SOD SUCC 125MG/2ML VIAL ONE (16:25)
[2019-02-21] MEDS ORDERED: ONDANSETRON HCL 4 MG/2 ML VIAL ONE (16:25)
[2019-02-21] MEDS ORDERED: ALBUTEROL SULFATE 0.083% 2.5 MG/3 ML INH IH ONE ×5 (16:32→16:33)
[2019-02-21 16:34] LABS: BASOPHILS % (AUTO) 3.5 % (0.0-5.0); EOSINOPHILS % (AUTO) 17.2 % (0.0-8.0); HEMATOCRIT 43.1 % (42-54); LYMPHOCYTES % (AUTO) 19.8 % (21.0-51.0); MEAN CORPUSCULAR HEMOGLOBIN 28.6 pg (27.0-33.0); MEAN CORPUSCULAR HGB CONC 33.6 g/dL (32.0-36.0); MEAN CORPUSCULAR VOLUME 85.1 fL (79-99); NEUTROPHILS % (AUTO) 48.5 % (40.0-77.0); NUCLEATED RED BLOOD CELLS 0.1 % (0.0-0.19); PLATELET COUNT (AUTO) 163 K/uL (130-400); RED BLOOD CELL COUNT(AUTO) 5.06 MIL/uL (4.50-6.20); RED CELL DISTRIBUTION WIDTH 15.9 % (11.0-15.5); WHITE BLOOD COUNT (AUTO) 5.4 K/uL (4.8-10.8)
[2019-02-21 16:44] LABS: POTASSIUM 3.3 mmol/L (3.5-5.1)
[2019-02-21] MEDS ORDERED: AZITHROMYCIN 500MG+NS 250ML 250 ML IV ONE (16:58)
[2019-02-21 17:05] LABS: ALBUMIN 3.2 g/dL (3.5-5.0); TOTAL PROTEIN, SERUM 6.6 g/dL (6.0-8.3)
[2019-02-21 17:17] LABS: BILIRUBIN,TOTAL 1.1 mg/dL (0.2-1.0)
[2019-02-21] MEDS ORDERED: POTASSIUM CHLORIDE 20 MEQ ERTAB PO ONE (17:30)
[2019-02-21 17:32] LABS: B-TYPE NATRIURETIC PEPTIDE 11 pg/mL (0-100)
[2019-02-21] MEDS ORDERED: IPRATROPIUM/ALBUTEROL SULFATE 3 ML SOLUTION IH ONE ×2 (17:45→21:46)
[2019-02-21] MEDS ORDERED: CEFTRIAXONE SODIUM 1 GM ONE (17:54)
[2019-02-21] MEDS ORDERED: SODIUM CHLORIDE 0.9% 100 ML IV ONE (17:55)
[2019-02-21] MEDS ORDERED: BUDESONIDE 0.5 MG/2 ML INH IH ONE (21:46)
[2019-02-21] MEDS: IPRATROPIUM/ALBUTEROL SULFATE 3 ML SOLUTION IH SCH (22:00)
[2019-02-21] MEDS ORDERED: GLUCAGON 1MG KIT 1 MG ML IM PRN (22:15)
[2019-02-21] MEDS ORDERED: DEXTROSE 50%-WATER 50 ML DISP.SYRIN IV PRN (22:15)
[2019-02-22 00:05] VITALS: BP 117/71
[2019-02-22] MEDS ORDERED: ONDANSETRON HCL 4 MG/2 ML VIAL ONE (01:06)
[2019-02-22] MEDS: METHYLPREDNISOLONE SOD SUCC 40MG/ML 1ML IVP SCH ×5 (01:17→22:58)
[2019-02-22] MEDS: IPRATROPIUM/ALBUTEROL SULFATE 3 ML SOLUTION IH SCH ×6 (01:36→21:30)
[2019-02-22 04:06] VITALS: BP 122/68
[2019-02-22 04:20] LABS: APPEARANCE,URINE Clear (CLEAR); BILIRUBIN,URINE Negative (NEGATIVE); COLOR,URINE Yellow (YELLOW); GLUCOSE, URINE (UA) >=1000 mg/dL (NEGATIVE); KETONES,URINE Negative (NEGATIVE); LEUKOCYTE ESTERASE ,URINE Negative (NEGATIVE); NITRATE,URINE Negative (NEGATIVE); OCCULT BLOOD,URINE Negative (NEGATIVE); PH,URINE 7.5 (5.0-8.0); PROTEIN,URINE Negative (NEGATIVE); UROBILINOGEN,URINE 0.2 mg/dL (0.2-1.0)
[2019-02-22 04:30] LABS: BACTERIA,URINE Rare /HPF (None Seen); RBC,URINE 0-1 /HPF (0-1); SQUAMOUS EPITHELIAL CELL,UR 0-2 /HPF (0-2); WBC,URINE None Seen /HPF (0-1)
[2019-02-22] MEDS: CEFTRIAXONE SODIUM 1 GM IVP SCH ×2 (05:59→16:52)
[2019-02-22] MEDS: INSULIN R PO SS2 SQ SCH ×4 (06:04→21:34)
[2019-02-22] MEDS: BUDESONIDE 0.5 MG/2 ML INH IH SCH ×2 (06:24→18:13)
[2019-02-22 07:00] VITALS: BP 120/77
[2019-02-22] MEDS ORDERED: INSULIN HUMULIN R 100 UNIT/ML 3ML SQ SCH (07:30)
[2019-02-22] MEDS: DOXYCYCLINE HYCLATE 100 MG TABLET PO SCH ×2 (08:15→20:42)
[2019-02-22] MEDS: ONDANSETRON HCL 4 MG/2 ML VIAL IVP PRN ×2 (08:26→14:12)
[2019-02-22 11:00] VITALS: BP 117/73
--- NOTE | 2019-02-22 11:00 | NUR ---
INITIAL INITIAL ATTEMPTED, PT SLEEPING, WILL VISIT AGAIN Addendum: 02/23/19 at 1403 by SHANNAN WILKINSON RN CM Amended: Links added.
[2019-02-22] MEDS ORDERED: ACETAMINOPHEN EXTRA STRENGTH 500 MG TABLET ONE (11:21)
[2019-02-22] MEDS: ACETAMINOPHEN EXTRA STRENGTH 500 MG TABLET PO PRN (11:25)
--- NOTE | 2019-02-22 15:40 | NUR ---
BENCHMARK DR. LONG IN TO SEE PATIENT. WILL CONTINUE MONITORING PATIENT OVERNIGHT. NO NEW ORDERS RECEIVED.
[2019-02-22 16:00] VITALS: BP 139/86
[2019-02-22 19:12] VITALS: BP 115/72
[2019-02-22] MEDS: CYCLOBENZAPRINE HCL 10 MG TABLET PO PRN (20:43)
[2019-02-23 00:12] VITALS: BP 128/74
[2019-02-23] MEDS: IPRATROPIUM/ALBUTEROL SULFATE 3 ML SOLUTION IH SCH ×6 (01:22→21:52)
[2019-02-23 04:04] VITALS: BP 124/69
[2019-02-23] MEDS: INSULIN R PO SS2 SQ SCH ×4 (05:56→21:00)
[2019-02-23] MEDS: METHYLPREDNISOLONE SOD SUCC 40MG/ML 1ML IVP SCH (06:02)
[2019-02-23] MEDS: CEFTRIAXONE SODIUM 1 GM IVP SCH ×2 (06:02→16:48)
[2019-02-23] MEDS: BUDESONIDE 0.5 MG/2 ML INH IH SCH ×2 (06:22→18:44)
[2019-02-23 07:00] VITALS: BP 111/71
[2019-02-23] MEDS: CYCLOBENZAPRINE HCL 10 MG TABLET PO PRN (10:00)
[2019-02-23] MEDS: DOXYCYCLINE HYCLATE 100 MG TABLET PO SCH ×2 (10:00→21:08)
[2019-02-23] MEDS: ACETAMINOPHEN EXTRA STRENGTH 500 MG TABLET PO PRN (10:08)
[2019-02-23 11:00] VITALS: BP 117/72
[2019-02-23] MEDS ORDERED: HYDROXYZINE HCL 25 MG TABLET PO PRN (12:45)
[2019-02-23 16:00] VITALS: BP 117/62
[2019-02-23] MEDS: DILTIAZEM HCL 60 MG TABLET PO SCH (16:48)
[2019-02-23 19:00] VITALS: BP 107/69
[2019-02-23] MEDS: TRAZODONE HCL 100 MG TABLET PO SCH (21:08)
[2019-02-24] VITALS: BP 99/67
[2019-02-24] MEDS: IPRATROPIUM/ALBUTEROL SULFATE 3 ML SOLUTION IH SCH ×6 (01:39→21:40)
[2019-02-24 04:00] VITALS: BP 86/60
[2019-02-24] MEDS: CEFTRIAXONE SODIUM 1 GM IVP SCH ×2 (06:22→17:24)
[2019-02-24] MEDS: BUDESONIDE 0.5 MG/2 ML INH IH SCH ×2 (06:26→19:00)
[2019-02-24] MEDS: INSULIN R PO SS2 SQ SCH ×4 (06:26→20:50)
[2019-02-24] MEDS: DILTIAZEM HCL 60 MG TABLET PO SCH ×2 (06:39→16:30)
[2019-02-24] MEDS: LORAZEPAM 0.5 MG TABLET PO PRN (06:53)
[2019-02-24 07:00] VITALS: BP 97/65
[2019-02-24] MEDS: DOXYCYCLINE HYCLATE 100 MG TABLET PO SCH ×2 (09:55→20:53)
[2019-02-24] MEDS: PREDNISONE 20 MG TABLET PO SCH (09:55)
[2019-02-24] MEDS: LORATADINE 10 MG TABLET PO SCH (09:56)
[2019-02-24] MEDS: OLANZAPINE 5 MG TAB PO SCH (09:56)
[2019-02-24 12:00] VITALS: BP 103/67
[2019-02-24] MEDS: CYCLOBENZAPRINE HCL 10 MG TABLET PO PRN (14:43)
--- NOTE | 2019-02-24 15:26 | NUR ---
OBSERVED PATIENT AMBULATING FROM ROOM TO COFFEE AREA TO ROOM WITH SW. INFORMED NURSING PT TO FOLLOW UP ON MONDAY TO NEED FOR PT EVAL. Addendum: 02/24/19 at 1528 by KENYETTA LOPEZ PT Amended: Links added.
[2019-02-24 16:00] VITALS: BP 114/66
[2019-02-24 19:00] VITALS: BP 111/76
[2019-02-24] MEDS: TRAZODONE HCL 100 MG TABLET PO SCH (20:53)
[2019-02-25] VITALS (7 sets, daily range): BP systolic 103–123; BP diastolic 58–81
[2019-02-25] MEDS: IPRATROPIUM/ALBUTEROL SULFATE 3 ML SOLUTION IH SCH ×6 (01:43→22:17)
[2019-02-25] MEDS: CEFTRIAXONE SODIUM 1 GM IVP SCH ×2 (06:05→18:05)
[2019-02-25] MEDS: BUDESONIDE 0.5 MG/2 ML INH IH SCH ×2 (06:22→18:34)
[2019-02-25] MEDS: INSULIN R PO SS2 SQ SCH ×4 (06:36→20:44)
[2019-02-25] MEDS: DILTIAZEM HCL 60 MG TABLET PO SCH ×2 (06:51→18:05)
[2019-02-25 06:56] LABS: MEAN CORPUSCULAR HEMOGLOBIN 28.7 pg (27.0-33.0); PLATELET COUNT (AUTO) 174 K/uL (130-400); RED BLOOD CELL COUNT(AUTO) 4.71 MIL/uL (4.50-6.20); RED CELL DISTRIBUTION WIDTH 16.3 % (11.0-15.5); WHITE BLOOD COUNT (AUTO) 8.8 K/uL (4.8-10.8)
[2019-02-25 07:09] LABS: ALBUMIN 2.7 g/dL (3.5-5.0); BILIRUBIN,TOTAL 0.2 mg/dL (0.2-1.0); POTASSIUM 3.8 mmol/L (3.5-5.1); TOTAL PROTEIN, SERUM 5.7 g/dL (6.0-8.3)
[2019-02-25] MEDS: PREDNISONE 20 MG TABLET PO SCH (09:11)
[2019-02-25] MEDS: OLANZAPINE 5 MG TAB PO SCH (09:11)
[2019-02-25] MEDS: LORATADINE 10 MG TABLET PO SCH (09:11)
[2019-02-25] MEDS: DOXYCYCLINE HYCLATE 100 MG TABLET PO SCH ×2 (09:11→20:43)
[2019-02-25] MEDS: TRAZODONE HCL 100 MG TABLET PO SCH (20:43)
[2019-02-26] MEDS: IPRATROPIUM/ALBUTEROL SULFATE 3 ML SOLUTION IH SCH ×6 (01:58→21:43)
[2019-02-26 03:05] VITALS: BP 114/74
[2019-02-26] MEDS: CEFTRIAXONE SODIUM 1 GM IVP SCH ×2 (04:40→16:33)
[2019-02-26] MEDS: INSULIN R PO SS2 SQ SCH ×4 (05:22→20:24)
[2019-02-26] MEDS: DILTIAZEM HCL 60 MG TABLET PO SCH ×2 (06:31→16:33)
[2019-02-26] MEDS: BUDESONIDE 0.5 MG/2 ML INH IH SCH ×2 (06:53→18:08)
[2019-02-26 08:00] VITALS: BP 107/63
[2019-02-26] MEDS: PREDNISONE 20 MG TABLET PO SCH (09:10)
[2019-02-26] MEDS: OLANZAPINE 5 MG TAB PO SCH (09:10)
[2019-02-26] MEDS: DOXYCYCLINE HYCLATE 100 MG TABLET PO SCH ×2 (09:10→20:20)
[2019-02-26] MEDS: LORATADINE 10 MG TABLET PO SCH (09:10)
[2019-02-26] MEDS: CYCLOBENZAPRINE HCL 10 MG TABLET PO PRN ×2 (09:19→20:20)
[2019-02-26 12:00] VITALS: BP 101/62
[2019-02-26] MEDS: LORAZEPAM 0.5 MG TABLET PO PRN (14:41)
[2019-02-26 16:00] VITALS: BP 104/67
[2019-02-26] MEDS: METHYLPREDNISOLONE SOD SUCC 40MG/ML 1ML IVP SCH (16:33)
[2019-02-26] MEDS: ONDANSETRON HCL 4 MG/2 ML VIAL IVP PRN (16:38)
[2019-02-26] MEDS: ACETYLCYSTEINE 20% 200MG/ML 4ML VIAL IH SCH ×2 (18:07→21:43)
[2019-02-26 19:05] VITALS: BP 110/69
[2019-02-26] MEDS: TRAZODONE HCL 100 MG TABLET PO SCH (20:20)
[2019-02-26] MEDS ORDERED: INSULIN GLARGINE 100 UNITS/ML 10 ML VIAL SQ SCH (21:00)
[2019-02-26 23:38] VITALS: BP 108/66
[2019-02-27] MEDS: METHYLPREDNISOLONE SOD SUCC 40MG/ML 1ML IVP SCH ×3 (01:07→14:25)
[2019-02-27] MEDS: ONDANSETRON HCL 4 MG/2 ML VIAL IVP PRN (01:13)
[2019-02-27] MEDS: IPRATROPIUM/ALBUTEROL SULFATE 3 ML SOLUTION IH SCH ×4 (01:56→13:19)
[2019-02-27] MEDS: ACETYLCYSTEINE 20% 200MG/ML 4ML VIAL IH SCH ×4 (01:56→13:22)
[2019-02-27 03:15] VITALS: BP 116/73
[2019-02-27] MEDS: INSULIN R PO SS2 SQ SCH ×3 (05:40→17:20)
[2019-02-27 05:55] LABS: POTASSIUM 4.6 mmol/L (3.5-5.1)
[2019-02-27] MEDS: CEFTRIAXONE SODIUM 1 GM IVP SCH ×2 (06:14→17:12)
[2019-02-27] MEDS: DILTIAZEM HCL 60 MG TABLET PO SCH ×2 (06:15→17:13)
[2019-02-27] MEDS: BUDESONIDE 0.5 MG/2 ML INH IH SCH (07:06)
[2019-02-27 07:30] VITALS: BP 113/61
[2019-02-27] MEDS: LORAZEPAM 0.5 MG TABLET PO PRN (09:10)
[2019-02-27] MEDS: OLANZAPINE 5 MG TAB PO SCH (09:11)
[2019-02-27] MEDS: DOXYCYCLINE HYCLATE 100 MG TABLET PO SCH (09:11)
[2019-02-27] MEDS: LORATADINE 10 MG TABLET PO SCH (09:11)
[2019-02-27 11:00] VITALS: BP 96/54
[2019-02-27] MEDS ORDERED: BUDE0.5A3 IH (12:02)
[2019-02-27] MEDS ORDERED: METH40VI31 IVP (12:02)
[2019-02-27] MEDS ORDERED: DOXY100T2 PO (12:02)
[2019-02-27] MEDS ORDERED: IPRA3AMP24 IH (12:02)
[2019-02-27] MEDS ORDERED: DILT60TA3 PO (12:02)
[2019-02-27] MEDS ORDERED: INSLAN SQ (12:02)
[2019-02-27] MEDS ORDERED: CEFT1VIA14 IVP (12:02)
--- NOTE | 2019-02-27 15:06 | NUR ---
RDSCREEN - LOS X 6 Pt admitted for COPD Exac. Pt tolerating 75gm CCD with no report of GI distress and PO intake at 100%. Pt LBM 02/26/19. Pt monitored labs: Glu 153, Alb 2.7. Pt BMI (29.3), overweight. No overt nutrition concerns at this time. RD will continue to monitor. Please notify RD as nutritional concerns arise. Thank you. Addendum: 02/27/19 at [address] RD Amended: Links added.
[2019-02-27 16:00] VITALS: BP 105/68
--- NOTE | 2019-02-27 18:19 | NUR ---
PATIENT DISCHARGE PATIENT DISCHARGED TO [facility]. IV DISCONTINUED, CATHLON INTACT, BLEEDING CONTROLLED, PATIENT TOLERATED WITHOUT INCIDENT. REPORT CALLED TO LALIT VELAZQUEZ AT APPROX 1805 HOURS. REQUESTED VAN TRANSPORTATION WITH WHEELCHAIR AND O2.
[2019-03-02] MEDS ORDERED: ERGOCALCIFEROL (VITAMIN D2) 50,000 UNIT CAPSULE PO SCH (09:00)
== END 2019-02-27 18:40 | DRG 189 ==
LOC: EDH 16:09 → OBSVTOIN 18:44 → EDHIP 18:44 → 3BH 20:51
PROVIDERS: ADMIT Internal Medicine; ATTEND Internal Medicine
DX: J96.21 Acute and chronic respiratory failure with hypoxia (principal); J44.1 Chronic obstructive pulmonary disease with (acute) exacerbation; J44.0 Chronic obstructive pulmonary disease with (acute) lower respiratory infection; J98.11 Atelectasis; J20.9 Acute bronchitis, unspecified; I50.9 Heart failure, unspecified; I11.0 Hypertensive heart disease with heart failure; E66.9 Obesity, unspecified; E11.9 Type 2 diabetes mellitus without complications; F41.9 Anxiety disorder, unspecified; Z68.29 Body mass index [BMI] 29.0-29.9, adult; Z88.8 Allergy status to other drugs, medicaments and biological substances; Z74.01 Bed confinement status; Z87.891 Personal history of nicotine dependence; Z93.3 Colostomy status; Z87.01 Personal history of pneumonia (recurrent)
CPT/HCPCS: 36415; 71045; 71250; 74150; 80048; 80053; 81001; 82150; 82550; 82948; 83605; 83690; 83880; 84484; 85025; 85027; 87040; 87804; 93005; 94640; 94664; 97039; G0378; J0456; J0696; J1815; J2405; J2920; J2930; J7608

== ENCOUNTER 2019-03-13 09:56 | Emergency (ER) | payer OTHER ==
[~2019-03-13 09:56] MED LIST changes: +BUDE0.5A3 IH; +CEFT1VIA14 IVP; -DILT120T PO; +DILT60TA3 PO; +DOXY100T2 PO; +INSLAN SQ; +IPRA3AMP24 IH; -LEVO500T2 PO; +METH40VI31 IVP; -PRED5TAB44 PO
[2019-03-13 10:42] LABS: BASOPHILS % (AUTO) 0.7 % (0.0-5.0); EOSINOPHILS % (AUTO) 0.5 % (0.0-8.0); HEMATOCRIT 40.5 % (42-54); LYMPHOCYTES % (AUTO) 16.5 % (21.0-51.0); MEAN CORPUSCULAR HEMOGLOBIN 29.2 pg (27.0-33.0); MEAN CORPUSCULAR HGB CONC 33.6 g/dL (32.0-36.0); MEAN CORPUSCULAR VOLUME 86.7 fL (79-99); MONOCYTES % (AUTO) 9.3 % (3.0-13.0); PLATELET COUNT (AUTO) 127 K/uL (130-400); RED BLOOD CELL COUNT(AUTO) 4.67 MIL/uL (4.50-6.20); RED CELL DISTRIBUTION WIDTH 17.6 % (11.0-15.5); WHITE BLOOD COUNT (AUTO) 10.1 K/uL (4.8-10.8)
[2019-03-13 10:48] LABS: CREATININE 0.9 mg/dL (0.5-1.5); POTASSIUM 3.7 mmol/L (3.5-5.1)
[2019-03-13] MEDS ORDERED: MAGNESIUM OXIDE 400 MG TABLET PO ONE (10:53)
[2019-03-13] MEDS ORDERED: POTASSIUM CHLORIDE 20 MEQ ERTAB PO ONE (10:53)
[2019-03-13 10:54] LABS: ALBUMIN 3.2 g/dL (3.5-5.0); MAGNESIUM 2.1 mg/dL (1.80-2.40); PHOSPHORUS 3.7 mg/dL (2.5-4.9); TOTAL PROTEIN, SERUM 6.2 g/dL (6.0-8.3)
[2019-03-13] MEDS ORDERED: HYDROCODONE/ACETAMINOPHEN 5/325 MG TAB ONE (10:54)
[2019-03-13] MEDS ORDERED: HYDROMORPHONE 1 MG/1 ML AMP ONE (11:58)
== END 2019-03-13 12:43 | disposition home or self-care (01) ==
LOC: EDH 09:56
DX: R25.2 Cramp and spasm (principal); I11.0 Hypertensive heart disease with heart failure; I50.9 Heart failure, unspecified; E11.9 Type 2 diabetes mellitus without complications; J45.909 Unspecified asthma, uncomplicated; I25.2 Old myocardial infarction; F32.9 Major depressive disorder, single episode, unspecified; F41.9 Anxiety disorder, unspecified; Z90.49 Acquired absence of other specified parts of digestive tract; Z88.8 Allergy status to other drugs, medicaments and biological substances
CPT/HCPCS: 36415; 80053; 83735; 84100; 85025; 96374; 99284; J1170

== ENCOUNTER 2019-05-19 22:25 | Inpatient (IN) | payer OTHER ==
[~2019-05-19] VITALS: Ht 182.9 cm; Wt 101.2 kg
[~2019-05-19 22:25] MED LIST changes: -CEFT1VIA14 IVP; -DOXY100T2 PO; -IPRA3AMP24 IH; -METH40VI31 IVP
[2019-05-19 23:35] LABS: BASOPHILS % (AUTO) 1.4 % (0.0-5.0); EOSINOPHILS % (AUTO) 5.7 % (0.0-8.0); HEMATOCRIT 37.3 % (42-54); LYMPHOCYTES % (AUTO) 20.9 % (21.0-51.0); MEAN CORPUSCULAR HEMOGLOBIN 30.1 pg (27.0-33.0); MEAN CORPUSCULAR HGB CONC 34.4 g/dL (32.0-36.0); MEAN CORPUSCULAR VOLUME 87.6 fL (79-99); MONOCYTES % (AUTO) 14.5 % (3.0-13.0); NEUTROPHILS % (AUTO) 57.5 % (40.0-77.0); PLATELET COUNT (AUTO) 167 K/uL (130-400); RED BLOOD CELL COUNT(AUTO) 4.25 MIL/uL (4.50-6.20); RED CELL DISTRIBUTION WIDTH 16.3 % (11.0-15.5)
[2019-05-19 23:45] LABS: CREATININE 1.1 mg/dL (0.5-1.5); POTASSIUM 3.8 mmol/L (3.5-5.1)
[2019-05-19 23:47] LABS: INR 0.98 (0.85-1.15); PROTHROMBIN TIME 10.3 SEC (9.6-11.6)
[2019-05-19 23:57] LABS: ALBUMIN 3.1 g/dL (3.5-5.0); BILIRUBIN,TOTAL 0.4 mg/dL (0.2-1.0); MAGNESIUM 1.7 mg/dL (1.80-2.40); THYROID STIMULATING HORMONE 0.87 uIU/mL (0.36-3.74); TOTAL PROTEIN, SERUM 6.1 g/dL (6.0-8.3)
[2019-05-20 00:10] LABS: BILIRUBIN,URINE Negative (NEGATIVE); COLOR,URINE Yellow (YELLOW); GLUCOSE, URINE (UA) Negative (NEGATIVE); KETONES,URINE Negative (NEGATIVE); LEUKOCYTE ESTERASE ,URINE Negative (NEGATIVE); NITRATE,URINE Negative (NEGATIVE); OCCULT BLOOD,URINE Negative (NEGATIVE); PROTEIN,URINE Negative (NEGATIVE)
[2019-05-20 00:21] LABS: APPEARANCE,URINE CLEAR (CLEAR)
[2019-05-20] MEDS ORDERED: ASPIRIN 81MG TAB.CHEW ONE (01:02)
[2019-05-20] MEDS ORDERED: MAGNESIUM OXIDE 400 MG TABLET PO ONE (01:02)
[2019-05-20 01:25] LABS: AMPHET/METH SCREEN,URINE NEGATIVE (NEGATIVE); BARBITURATE SCREEN, URINE NEGATIVE (NEGATIVE); BENZODIAZEPINES SCREEN,URINE NEGATIVE (NEGATIVE); CANNABINOID SCREEN,URINE NEGATIVE (NEGATIVE); COCAINE SCREEN,URINE POSITIVE (NEGATIVE); OPIATE SCREEN,URINE NEGATIVE (NEGATIVE); PHENCYCLIDINE SCREEN,URINE NEGATIVE (NEGATIVE)
[2019-05-20] MEDS ORDERED: IOHEXOL-350 75 ML VIAL IV ONE (01:28)
[2019-05-20] MEDS ORDERED: LABETALOL HCL 5 MG/ML 20ML VIAL IV PRN (09:45)
[2019-05-20] MEDS ORDERED: ACETAMINOPHEN 325 MG TAB PO PRN (09:45)
[2019-05-20] MEDS ORDERED: ALPRAZOLAM 0.25 MG TABLET PO PRN (09:45)
[2019-05-20] MEDS ORDERED: ONDANSETRON HCL 4 MG/2 ML VIAL IVP PRN (09:45)
[2019-05-20] MEDS ORDERED: MORPHINE SULFATE 2 MG/ML 1ML SYG ONE ×2 (15:31→20:16)
--- NOTE | 2019-05-20 19:30 | NUR ---
REPORT RECEIVED FROM WALDO RADER.
--- NOTE | 2019-05-20 20:00 | NUR ---
PT ARRIVED AT THIS TIME. NO DISTRESS NOTED. ROOM AIR. UPPER LOBES CLEAR. LEFT SIDED LOWER LOBES HAS CRACKLES/DIMINISHED. PT HAS DRY COUGH. COLOSTOMY TO RLQ. CHANGED. HAD SOFT, BROWN STOOL IN PLACE. PT IN NO DISTRESS. ABLE TO AMBULATE WITH ASSIST. HAD SCAR TO UPPER ABDOMINAL AREA FROM HERNIA REPAIR AND OPEN HEART CHEST INCISION IN PLACE. PT MEDICATION IN SYSTEM. STATES HAD LEFT ARM WEAKNESS AND LEFT LEG WEAKNESS UPON ARRIVAL TO HOSPITAL. HAD BEEN EXPERIENCING A HEADACHE FOR SEVERAL HOURS AT A TIME.
[2019-05-20 20:37] VITALS: BP 121/83
[2019-05-20] MEDS ORDERED: CHOL500051 PO (22:21)
[2019-05-20] MEDS: IPRATROPIUM/ALBUTEROL SULFATE 3 ML SOLUTION IH PRN (22:21)
[2019-05-20] MEDS ORDERED: DULO60CA64 PO (22:21)
[2019-05-20] MEDS ORDERED: FLUO40CA49 PO (22:21)
[2019-05-20 23:12] VITALS: BP 129/79
[2019-05-21] MEDS: MORPHINE SULFATE 2 MG/ML 1ML SYG IVP PRN ×3 (00:07→09:03)
[2019-05-21 03:42] VITALS: BP 125/95
[2019-05-21 03:59] LABS: HEMATOCRIT 39.3 % (42-54); MEAN CORPUSCULAR HEMOGLOBIN 30.3 pg (27.0-33.0); MEAN CORPUSCULAR HGB CONC 34.5 g/dL (32.0-36.0); NUCLEATED RED BLOOD CELLS 0.1 % (0.0-0.19); PLATELET COUNT (AUTO) 158 K/uL (130-400); RED BLOOD CELL COUNT(AUTO) 4.47 MIL/uL (4.50-6.20); RED CELL DISTRIBUTION WIDTH 16.6 % (11.0-15.5)
[2019-05-21 04:09] LABS: CREATININE 0.9 mg/dL (0.5-1.5); POTASSIUM 3.6 mmol/L (3.5-5.1)
[2019-05-21 04:37] LABS: BASOPHILS % (MANUAL) 1 % (0-2); EOSINOPHILS % (MANUAL) 11 % (1-6); LYMPHOCYTES % (MANUAL) 24 % (22-44); MAN.DIFF COMMENT-IMPRESSION MANUAL DIFFERENTIAL; MONOCYTES % (MANUAL) 8 % (2-9); SEGMENTED NEUTROPHILS % 56 % (40-70)
[2019-05-21 04:38] LABS: PLATELET MORPHOLOGY COMMENT ADEQUATE
[2019-05-21 07:00] VITALS: BP 119/74
[2019-05-21] MEDS: IPRATROPIUM/ALBUTEROL SULFATE 3 ML SOLUTION IH PRN ×2 (07:24→18:32)
[2019-05-21] MEDS: ASPIRIN 325 MG TABLET PO SCH (08:57)
[2019-05-21] MEDS ORDERED: HYDROXYZINE HCL 25 MG TABLET PO PRN (09:45)
[2019-05-21] MEDS ORDERED: CHOLECALCIFEROL 5000 UNIT PO SCH (09:55)
[2019-05-21 11:00] VITALS: BP 116/82
[2019-05-21] MEDS: TRAMADOL /APAP 37.5MG/325MG TAB PO PRN ×2 (12:00→20:24)
[2019-05-21] MEDS ORDERED: IPRATROPIUM/ALBUTEROL SULFATE 3 ML SOLUTION IH PRN (13:45)
--- NOTE | 2019-05-21 13:47 | NUR ---
VENICE PLAN VISITED WITH PATIENT. MINI SIGNED FOR [facility]. INFO SENT SINCE HE SAID HE WAS GOING TO BE GOING TO A NEW INSURANCE GOT NELLY ID [id number]. PHYSICAL ADDRESS [address] [place] [id number]. PATIENT LIVES ALONE. ASKED ABOUT FRIEND OR FAMILY TO PLACE OF NOTIFY SAID DID NOT WANT TO GIVE NOT ANY ONE REALLY AVAILABLE. Addendum: 05/21/19 at 1351 by MELANY AKINS RN CM Amended: Links added.
[2019-05-21] MEDS ORDERED: KETOROLAC TROMETHAMINE 15MG/ML IM SCH (14:35)
[2019-05-21 15:00] VITALS: BP 113/74
[2019-05-21] MEDS ORDERED: METHYLPREDNISOLONE SOD SUCC 125MG/2ML VIAL IVP SCH (15:00)
[2019-05-21] MEDS: FLUOXETINE HCL 20 MG CAPSULE PO SCH (15:10)
[2019-05-21] MEDS: DILTIAZEM HCL 60 MG TABLET PO SCH (15:10)
[2019-05-21] MEDS: OLANZAPINE ODT 5 MG TAB PO SCH (15:10)
--- NOTE | 2019-05-21 15:21 | NUR ---
DC PLAN VANDANA CALLED SAID THAT PATIENT IS NO LONGER WELLMED. I HAD CHECKED WITH REGISTRATION SAID PATIENT WAS. GAVE HER THE [employer] ID I GOT FROM [employer] FOR ADV PLANS NUMBER GIVEN BY PATIENT. SENT [facility] A MESSAGE TO SEE IF HE SHOWS UP IN THEIR SYSTEM AND IF HE HAS DAYS. CALLED DIRECTOR TO LET HER KNOW OF DELAY. Addendum: 05/21/19 at 1523 by MELANY AKINS RN Amended: Links added.
[2019-05-21] MEDS: BUDESONIDE 0.5 MG/2 ML INH IH SCH (18:42)
[2019-05-21 18:57] VITALS: BP 104/70
--- NOTE | 2019-05-21 20:08 | NUR ---
ASSESSMENT PATIENT IS RESTING IN BED. ALERT AND ORIENTED X4. PATIENT COMPLAINS OF PAIN AT THIS TIME AND WILL COVER WITH PRN MEDICATION THAT IS AVAILABLE. NO SHORTNESS OF BREATH. NO SIGNS OF DISTRESS. CALL LIGHT WITHIN REACH. BEDSIDE TABLE WITHIN REACH. NO COMPLAINTS, QUESTIONS, CONCERNS, OR NEEDS AT THIS TIME.
[2019-05-21] MEDS: DULOXETINE HCL 30 MG CAP PO SCH (20:24)
[2019-05-21 23:04] VITALS: BP 119/80
--- NOTE | 2019-05-22 | NUR ---
ASSESSMENT PATIENT IS RESTING IN BED. PATIENT WILL OCCASIONALLY AMBULATE IN HALLWAY WITH NO ISSUES. NO COMPLAINTS OF PAIN AT THIS TIME. NO SHORTNESS OF BREATH. NO SIGNS OF DISTRESS. PATIENTS CALL LIGHT AND PERSONAL BELONGINGS ARE WITHIN REACH. NO NEEDS AT THIS TIME.
[2019-05-22] MEDS: TRAMADOL /APAP 37.5MG/325MG TAB PO PRN ×4 (02:06→23:11)
[2019-05-22 03:15] VITALS: BP 121/83
--- NOTE | 2019-05-22 04:00 | NUR ---
ASSESSMENT PATIENT IS RESTING IN BED. NO SIGNS OF DISTRESS. NO COMPLAINTS OF PAIN. NO SHORTNESS OF BREATH. PATIENTS CALL LIGHT IS WITHIN REACH. VOICES NO CONCERNS, QUESTIONS, OR NEEDS AT THIS TIME.
[2019-05-22 04:14] LABS: CREATININE 0.9 mg/dL (0.5-1.5); MAGNESIUM 2.9 mg/dL (1.80-2.40); POTASSIUM 4.8 mmol/L (3.5-5.1)
[2019-05-22] MEDS: BUDESONIDE 0.5 MG/2 ML INH IH SCH ×2 (07:04→18:39)
[2019-05-22] MEDS: IPRATROPIUM/ALBUTEROL SULFATE 3 ML SOLUTION IH PRN ×2 (07:04→18:39)
[2019-05-22] MEDS: FLUOXETINE HCL 20 MG CAPSULE PO SCH (08:05)
[2019-05-22] MEDS: ASPIRIN 325 MG TABLET PO SCH (08:05)
[2019-05-22] MEDS: LORATADINE 10 MG TABLET PO SCH (08:05)
[2019-05-22] MEDS: OLANZAPINE ODT 5 MG TAB PO SCH (08:06)
[2019-05-22] MEDS: DILTIAZEM HCL 60 MG TABLET PO SCH ×2 (08:06→16:17)
[2019-05-22 08:22] VITALS: BP 131/60
[2019-05-22] MEDS: ATORVASTATIN CALCIUM 40 MG TABLET PO SCH (11:05)
[2019-05-22] MEDS: PANTOPRAZOLE SODIUM 40 MG TABLET.DR PO SCH (11:06)
--- NOTE | 2019-05-22 11:48 | NUR ---
DC PLAN VISITED WITH PATIENT. PATIENT SAYS FEELING BETTER NO LONGER WANTS TO GO TO SNF. SAID FEELS SAFE TO GO HOME. LET KATINA ROSS KNOW OF CANCELATION. LET NURSE KNOW. DC PLAN FOR HOME. Addendum: 05/22/19 at 1150 by MELANY AKINS RN CM Amended: Links added.
[2019-05-22 12:39] VITALS: BP 116/72
[2019-05-22 16:31] VITALS: BP 107/65
[2019-05-22 18:47] VITALS: BP 118/80
[2019-05-22] MEDS: DULOXETINE HCL 30 MG CAP PO SCH (20:42)
[2019-05-22 23:00] VITALS: BP 105/61
[2019-05-23 03:28] VITALS: BP 119/77
[2019-05-23 04:08] LABS: BASOPHILS % (AUTO) 0.5 % (0.0-5.0); EOSINOPHILS % (AUTO) 0.6 % (0.0-8.0); HEMATOCRIT 38.7 % (42-54); LYMPHOCYTES % (AUTO) 15.5 % (21.0-51.0); MEAN CORPUSCULAR HEMOGLOBIN 30.3 pg (27.0-33.0); MEAN CORPUSCULAR HGB CONC 33.9 g/dL (32.0-36.0); MEAN CORPUSCULAR VOLUME 89.4 fL (79-99); MONOCYTES % (AUTO) 10.7 % (3.0-13.0); NEUTROPHILS % (AUTO) 72.7 % (40.0-77.0); PLATELET COUNT (AUTO) 198 K/uL (130-400); RED BLOOD CELL COUNT(AUTO) 4.33 MIL/uL (4.50-6.20); RED CELL DISTRIBUTION WIDTH 16.6 % (11.0-15.5); WHITE BLOOD COUNT (AUTO) 10.8 K/uL (4.8-10.8)
[2019-05-23 04:24] LABS: MAGNESIUM 1.9 mg/dL (1.80-2.40); PHOSPHORUS 2.8 mg/dL (2.5-4.9); POTASSIUM 4.1 mmol/L (3.5-5.1)
[2019-05-23] MEDS: IPRATROPIUM/ALBUTEROL SULFATE 3 ML SOLUTION IH PRN (06:33)
[2019-05-23] MEDS: DILTIAZEM HCL 60 MG TABLET PO SCH (06:34)
[2019-05-23] MEDS: BUDESONIDE 0.5 MG/2 ML INH IH SCH (07:04)
[2019-05-23 07:39] VITALS: BP 122/84
[2019-05-23] MEDS: ASPIRIN 325 MG TABLET PO SCH (08:15)
[2019-05-23] MEDS: LORATADINE 10 MG TABLET PO SCH (08:15)
[2019-05-23] MEDS: ATORVASTATIN CALCIUM 40 MG TABLET PO SCH (08:15)
[2019-05-23] MEDS: OLANZAPINE ODT 5 MG TAB PO SCH (08:15)
[2019-05-23] MEDS: PANTOPRAZOLE SODIUM 40 MG TABLET.DR PO SCH (08:16)
[2019-05-23] MEDS: FLUOXETINE HCL 20 MG CAPSULE PO SCH (08:16)
[2019-05-23] MEDS: TRAMADOL /APAP 37.5MG/325MG TAB PO PRN (08:16)
--- NOTE | 2019-05-23 12:12 | NUR ---
DC INSTRUCTIONS/INFORMATION GIVEN TO PATIENT. TEACH BACK METHOD USED TO EDUCATE PATIENT ON DIET, S/S TO MONITOR FOR, WHEN TO CALL MD, NEWLY PRESCRIBED MED, AND F/U APPOINTMENT. PRESCRIPTION FOR ASPIRIN AND ATORVASTATIN INCLUDED IN D/C PACKET. PIV REMOVED. TELE PACK REMOVED AND RETURNED. ALL BELONGINGS PACKED. PATIENT IS SAFELY WHEELED TO HIS VEHICLE BY YULI EARLY.
== END 2019-05-23 12:15 | disposition home or self-care (01) | DRG 69 ==
LOC: EDH 22:25 → OBSVTOIN 05-20 08:50 → EDHIP 05-20 08:50 → 2AH 05-20 20:06
PROVIDERS: ADMIT Internal Medicine Pulmonary Disease; ATTEND Internal Medicine Pulmonary Disease
DX: G45.9 Transient cerebral ischemic attack, unspecified (principal); J96.21 Acute and chronic respiratory failure with hypoxia; I50.9 Heart failure, unspecified; I11.0 Hypertensive heart disease with heart failure; E11.9 Type 2 diabetes mellitus without complications; F14.10 Cocaine abuse, uncomplicated; F32.9 Major depressive disorder, single episode, unspecified; F41.9 Anxiety disorder, unspecified; G89.29 Other chronic pain; J44.9 Chronic obstructive pulmonary disease, unspecified; M54.12 Radiculopathy, cervical region; G47.33 Obstructive sleep apnea (adult) (pediatric); Z87.891 Personal history of nicotine dependence; Z87.01 Personal history of pneumonia (recurrent); Z93.3 Colostomy status; Z99.81 Dependence on supplemental oxygen; Z79.899 Other long term (current) drug therapy; Z88.0 Allergy status to penicillin; Z88.8 Allergy status to other drugs, medicaments and biological substances; Z80.1 Family history of malignant neoplasm of trachea, bronchus and lung
CPT/HCPCS: 36415; 70450; 70496; 70498; 70544; 70547; 70551; 71045; 72141; 73030; 80048; 80053; 80305; 81003; 82550; 82948; 83721; 83735; 84100; 84443; 84484; 85025; 85610; 85651; 85730; 93005; 93880; 94640; 94664; 97039; A5061; C8929; G0378; J1885; J2405; J2930; Q9967

== ENCOUNTER 2020-08-28 18:02 | Emergency (ER) | payer OTHER ==
[~2020-08-28 18:02] MED LIST changes: +CHOL500051 PO; +DULO60CA64 PO; -ERGO800010 PO; +FLUO40CA49 PO; -INSLAN SQ; -LORA0.5T2 PO
[2020-08-28] MEDS ORDERED: DEXAMETHASONE SOD PHOSPHATE 10MG/ML 1ML VIAL ONE (19:12)
[2020-08-28] MEDS ORDERED: CEFTRIAXONE SODIUM 1 GM ONE (19:13)
[2020-08-28] MEDS ORDERED: ASPIRIN 325 MG TABLET ONE (19:13)
[2020-08-28] MEDS ORDERED: AZITHROMYCIN 250 MG TABLET PO ONE (19:14)
[2020-08-28] MEDS ORDERED: ALBUTEROL INHALER 90MCG/INH IH ONE (19:15)
[2020-08-28 19:16] LABS: BASOPHILS % (AUTO) 0.4 % (0.0-5.0); EOSINOPHILS % (AUTO) 5.7 % (0.0-8.0); HEMATOCRIT 41.3 % (42-54); LYMPHOCYTES % (AUTO) 14.7 % (21.0-51.0); MEAN CORPUSCULAR HGB CONC 32.7 g/dL (32.0-36.0); MEAN CORPUSCULAR VOLUME 88.8 fL (79-99); MONOCYTES % (AUTO) 9.7 % (3.0-13.0); NEUTROPHILS % (AUTO) 69.2 % (40.0-77.0); PLATELET COUNT (AUTO) 166 K/uL (130-400); RED BLOOD CELL COUNT(AUTO) 4.65 MIL/uL (4.50-6.20); RED CELL DISTRIBUTION WIDTH 14.1 % (11.0-15.5); WHITE BLOOD COUNT (AUTO) 6.8 K/uL (4.8-10.8)
[2020-08-28 19:30] LABS: CREATININE 0.9 mg/dL (0.5-1.5); POTASSIUM 3.7 mmol/L (3.5-5.1)
[2020-08-28 19:39] LABS: ALBUMIN 2.9 g/dL (3.5-5.0); BILIRUBIN,TOTAL 0.3 mg/dL (0.2-1.0); TOTAL PROTEIN, SERUM 6.3 g/dL (6.0-8.3)
[2020-08-28 19:42] LABS: INR 1.05 (0.85-1.15); PROTHROMBIN TIME 11.2 SEC (9.6-11.6); RAPID GROUP A STREP NEGATIVE (NEGATIVE)
[2020-08-28 19:43] LABS: PARTIAL THROMBOPLASTIN TIME 31.3 SEC (26.3-35.5)
[2020-08-28] MEDS ORDERED: ACETAMINOPHEN-CODEINE 300/30MG TAB ONE (19:46)
[2020-08-28 20:00] LABS: B-TYPE NATRIURETIC PEPTIDE 26 pg/mL (0-100)
== END 2020-08-28 20:54 | disposition home or self-care (01) ==
LOC: EEVIPCON 18:02 → EDH 18:02
DX: R06.02 Shortness of breath (principal); Z20.828 Contact with and (suspected) exposure to other viral communicable diseases; F41.9 Anxiety disorder, unspecified; J44.9 Chronic obstructive pulmonary disease, unspecified; I50.9 Heart failure, unspecified; F32.9 Major depressive disorder, single episode, unspecified; E78.5 Hyperlipidemia, unspecified; I10 Essential (primary) hypertension; E11.9 Type 2 diabetes mellitus without complications; I25.2 Old myocardial infarction; Z87.891 Personal history of nicotine dependence; Z88.2 Allergy status to sulfonamides; Z88.0 Allergy status to penicillin; Z88.1 Allergy status to other antibiotic agents
CPT/HCPCS: 36415; 71045; 80053; 82550; 83605; 83880; 84145; 84484; 85025; 85610; 85730; 87426; 87804 ×2; 87880; 93005; 96365; 96375; 99285; J0696; J1100

== ENCOUNTER 2020-12-10 03:25 | Emergency (ER) | payer OTHER ==
[2020-12-10] MEDS ORDERED: IPRATROPIUM/ALBUTEROL SULFATE 3 ML SOLUTION IH ONE (03:49)
[2020-12-10] MEDS ORDERED: METHYLPREDNISOLONE SOD SUCC 40MG/ML 1ML ONE (04:09)
[2020-12-10] MEDS ORDERED: ONDANSETRON HCL 4 MG/2 ML VIAL ONE (04:09)
== END 2020-12-10 04:30 | disposition home or self-care (01) ==
LOC: EDH 03:25
DX: J44.1 Chronic obstructive pulmonary disease with (acute) exacerbation (principal); I11.0 Hypertensive heart disease with heart failure; I50.9 Heart failure, unspecified; E11.9 Type 2 diabetes mellitus without complications; F32.9 Major depressive disorder, single episode, unspecified; F41.9 Anxiety disorder, unspecified; I25.2 Old myocardial infarction; Z88.0 Allergy status to penicillin; Z88.1 Allergy status to other antibiotic agents; Z88.8 Allergy status to other drugs, medicaments and biological substances; E66.9 Obesity, unspecified; Z98.890 Other specified postprocedural states
CPT/HCPCS: 94640; 96374; 96375; 99284; J2405; J2920

== ENCOUNTER 2020-12-18 03:42 | Emergency (ER) | payer OTHER ==
[2020-12-18 04:24] LABS: BASOPHILS % (AUTO) 0.6 % (0.0-5.0); EOSINOPHILS % (AUTO) 3.3 % (0.0-8.0); HEMATOCRIT 41.8 % (42-54); LYMPHOCYTES % (AUTO) 16.6 % (21.0-51.0); MEAN CORPUSCULAR HEMOGLOBIN 28.7 pg (27.0-33.0); MEAN CORPUSCULAR HGB CONC 32.8 g/dL (32.0-36.0); MEAN CORPUSCULAR VOLUME 87.4 fL (79-99); MONOCYTES % (AUTO) 10.2 % (3.0-13.0); NEUTROPHILS % (AUTO) 68.9 % (40.0-77.0); PLATELET COUNT (AUTO) 189 K/uL (130-400); RED BLOOD CELL COUNT(AUTO) 4.78 MIL/uL (4.50-6.20); RED CELL DISTRIBUTION WIDTH 14.6 % (11.0-15.5); WHITE BLOOD COUNT (AUTO) 9.9 K/uL (4.8-10.8)
[2020-12-18 04:33] LABS: CREATININE 1.3 mg/dL (0.5-1.5); POTASSIUM 3.5 mmol/L (3.5-5.1)
[2020-12-18 04:40] LABS: ALBUMIN 3.1 g/dL (3.5-5.0); BILIRUBIN,TOTAL 0.7 mg/dL (0.2-1.0); TOTAL PROTEIN, SERUM 6.4 g/dL (6.0-8.3)
[2020-12-18 04:46] LABS: B-TYPE NATRIURETIC PEPTIDE 8 pg/mL (0-100)
== END 2020-12-18 08:56 | disposition home or self-care (01) ==
LOC: EDH 03:42
DX: J44.9 Chronic obstructive pulmonary disease, unspecified (principal); F41.9 Anxiety disorder, unspecified; J45.909 Unspecified asthma, uncomplicated; I50.9 Heart failure, unspecified; F32.9 Major depressive disorder, single episode, unspecified; E11.9 Type 2 diabetes mellitus without complications; I10 Essential (primary) hypertension; Z88.8 Allergy status to other drugs, medicaments and biological substances; Z88.0 Allergy status to penicillin
CPT/HCPCS: 36415; 71045; 80053; 83880; 84484; 85025; 93005

== ENCOUNTER 2020-12-28 16:46 | Emergency (ER) | payer OTHER, MEDICARE ==
[2020-12-28 17:46] LABS: BASOPHILS % (AUTO) 0.4 % (0.0-5.0); EOSINOPHILS % (AUTO) 2.6 % (0.0-8.0); HEMATOCRIT 46.8 % (42-54); LYMPHOCYTES % (AUTO) 21.7 % (21.0-51.0); MEAN CORPUSCULAR HEMOGLOBIN 29.6 pg (27.0-33.0); MEAN CORPUSCULAR HGB CONC 33.3 g/dL (32.0-36.0); MEAN CORPUSCULAR VOLUME 88.8 fL (79-99); MONOCYTES % (AUTO) 11.2 % (3.0-13.0); NEUTROPHILS % (AUTO) 63.9 % (40.0-77.0); PLATELET COUNT (AUTO) 145 K/uL (130-400); RED BLOOD CELL COUNT(AUTO) 5.27 MIL/uL (4.50-6.20); RED CELL DISTRIBUTION WIDTH 14.7 % (11.0-15.5); WHITE BLOOD COUNT (AUTO) 5.3 K/uL (4.8-10.8)
[2020-12-28 17:55] LABS: CREATININE 1.1 mg/dL (0.5-1.5); POTASSIUM 3.9 mmol/L (3.5-5.1)
[2020-12-28 18:00] LABS: BILIRUBIN,TOTAL 0.5 mg/dL (0.2-1.0); TOTAL PROTEIN, SERUM 6.9 g/dL (6.0-8.3)
[2020-12-28] MEDS ORDERED: METHYLPREDNISOLONE SOD SUCC 125MG/2ML VIAL ONE (18:42)
[2020-12-28] MEDS ORDERED: ONDANSETRON HCL 4 MG/2 ML VIAL ONE (18:42)
[2020-12-28] MEDS ORDERED: MORPHINE SULFATE 2 MG/ML 1ML SYG ONE (18:43)
[2020-12-28] MEDS ORDERED: IPRATROPIUM/ALBUTEROL SULFATE 3 ML SOLUTION IH ONE (19:12)
== END 2020-12-28 20:49 | disposition home or self-care (01) ==
LOC: EDH 16:46
DX: J44.1 Chronic obstructive pulmonary disease with (acute) exacerbation (principal); Z20.822 Contact with and (suspected) exposure to COVID-19; I11.0 Hypertensive heart disease with heart failure; I50.9 Heart failure, unspecified; E11.9 Type 2 diabetes mellitus without complications; F41.9 Anxiety disorder, unspecified; F32.9 Major depressive disorder, single episode, unspecified; I25.2 Old myocardial infarction; Z88.0 Allergy status to penicillin; Z88.1 Allergy status to other antibiotic agents; Z88.8 Allergy status to other drugs, medicaments and biological substances; Z87.01 Personal history of pneumonia (recurrent)
CPT/HCPCS: 36415; 36600; 71045; 80053; 83605; 83880; 85025; 87040 ×2; 87426; 93005; 94640; 96374; 96375; 99285; J2405; J2930; U0003

== ENCOUNTER 2023-07-26 11:05 | Observation (INO) | payer MEDICARE, OTHER ==
[~2023-07-26] VITALS: Ht 182.9 cm; Wt 119.3 kg
[2023-07-26 11:55] LABS: BASOPHILS # (AUTO) 0.04 K/uL (0.00-0.20); BASOPHILS % (AUTO) 0.6 % (0.0-5.0); EOSINOPHILS # (AUTO) 0.37 K/uL (0.00-0.70); EOSINOPHILS % (AUTO) 5.3 % (0.0-8.0); HEMATOCRIT 51.6 % (42-54); IMMATURE GRANULOCYTE ABSOLUTE 0.03 K/uL (0-1); LYMPHOCYTES # (AUTO) 1.5 K/uL (1.0-4.8); LYMPHOCYTES % (AUTO) 21.6 % (21.0-51.0); MEAN CORPUSCULAR HEMOGLOBIN 30.2 pg (27.0-33.0); MEAN CORPUSCULAR HGB CONC 32.8 g/dL (32.0-36.0); MEAN CORPUSCULAR VOLUME 92.1 fL (79-99); MONOCYTES # (AUTO) 0.7 K/uL (0.1-1.0); MONOCYTES % (AUTO) 9.2 % (3.0-13.0); NEUTROPHILS # (AUTO) 4.4 K/uL (1.8-7.7); NEUTROPHILS % (AUTO) 62.9 % (40.0-77.0); PLATELET COUNT (AUTO) 214 K/uL (130-400); RED CELL DISTRIBUTION WIDTH 15.1 % (11.0-15.5)
[2023-07-26 11:58] LABS: APPEARANCE,URINE CLEAR (CLEAR); BILIRUBIN,URINE NEGATIVE (NEGATIVE); COLOR,URINE YELLOW (YELLOW); GLUCOSE, URINE (UA) NEGATIVE (NEGATIVE); KETONES,URINE NEGATIVE (NEGATIVE); LEUKOCYTE ESTERASE ,URINE NEGATIVE Leu/uL (NEGATIVE); NITRATE,URINE NEGATIVE (NEGATIVE); OCCULT BLOOD,URINE NEGATIVE (NEGATIVE); PH,URINE 5.5 (5.0-8.0); PROTEIN,URINE 20 mg/dL (NEGATIVE); UROBILINOGEN,URINE 0.2 mg/dL (0.2-1.0)
[2023-07-26] MEDS ORDERED: LACTATED RINGERS 1000ML IV STA (12:02)
[2023-07-26] MEDS: DICYCLOMINE HCL 20 MG TAB PO SCH (12:10)
[2023-07-26 12:14] LABS: ADD UA MICROSCOPIC YES
[2023-07-26 12:16] LABS: MUCUS,URINE MOD LPF (None Seen); RBC,URINE 0-1 /HPF (0-1); SQUAMOUS EPITHELIAL CELL,UR FEW /HPF (0-2)
[2023-07-26] MEDS ORDERED: KETOROLAC 15MG/ML VIAL (15MG/ML) IV ONE (12:30)
[2023-07-26] MEDS ORDERED: ONDANSETRON 4MG INJ IVP ONE (12:30)
[2023-07-26 12:34] LABS: ALBUMIN 3.5 g/dL (3.5-5.0); BILIRUBIN,TOTAL 0.6 mg/dL (0.2-1.0); CREATININE 1.2 mg/dL (0.5-1.5); POTASSIUM 4.5 mmol/L (3.5-5.1); TOTAL PROTEIN, SERUM 7.3 g/dL (6.0-8.3)
[2023-07-26 13:11] LABS: MAGNESIUM 1.9 mg/dL (1.80-2.40)
[2023-07-26] MEDS ORDERED: DEXAMETHASONE SOD PHOSPHATE 4 MG/ML 1ML VIAL IM ONE (15:30)
[2023-07-26] MEDS ORDERED: IPRATROPIUM/ALBUTEROL SULFATE 3 ML SOLUTION IH ONE (15:30)
[2023-07-26 15:35] VITALS: PULSE 68; RESP 18
[2023-07-26] MEDS ORDERED: DIPHENHYDRAMINE HCL 25 MG CAPSULE PO PRN (17:00)
[2023-07-26] MEDS ORDERED: MAG PO PRN ×3 (17:00)
[2023-07-26] MEDS ORDERED: SIMETH PO PRN ×3 (17:00)
[2023-07-26] MEDS ORDERED: BENZOCAINE/MENTH/CETYLPYRD CL 1 EACH LOZENGE MM PRN (17:00)
[2023-07-26] MEDS ORDERED: ALPRAZOLAM 0.5 MG TABLET PO PRN (17:00)
[2023-07-26] MEDS ORDERED: LOPERAMIDE HCL 2 MG CAP PO PRN (17:00)
[2023-07-26] MEDS ORDERED: GUAIFENESIN SUGAR-FREE 100 MG/5 ML UDCUP PO PRN (17:00)
[2023-07-26] MEDS ORDERED: DICYCLOMINE HCL PO PRN ×3 (17:00)
[2023-07-26] MEDS ORDERED: GLUCAGON 1MG KIT 1 MG ML IM PRN (17:00)
[2023-07-26] MEDS ORDERED: GUAIFENESIN-DM 200/20 MG 10 ML PO PRN (17:00)
[2023-07-26] MEDS ORDERED: VISC PO PRN ×3 (17:00)
[2023-07-26] MEDS ORDERED: DEXTROSE 50%-WATER 50 ML DISP.SYRIN IV PRN (17:00)
[2023-07-26] MEDS ORDERED: HYDROCODONE/ACETAMINOPHEN 5/325 MG TAB PO PRN (17:00)
[2023-07-26] MEDS ORDERED: DOCUSATE SODIUM 100 MG CAP PO PRN (17:00)
[2023-07-26] MEDS ORDERED: POTASSIUM CHLORIDE 10MEQ/100ML 100 ML IV PRN (17:00)
[2023-07-26] MEDS ORDERED: MAGNESIUM 2GM PREMIX 50ML 50 ML IV PRN (17:00)
[2023-07-26] MEDS ORDERED: NITROGLYCERIN 0.4 MG SL TAB SL PRN (17:00)
[2023-07-26] MEDS ORDERED: ALUM PO PRN ×3 (17:00)
[2023-07-26] MEDS ORDERED: ZOLPIDEM TARTRATE 5 MG TAB PO PRN (17:00)
[2023-07-26] MEDS ORDERED: ACETAMINOPHEN 325 MG TAB PO PRN ×3 (17:00)
[2023-07-26] MEDS ORDERED: KCL 20 MEQ ERTAB PO PRN (17:00)
[2023-07-26] MEDS ORDERED: LACTULOSE 20 GM/30 ML UDCUP PO PRN (17:00)
[2023-07-26] MEDS ORDERED: POTASSIUM CHLORIDE 10% ELIXIR 20 MEQ/15 ML UDCUP PO PRN (17:00)
[2023-07-26] MEDS ORDERED: POLYETHYLENE GLYCOL 3350 17 GM POWD.PACK PO PRN (17:00)
[2023-07-26] MEDS ORDERED: ARTIFICAL TEARS SOL 15 ML OP PRN (17:00)
[2023-07-26] MEDS ORDERED: MAG/ALUM/SIMETH 30 ML UDCUP PO PRN (17:00)
[2023-07-26] MEDS ORDERED: LIDOCAINE HCL 2% PO PRN ×3 (17:00)
[2023-07-26] MEDS ORDERED: LEVOFLOXACIN 750 MG/D5W 150ML BAG IV SCH (17:00)
[2023-07-26 17:19] VITALS: PULSE 86; RESP 18; O2SAT 99
[2023-07-26 17:21] LABS: ABG BASE EXCESS -6.9 mmol/L (-2.0-3.0); ABG HCO3 16.8 mmol/L (21.0-28.0); ABG OXYGEN SATURATION 97.5 % (95.0-99.0); ABG PCO2 30 mmHg (35-48); CARBON MONOXIDE 0.2; HHb 2.5; PO2, ARTERIAL BG 90.8 mmHg (83.0-108.0); VENT MODE, BG RA (ROOM AIR)
[2023-07-26] MEDS ORDERED: COMPOUND PO MISCELLANEOUS 1 EACH MISC MISC PRN (17:30)
[2023-07-26] MEDS: 0.9%NACL 1000ML 1,000 ML IV SCH (17:33)
[2023-07-26] MEDS: SOLU-MEDROL 40MG VIAL IVP SCH (17:33)
[2023-07-26] MEDS: ONDANSETRON 4MG INJ IV PRN (17:37)
[2023-07-26 17:48] LABS: SARS-CoV-2, RNA, NAAT NEGATIVE SARS CoV-2 (NEGATIVE)
[2023-07-26 17:52] LABS: INFLUENZA TYPE A Negative For Type A (NEGATIVE); INFLUENZA TYPE B Negative For Type B (NEGATIVE)
[2023-07-26] MEDS ORDERED: SODIUM CHLORIDE 3% FOR INHALATION 4 ML/AMP VIAL.NEB IH ONE ×2 (17:57→22:07)
[2023-07-26 18:33] VITALS: PULSE 60; RESP 14
[2023-07-26] MEDS: IPRATROPIUM/ALBUTEROL SULFATE 3 ML SOLUTION IH SCH ×2 (18:33→22:40)
[2023-07-26] MEDS: FAMOTIDINE 20MG TAB PO SCH (21:17)
[2023-07-26 22:41] VITALS: PULSE 65; RESP 12
[2023-07-27] MEDS: SOLU-MEDROL 40MG VIAL IVP SCH ×2 (01:21→09:31)
[2023-07-27] MEDS: ONDANSETRON 4MG INJ IV PRN (01:25)
[2023-07-27] MEDS ORDERED: SODIUM CHLORIDE 3% FOR INHALATION 4 ML/AMP VIAL.NEB IH ONE (02:05)
[2023-07-27] MEDS: IPRATROPIUM/ALBUTEROL SULFATE 3 ML SOLUTION IH SCH ×4 (02:06→14:15)
[2023-07-27 02:07] VITALS: PULSE 68; RESP 12
[2023-07-27] MEDS: 0.9%NACL 1000ML 1,000 ML IV SCH (06:01)
[2023-07-27 07:06] VITALS: PULSE 71; RESP 18
[2023-07-27 07:07] VITALS: PULSE 70; RESP 18; O2SAT 99
[2023-07-27 07:08] LABS: HEMATOCRIT 43.7 % (42-54); MEAN CORPUSCULAR HEMOGLOBIN 29.8 pg (27.0-33.0); MEAN CORPUSCULAR HGB CONC 33.2 g/dL (32.0-36.0); MEAN CORPUSCULAR VOLUME 89.7 fL (79-99); RED BLOOD CELL COUNT(AUTO) 4.87 MIL/uL (4.50-6.20); RED CELL DISTRIBUTION WIDTH 14.7 % (11.0-15.5); WHITE BLOOD COUNT (AUTO) 7.8 K/uL (4.8-10.8)
[2023-07-27 07:33] LABS: HEMOGLOBIN A1C 5.7 % (4.0-6.0)
[2023-07-27 07:43] LABS: MAGNESIUM 1.8 mg/dL (1.80-2.40); THYROID STIMULATING HORMONE 0.22 uIU/mL (0.36-3.74)
[2023-07-27] MEDS: FAMOTIDINE 20MG TAB PO SCH (08:30)
[2023-07-27] MEDS ORDERED: ENOXAPARIN SODIUM 40 MG/0.4 ML SYRINGE SQ SCH (09:00)
[2023-07-27 09:57] VITALS: PULSE 92; RESP 18
[2023-07-27] MEDS ORDERED: LEVO750T39 PO (13:04)
[2023-07-27] MEDS ORDERED: METH4TAB3 PO (13:04)
[2023-07-27] MEDS: DICYCLOMINE HCL 20 MG TAB PO SCH (13:33)
[2023-07-27 14:15] VITALS: BP 136/89; RESP 22; O2SAT 97
[2023-07-27 14:17] VITALS: PULSE 90
== END 2023-07-27 14:16 | disposition home or self-care (01) ==
LOC: EDH 11:05 → EDHIP 16:50
PROVIDERS: ADMIT Internal Medicine; ATTEND Internal Medicine
DX: J44.1 Chronic obstructive pulmonary disease with (acute) exacerbation (principal); Z20.822 Contact with and (suspected) exposure to COVID-19; K52.9 Noninfective gastroenteritis and colitis, unspecified; I13.0 Hypertensive heart and chronic kidney disease with heart failure and stage 1 through stage 4 chronic kidney disease, or unspecified chronic kidney disease; J43.9 Emphysema, unspecified; I50.32 Chronic diastolic (congestive) heart failure; N18.2 Chronic kidney disease, stage 2 (mild); E11.22 Type 2 diabetes mellitus with diabetic chronic kidney disease; F41.9 Anxiety disorder, unspecified; F32.A Depression, unspecified; G89.29 Other chronic pain; J44.9 Chronic obstructive pulmonary disease, unspecified; I44.4 Left anterior fascicular block; Z86.73 Personal history of transient ischemic attack (TIA), and cerebral infarction without residual deficits; Z87.01 Personal history of pneumonia (recurrent); Z93.3 Colostomy status; Z79.899 Other long term (current) drug therapy; Z98.890 Other specified postprocedural states
CPT/HCPCS: 96372 ×2; 82435; 82947; 84132; 84295; 85018; 94640 ×10; 94664; 96376 ×2; 96361 ×2; 96365; 96366; 96375; 82550; 83735 ×2; 84484 ×2; 80053; 82803; 83880; 83690; 85025; 85378; 87040 ×2; 87077; 87186; 87804 ×2; 83605; 81001; 36415 ×2; 87635; 71045; 71250; 74176; 99291; 93005; 36600; 84145; 83036; 84443; 84100; 80048; 85027; J1100; G0378 ×18; C9803; J7120; J1956; J2405 ×4; J2920 ×3; J1885; J7030; J1650